=== PATIENT | female | born 1940 | race Caucasian/White ===

== ENCOUNTER 2020-02-22 17:43 | Emergency (ER) | payer MEDICARE, BC, SELFPAY ==
[2020-02-22 17:43] VITALS: BP 193/100; PULSE 92; PULSE 94; RESP 24; TEMP 36.2; O2SAT 97; O2SAT 98; BMI 33.0
[2020-02-22 18:08] VITALS: O2SAT 97
--- NOTE | 2020-02-22 18:08 | ED.DCSUM_ITS ---
History of Present Illness Chief Complaint: Shortness of Breath Detail of Chief Complaint: Daughter concern for COVID infection Informant: Patient Onset: Month(s) - She reports shortness of breath for 6 months. She is had a runny nose for 4 to 6 months. Context: Gradual Onset Timing: Continuous Quality: Shortness of breath Location: Respiratory Current Severity: Mild Maximum Severity: Moderate Worsened by: Strenuous activity Relieved by: Nothing Associated Symptoms: Allergic-like symptoms Narrative: Patient is an elderly woman who presents because daughter is concerned she may have COVID infection. Patient symptoms have been going on for 4 to 6 months. She had extensive work-up at the [facility] including stress test and blood work. There is concerned she may have rheumatoid arthritis. She has not schedule appointment with nutritional services director. She denies fever, chills or night sweats. She denies ocular, visual or auditory symptoms. She denies change in taste or smell. She denies throat pain. She denies cough, pleuritic chest pain or PND. She does have 2 pillow orthopnea. She denies nausea, vomiting or diarrhea. She denies hematemesis, melena hematochezia. Prior similar symptoms: Yes Recent Illness/Hospitalization: Yes - Past Medical History (1) Hypertension Status: Chronic (2) Depression with anxiety Status: Chronic (3) GERD (gastroesophageal reflux disease) Status: Chronic (4) Rhinitis Status: Chronic Past Medical History - Allergies and Home Meds Allergies/Adverse Reactions: Allergies No Known Allergies Allergy (Verified 01/19/14 15:08) Primary Care Physician: aJke Hester DO [Primary Care Provider] - Prior records reviewed: Yes Surgical History: noncontributory Lives: Alone Smoking Status: Never smoker Alcohol: None Drugs: None Review of Systems General: Denies: Chills, Fever, Malaise, Subjective, Weight loss Eyes: Denies: Visual changes - bilaterally, Blurred Vision - bilaterally ENT: Reports: Rhinorrhea. Denies: Bilateral ear pain, Sore throat Cardiovascular: Denies: Chest pain, Palpitations, Heart racing Respiratory: Reports: Dyspnea, Dyspnea on exertion, Orthopnea. Denies: Cough, Sputum, Paroxysmal nocturnal dyspnea Gastrointestinal: Denies: Abdominal pain, Nausea, Vomiting, Diarrhea, Melena, Hematochezia Genitourinary: Denies: Dysuria, Hematuria, Frequency Musculoskeletal: Denies: Myalgias, Arthralgias, Neck pain, Back pain, Swelling, Extremity Pain, -, - Skin: Denies: Rash, Wounds Neurological: Denies: Headache, Weakness, Numbness Psych: Reports: Depression, Anxiety Hematologic: Denies: Easy bruising, Easy bleeding Allergy: Denies: Uticaria, Swelling of the mouth Physical Exam Vital Signs/Narrative: Vital Signs Temp Pulse Resp BP Pulse Ox 02/22/20 17:43 97.1 F L 94 24 H 193/100 H 97 Inital Vital Signs reviewed: Yes General: Well nourished, Well developed, No Acute Distress Head: Normocephalic, Atraumatic Eyes: Perrl, EOMI ENT: Moist mucous membranes, TM's clear, Nasal congestion. Negative for: Dry mucous membranes, Sinus tenderness Neck: Supple, Nontender Cardiovascular: Regular rate, Regular rhythm, No murmurs, Normal S1, Normal S2 Respiratory: No distress, CTA bilaterally, Chest nontender Abdomen: Soft, Nontender, Nondistended, Normal bowel sounds, No masses Back: Nontender, Normal Inspection. Negative for: CVA tenderness Extremities: Nontender, Edema Skin: Normal color, No rash Neurological: Alert, Oriented x3, Cranial nerves II-XII grossly intact, Normal Strength, Normal Sensation Psychological: Normal affect, Normal Mood Diagnostic/Tx/Re-eval Chest X-Ray - ED: 2 View, Normal, Heart, Bony Structures, - - There is to be scarring left lower lobe. There is no obvious effusion. Patient has numerous surgical clips noted right axillary region. 02/22/20 18:17 Chest PA and Lateral [RAD] Stat Impressions Chest X-Ray 02/22/20 18:17 IMPRESSION: Interstitial lung disease probably representing pulmonary fibrosis but comparisons are not available Electronically Signed: Josiah Hernandez MD at 18:49 EDT , Service support , 02/22/20 18:17 Chest PA and Lateral [RAD] Stat Laboratory Results 02/22/20 02/22/20 18:40 18:40 WBC 6.9 RBC 3.60 L Hgb 10.7 L Hct 32.8 L MCV 91.1 MCH 29.7 MCHC 32.6 RDW Std Deviation 49.9 H RDW Coeff of Tiffany 15.2 H Plt Count 191 MPV 9.3 Immature Gran % (Auto) 0.100 Neut % (Auto) 68.0 Lymph % (Auto) 20.5 Hart % (Auto) 6.9 Eos % (Auto) 3.3 Baso % (Auto) 1.2 H Absolute Neuts (auto) 4.7 Absolute Lymphs (auto) 1.42 Nucleated RBC % 0 Sodium 140 Potassium 3.9 Chloride 108 H Carbon Dioxide 25.0 Anion Gap 7 BUN 13 Creatinine 0.95 Estim Creat Clear Calc 42.14 Est GFR (MDRD) Af Amer 73 Est GFR (MDRD) Non-Af 60 BUN/Creatinine Ratio 13.7 Glucose 161 H Calcium 8.3 L - Medical Decision Making Presents with symptoms of been present for 4 to 6 months. This may represent allergies, autoimmune disorder, congestive heart failure chest x-ray and appropriate labs were ordered. Per patient she had a significant work-up in the working gnosis is possible rheumatoid arthritis. Since patient had symptoms for 6 months and there were no acute findings will discharge to home to follow-up with nutritional services director as recommended by clinicians who cared for her at [facility]. ED Disposition - Plan for ED Patient: Disposition: Home or Assisted Living Diagnosis: Dyspnea on exertion, Nasal congestion, History of hypertension Instructions: ED Dyspnea Referrals: Jake Hester DO [Primary Care Provider] - Doctor,Your [STAFF PHYSICIAN] - 1 Week Additional Instructions: Recommend you make appointment to see nutritional services director as suggested by your doctor.
--- NOTE | 2020-02-22 18:17 | RAD_ITS ---
STUDY: X-RAY CHEST REASON FOR EXAM: Female, 79 years old. SOB X 6 [facility] TECHNIQUE: Frontal and lateral views of the chest. COMPARISON: None. FINDINGS: Surgical clips right axilla. Increased interstitial markings. The lungs are clear and expanded. There is no demonstrated pleural abnormality. Normal size heart. Normal mediastinum and chaparro. Normal visualized pulmonary arteries. Normal visualized aortic arch and descending thoracic aorta. Normal visualized thoracic spine. Normal visualized ribs, clavicles, and shoulders. There is no demonstrated abnormality of the visualized soft tissue structures of the upper abdomen. RAD/Chest PA and Lateral IMPRESSION: Interstitial lung disease probably representing pulmonary fibrosis but comparisons are not available Electronically Signed: Josiah Hernandez MD at 18:49 EDT , Service support ,
[2020-02-22 18:44] VITALS: PULSE 72; O2SAT 98
[2020-02-22 18:52] VITALS: BP 193/100; PULSE 72; RESP 20; TEMP 36.2; O2SAT 98
[2020-02-22 18:52] LABS: Absolute Lymphocyte Count 1.42 X10^3/uL (0.83-4.51); Absolute Neutrophil Count 4.7 X10^3/uL (2.0-7.7); Basophil# 0.08 X10^3/uL; Basophil% 1.2 % (0-1); Eosinophil# 0.23 X10^3/uL; Eosinophils% 3.3 % (0-5); Hematocrit 32.8 % (37-47); Hemoglobin 10.7 g/dL (12.0-15.0); Lymphocyte # 1.42 X10^3/ul (4.0); Lymphocyte % 20.5 % (19-41); Mean Corp Hgb Conc 32.6 g/dL (32-36); Mean Corpuscular Hgb 29.7 pg (27.0-32.0); Mean Corpuscular Volume 91.1 fL (81-99); Mean Platelet Vol. 9.3 fl (6.2-12.0); Monocyte# 0.48 X10^3/uL; Monocyte% 6.9 % (0-10); NRBC Flagged by Analyzer 0 % (0-5); Neutrophil # 4.72 X10^3/uL (2.7-7.7); Platelet Count 191 K/mm3 (150-450); RBC Distribution Width CV 15.2 % (11.6-14.6); RBC Distribution Width SD 49.9 fl (35.1-43.9); White Blood Count 6.9 K/mm3 (4.4-11.0)
[2020-02-22 19:00] LABS: Anion Gap 7 (5-15); BUN 13 mg/dL (7-18); BUN/Creat Ratio 13.7 RATIO (10-20); Calcium,Total 8.3 mg/dL (8.5-10.1); Chloride 108 mmol/L (98-107); Creatinine, Serum 0.95 mg/dL (0.55-1.02); EST Glomerular Filtration Rate 60 mL/min (>60); Est Glom Filt Rate - Afr Amer 73 mL/min (>60); Estimated Creatinine Clearance 42.14 ml/min; Glucose 161 mg/dL (74-106); Potassium 3.9 mmol/L (3.5-5.1); Sodium Level 140 mmol/L (136-145)
[2020-02-22 19:09] VITALS: BP 170/77; PULSE 69; RESP 26; TEMP 36.6; O2SAT 100
[2020-02-22 19:25] VITALS: BP 186/87; PULSE 80; RESP 22; O2SAT 99
== END 2020-02-22 19:43 | disposition home or self-care (01) ==
LOC: ED 19:37
PROVIDERS: Emergency Provider Emergency Medicine; PCP Internal Medicine
DX: R06.09 Other forms of dyspnea (principal); R09.81 Nasal congestion; I10 Essential (primary) hypertension; F41.8 Other specified anxiety disorders; K21.9 Gastro-esophageal reflux disease without esophagitis; R06.01 Orthopnea; J31.0 Chronic rhinitis
CPT/HCPCS: 36415; 71046; 80048; 85025; 99282

== ENCOUNTER → 2021-04-11 10:01 | Outpatient (CLI) | payer MEDICARE, BC, SELFPAY ==
[2021-04-11 10:27] LABS: Amylase 46 U/L (25-115); Lipase 109 U/L (73-393)
== END ==
PROVIDERS: PCP Internal Medicine; Visit Provider Nurse Practitioner
DX: R10.13 Epigastric pain (principal); R19.7 Diarrhea, unspecified
CPT/HCPCS: 82150; 83690

== ENCOUNTER 2021-04-14 18:56 | Emergency (ER) | payer MEDICARE, BC, SELFPAY ==
[2021-04-14 18:58] VITALS: BP 144/77; PULSE 111; RESP 18; TEMP 36.1; O2SAT 100; BMI 32.2
--- NOTE | 2021-04-14 21:31 | EDS_ITS ---
HPI History of Present Illness Chief Complaint: Abn Labs Narrative Narrative: Patient presenting for evaluation secondary to abnormal labs. Patient was in a outside facility emergency department on the secondary to abdominal pain. She had a work-up including CT abdomen and lab work. This showed the patient to be hyponatremic, to have a creatinine of 1.8, and to have some gallstones and sludge. They recommended that she stay in the hospital but she declined this. She received IV fluids and was discharged. Patient followed up with primary care today with additional lab work, and was recommended to come back to the emergency department for fluids. Patient states that her abdominal pain is resolved she has been keeping down fluids, has not been having any new signs or symptoms. Review of systems otherwise negative. [facility] Medical History Anxiety Breast cancer metastasized to bone GERD (gastroesophageal reflux disease) Hypertension Hypothyroidism Interstitial lung disease Home Medications Venlafaxine Xr [Effexor Xr] 75 mg PO DAILY 01/19/14 [History Last Taken Unknown] aspirin 325 mg PO DAILY@0800 01/19/14 [History Last Taken Unknown] benazepril-hydrochlorothiazide [Lotensin Hct 20-12.5 Tablet] 1 tab PO DAILY 01/19/14 [History Last Taken Unknown] furosemide 40 mg PO DAILY 01/19/14 [History Last Taken Unknown] omeprazole 20 mg PO DAILY 01/19/14 [History Last Taken Unknown] potassium chloride [K-Dur] 20 meq PO BID 01/19/14 [History Last Taken Unknown] cetirizine 10 mg PO DAILY 04/14/21 [History Last Taken Unknown] ergocalciferol (vitamin D2) 50,000 unit PO QWEEK 04/14/21 [History Last Taken Unknown] gabapentin 100 mg PO TID 04/14/21 [History Last Taken Unknown] levothyroxine 75 mcg PO DAILY 04/14/21 [History Last Taken Unknown] metoprolol succinate 50 mg PO DAILY 04/14/21 [History Last Taken Unknown] prednisone 10 mg PO DAILY 04/14/21 [History Last Taken Unknown] sulfamethoxazole-trimethoprim See Rx Instructions .ROUTE .COMPLEX 04/14/21 [History Last Taken Unknown] Allergy/AdvReac Type Severity Reaction Status Date / Time tramadol Allergy Other Verified 04/14/21 19:01 Surgical History H/O right mastectomy History of appendectomy Social History Smoking Status: Never smoker ROS ROS ED Constitutional Constitutional ED: Denies chills or fever(s) ENT ENT ED: Denies rhinorrhea Cardiovascular Cardiovascular: Denies chest pain Respiratory/Chest Respiratory/Chest: Denies cough or dyspnea Gastrointestinal Gastrointestinal: Denies abdominal pain, diarrhea, nausea or vomiting Genitourinary Genitourinary ED: Denies dysuria or hematuria Musculoskeletal Musculoskeletal: Denies back pain Integumentary Denies rash Neurologic Neurologic: Denies paresthesias or weakness Psychiatric Psychiatric: Denies depression Endocrine Endocrinology: Denies fatigue Allergic/Immunologic Allergic/Immunologic ED: Denies urticaria EXAM Physical Exam Const Vital Signs: 04/14/21 18:58 04/14/21 20:34 Temperature 96.9 F L Temperature Source Temporal Pulse Rate 111 H Respiratory Rate 18 Respiratory Effort Normal Respiratory Pattern Normal Blood Pressure 144/77 H Blood Pressure Mean 99 Pulse Ox 100 Oxygen Delivery Method Room Air Positive well nourished and well developed General Appearance ED: well developed and NAD HEENT Reports moist mucous membranes Negative for trauma or tenderness Eyes EOMs intact bilaterally Neck no lymphadenopathy, supple and no JVD Chest Wall inspection of chest normal Resp normal respiratory effort and clear to auscultation bilaterally Cardio regular rate, regular rhythm, no murmurs and peripheral pulses 2+ throughout Rate: other Other Details: Patient was tachycardic upon arrival, was not tachycardic upon my exam. GI normal to inspection, nondistended, normoactive bowel sounds, non-tender and no masses Palpation: soft Back/Spine normal to inspection Extremity normal to inspection General Extremety ED: Negative for tenderness Neuro oriented x3 and no sensory deficits noted Sensorium / Orientation: alert Motor Exam: strength 5/5 throughout Psych mental status grossly normal Skin no rashes or lesions noted MDM MDM MDM Narrative Medical decision making narrative: Patient presented due to concerns for abnormal labs. I reviewed the patient's lab work, she had a creatinine of 1.8 on the 11th and her lab work from today she has a creatinine of 1.08 with normalizing electrolytes. Her CT did not demonstrate cholecystitis. Her CBC today demonstrated a downward trend of her leukocytosis with a white blood cell count of 12. Patient is abdominal pain-free. At this point I do not feel that further laboratory work-up or imaging are indicated. She was recommended to continue her hydration at home. She was educated on signs and symptoms which to return for biliary colic. Patient was discharged in stable condition. Discharge Plan Triage Chief Complaint: Abn Labs ED Provider: Norm Sebastian Dx/Rx/DC Orders Clinical Impression: Hx of dehydration, Gallstones Instructions: Dehydration, ED Gallstones with Biliary Colic Prescriptions: No Action furosemide 40 MG tablet 40 mg PO DAILY RF: 0 aspirin 325 MG tablet 325 mg PO DAILY@0800 RF: 0 benazepril-hydrochlorothiazide [Lotensin HCT] 1 TAB tablet 1 tab PO DAILY RF: 0 potassium chloride [Klor-Con M20] 20 MEQ tablet 20 meq PO BID RF: 0 omeprazole 20 MG capsule 20 mg PO DAILY RF: 0 Venlafaxine Xr [Effexor Xr] 75 MG capsule 75 mg PO DAILY RF: 0 prednisone 10 mg Tablet 10 mg PO DAILY RF: 0 cetirizine 10 mg Tablet 10 mg PO DAILY RF: 0 metoprolol succinate 50 mg tablet extended release 24 hr 50 mg PO DAILY RF: 0 sulfamethoxazole-trimethoprim 800-160 mg tablet See Rx Instructions .ROUTE .COMPLEX RF: 0 levothyroxine 75 mcg Tablet 75 mcg PO DAILY RF: 0 gabapentin 100 mg capsule 100 mg PO TID RF: 0 ergocalciferol (vitamin D2) 1,250 mcg (50,000 unit) capsule 50,000 unit PO QWEEK RF: 0 Primary Care Provider: Julissa Ariza Referrals: Julissa Ariza MD [Primary Care Provider] - As Needed Disposition Disposition: Home, self care
[2021-04-14 21:46] VITALS: RESP 16
== END 2021-04-14 21:47 | disposition home or self-care (01) ==
PROVIDERS: Emergency Provider Emergency Medicine; PCP Internal Medicine
DX: E86.0 Dehydration (principal); K80.20 Calculus of gallbladder without cholecystitis without obstruction; F41.9 Anxiety disorder, unspecified; I10 Essential (primary) hypertension; K21.9 Gastro-esophageal reflux disease without esophagitis; E03.9 Hypothyroidism, unspecified; Z79.52 Long term (current) use of systemic steroids; Z79.82 Long term (current) use of aspirin; Z79.899 Other long term (current) drug therapy; Z90.11 Acquired absence of right breast and nipple
CPT/HCPCS: 99282

== ENCOUNTER 2022-10-31 21:32 | Emergency (ER) | payer MEDICARE, BC, SELFPAY ==
[2022-10-31 21:33] VITALS: BP 169/90; PULSE 96; RESP 16; TEMP 36.7; O2SAT 98; BMI 31.3
[2022-10-31] MEDS: Morphine 4 MG/ML Syringe IV (21:53)
[2022-10-31] MEDS: Ondansetron 4 MG/2 ML Vial IV (21:53)
--- NOTE | 2022-10-31 22:10 | RAD_ITS ---
INDICATION: injury EXAMINATION/TECHNIQUE: X-RAY - LEFT XR Hip Unilateral with Pelvis when performed; 2-3 Views 3 VIEWS COMPARISON: None. FINDINGS: SOFT TISSUES: Mild increased stool. No soft tissue swelling or gas. BONES/JOINTS: Status post left femoral intramedullary mirian and 2 fixation screws with 16 mm drill fragment within the left femoral intratrochanteric region. Mild osteoarthritic changes in the bilateral hips and moderate osteophytosis and joint space narrowing in the pubic symphysis. Degenerative changes in the visualized spine. Age-indeterminate nondisplaced fracture of the posterior left acetabulum. Normal alignment. Preservation of the joint space.. No sclerotic or destructive changes observed. RAD/HIP, UNI W/ Pelvis 2-3 Views IMPRESSION: Age-indeterminate nondisplaced fracture of the posterior left acetabulum. Electronically Signed: Mike Parson MD at 22:41 EST ,
--- NOTE | 2022-10-31 22:10 | RAD_ITS ---
INDICATION: injury EXAMINATION/TECHNIQUE: X-RAY - LEFT XR Knee 1 or 2 Views 2 VIEWS COMPARISON: None. FINDINGS: SOFT TISSUES: No soft tissue swelling or gas. No radiopaque foreign body. BONES/JOINTS: Femoral intramedullary mirian and distal diaphyseal fixation screw in place with associated callus. No acute fracture or subluxation.. Normal alignment. Mild joint space narrowing and osteophytosis. No sclerotic or destructive changes observed. RAD/Knee 1 or 2 Views IMPRESSION: No acute fracture or dislocation. Mild osteoarthritic changes. Electronically Signed: Mike Parson MD at 22:43 EST ,
--- NOTE | 2022-10-31 22:15 | EDS_ITS ---
HPI History of Present Illness Chief Complaint: Lower Extremity Injury Detail of Chief Complaint: Pain left knee and left femur status post fall Informant: patient Occured/Mechanism Mechanism/Context: Yes injury, Yes blunt trauma and Yes same level fall Comment: Patient states she stubbed her toe. She apparently twisted her leg and developed pain in her knee and femur. She states she has a mirian in her femur. She denies history of hip fracture. She does have a remote history of breast cancer. She states she had metastasis to bone. Daughter states she did not. She does have history of osteoporosis. Onset/Context/Timing Onset: Hours Context: Sudden Onset Timing: Continuous Quality of Pain: Dull and Aching Location: Left lower extremity from the greater trochanteric region to the knee Current Severity: Mild Maximum Severity: Severe Worsened by: Movement of the left Relieved by: None thing Associated Symptoms Associated Symptoms: Positive for Loss of Funtion Narrative Narrative: Patient is an 82-year-old woman with remote history of breast cancer and osteoporosis who had a traumatic fall with a twisting mechanism injury. She complains of knee pain. She was unable to bear weight. She arrived by ambulance in position of comfort. Her hip is flexed to 90 degrees and knee is flexed to 30 degrees. She denies head trauma. She denies neck pain. She denies headache. She denies paresthesia, anesthesia or motor works. She denies cardiac or respiratory sy mptoms. Tetanus Immunization: Unknown Prior similar symptoms: No Recent Illness/Hospitalization: No [facility] Medical History Anxiety Breast cancer metastasized to bone GERD (gastroesophageal reflux disease) Hypertension Hypothyroidism Interstitial lung disease Home Medications Venlafaxine Xr [Effexor Xr] 75 mg PO DAILY 01/19/14 [History Last Taken Unknown] aspirin 325 mg tablet 325 mg PO DAILY@0800 01/19/14 [History Last Taken Unknown] benazepril 20 mg-hydrochlorothiazide 12.5 mg tablet (Lotensin HCT) 1 tab PO DAILY 01/19/14 [History Last Taken Unknown] furosemide 40 mg tablet 40 mg PO DAILY 01/19/14 [History Last Taken Unknown] omeprazole 20 mg capsule,delayed release 20 mg PO DAILY 01/19/14 [History Last Taken Unknown] potassium chloride 20 mEq tablet,extended release(part/cryst) (Klor-Con M) 20 meq PO BID 01/19/14 [History Last Taken Unknown] cetirizine 10 mg tablet 10 mg PO DAILY 04/14/21 [History Last Taken Unknown] ergocalciferol (vitamin D2) 1,250 mcg (50,000 unit) capsule 50,000 unit PO QWEEK 04/14/21 [History Last Taken Unknown] gabapentin 100 mg capsule 100 mg PO TID 04/14/21 [History Last Taken Unknown] levothyroxine 75 mcg tablet 75 mcg PO DAILY 04/14/21 [History Last Taken Unknown] metoprolol succinate 50 mg tablet,extended release 24 hr 50 mg PO DAILY 04/14/21 [History Last Taken Unknown] prednisone 10 mg tablet 10 mg PO DAILY 04/14/21 [History Last Taken Unknown] sulfamethoxazole 800 mg-trimethoprim 160 mg tablet See Rx Instructions .Route .COMPLEX 04/14/21 [History Last Taken Unknown] oxycodone-acetaminophen 5 mg-325 mg tablet 1 tab PO Q6H PRN PRN Pain 3 days #12 TABLETS 11/01/22 [Rx Last Taken Unknown] Allergy/AdvReac Type Severity Reaction Status Date / Time tramadol Allergy Other Verified 04/14/21 19:01 tb shot Allergy Other Uncoded 10/31/22 21:36 Surgical History H/O right mastectomy History of appendectomy Social History (Updated 10/31/22 @ 22:[address] Mookie Tello MD) household members: none Smoking Status: Never smoker substance use type: does not use ROS ROS ED Constitutional Constitutional ED: Denies chills, fever(s), subjective, sweats or weight loss Eyes Eyes: Denies blurry vision, change in vision or diplopia ENT ENT ED: Denies ear pain, rhinorrhea or sore throat Cardiovascular Cardiovascular: Denies chest pain or palpitations Respiratory/Chest Respiratory/Chest: Denies cough, dyspnea or dyspnea on exertion Gastrointestinal Gastrointestinal: Denies abdominal pain, nausea or vomiting Genitourinary Genitourinary ED: Denies dysuria or hematuria Musculoskeletal Musculoskeletal: Reports other Details: Per HPI narrative ; Denies arthralgias, myalgias or neck pain Integumentary Denies Abrasions or rash Neurologic Neurologic: Denies headache(s), paresthesias or weakness Hematologic/Lymphatic Hematologic/Lymphatic: Denies easy bleeding or easy bruising EXAM Physical Exam Const Vital Signs: 10/31/22 21:33 Temperature 98.0 F Temperature Source Temporal Pulse Rate 96 Respiratory Rate 16 Blood Pressure 169/90 H Blood Pressure Mean 116 Pulse Ox 98 Oxygen Delivery Method Room Air Positive well nourished, well developed and obese Constitutional Narrative: Patient appears uncomfortable. General Appearance ED: well developed; Negative for NAD Nutritional Appearance: obese HEENT Reports moist mucous membranes HEENT Narrative: There is no evidence of trauma to the ear. There is no septal deviation hematoma. There is no dental trauma. normocephalic and atraumatic Eyes Eyes Narrative: Pupils equal round reactive. Extract [place]. Sclera is anicteric. Conjunctive is pink. Neck full ROM and supple Neck Narrative: There is no pain ovation cervical spine. C-spine was cleared as criteria. Resp normal respiratory effort, no retractions and clear to auscultation bilaterally Cardio regular rate, regular rhythm, S1 normal heart sound, S2 normal heart sound and no murmurs GI non-tender, non-distended and no masses Palpation: soft Back/Spine no CVA tenderness Extremity Extremity Narrative: The left knee is swollen. There is pain ovation over the patella. There is an effusion. Varus valgus stress testing causes pain with no obvious laxity. Unable to perform modified Lara's or Javy's test because of pain. Patient does have pain in the greater trochanteric region with logrolling. She does not complain of pain in the groin. There is no pain ovation over the pubic symphysis, left ischial tuberosity or left iliac wing. General Extremety ED: Yes weight-bearing difficulty; Negative for cyanosis or edema General Extremity: weight-bearing difficulty; Negative for cyanosis or edema Neuro oriented x3, CN's II-XII intact bilaterally, No moves all extremities and no sensory deficits noted Sensorium / Orientation: alert Motor Exam: strength 5/5 throughout Plantar Reflex: Downgoing: bilateral Psych mental status grossly normal Skin no wounds Lesions: no lesions Rashes: no rashes MDM MDM MDM Narrative Medical decision making narrative: IV was established. Patient was medicated with 4 mg of Zofran and 4 mg of morphine. X-ray of the femur and knee were ordered to evaluate for contusion versus fracture versus meniscus/ACL injury. Imaging of the head and neck was not obtained per the Stephens CT head rule and Nexus criteria. In light of the formal read by radiologist CT of the left hip was obtained to assess if the fracture is acute or not and if there is any displacement prior to speaking with orthopedics regarding treatment and plan. CT reveals no evidence of fracture. Patient was referred to Dr. Vlad Morris. Crutches and weight-bear as tolerated knee immobilizer. Radiography X-Ray: - (2 view x-ray of the knee was obtained and reveals an effusion. There is evidence of prior surgery with intramedullary mirian. There is no fracture, subluxation or dislocation noted. Three-view x-ray of the left hip reveals question of a acetabular fracture seen only on one view. Radiologist read th) Diagnostic Testing: Clinical Impression(s) from Imaging Studies Hip/Pelvis X-Ray 10/31/22 22:10 IMPRESSION: Age-indeterminate nondisplaced fracture of the posterior left acetabulum. Electronically Signed: Mike Parson MD at 22:41 EST Reading Location ID and State: [employer] / [place] [employer] , Service support , Knee X-Ray 10/31/22 22:10 IMPRESSION: No acute fracture or dislocation. Mild osteoarthritic changes. Electronically Signed: Mike Parson MD at 22:43 EST Reading Location ID and State: [facility] / [place] [employer] , Service support , Pelvis CT 10/31/22 22:53 IMPRESSION: 1. No acute fracture or dislocation. 2. Osteoarthritic changes in the hips, pelvis and spine. 3. Left adnexal 2 cm cystic structure, abnormal for this patient''s age group. Can be further characterized with nonemergent pelvic ultrasound. Electronically Signed: Mike Parson MD at 23:37 EST Reading Location ID and State: [email or web address] / [place] [employer] , Service support , Discharge Plan Triage Chief Complaint: Lower Extremity Injury ED Provider: Mookie Tello Dx/Rx/DC Orders Clinical Impression: Traumatic effusion of knee joint, Hypertension, Inability to ambulate due to left knee Instructions: ED Knee Effusion Prescriptions: New oxycodone-acetaminophen [oxycodone-acetaminophen] 5-325 mg tablet 1 tab PO Q6H PRN PRN (Reason: Pain) 3 Days Qty: 12 0RF No Action furosemide 40 MG tablet 40 mg PO DAILY aspirin 325 MG tablet 325 mg PO DAILY@0800 benazepril-hydrochlorothiazide [Lotensin HCT] 1 TAB tablet 1 tab PO DAILY potassium chloride [Klor-Con M20] 20 MEQ tablet 20 meq PO BID omeprazole 20 MG capsule 20 mg PO DAILY Venlafaxine Xr [Effexor Xr] 75 MG capsule 75 mg PO DAILY prednisone 10 mg Tablet 10 mg PO DAILY cetirizine 10 mg Tablet 10 mg PO DAILY metoprolol succinate 50 mg tablet extended release 24 hr 50 mg PO DAILY Label Comments: TAKE 1 TABLET BY MOUTH DAILY sulfamethoxazole-trimethoprim 800-160 mg tablet See Rx Instructions .ROUTE .COMPLEX Label Comments: Take 1 tablet by mouth three times a week. Rx Instructions: 1 TAB orally 3 times a week levothyroxine 75 mcg Tablet 75 mcg PO DAILY gabapentin 100 mg capsule 100 mg PO TID Label Comments: TAKE 2 CAPSULES BY MOUTH THREE TIMES DAILY FOR 2 WEEKS; THEN DECREASE TO 1 CAPSULE THREE TIMES DAILY ergocalciferol (vitamin D2) 1,250 mcg (50,000 unit) capsule 50,000 unit PO QWEEK Label Comments: Take 1 capsule by mouth one time a week. Primary Care Provider: Julissa Ariza Referrals: Julissa Ariza MD [Primary Care Provider] - Disposition Disposition: Home, Self Care
--- NOTE | 2022-10-31 22:53 | CT_ITS ---
EXAM: CT Pelvis W/O Contrast Injection HISTORY: Evaluate possible posterior left acetabular fractu TECHNIQUE: CT Pelvis W/O Contrast Injection A radiation dose optimization technique was used for this scan. COMPARISON: 10/31/2022. LIMITATIONS: None. FINDINGS: BOWEL/MESENTERY: Scattered colonic diverticulosis without discrete evidence of acute diverticulitis.. APPENDIX: Not visualized. PERITONEUM: Moderate atherosclerotic calcifications. REPRODUCTIVE ORGANS: 2 cm cystic structure in the left adnexa. BONES/SOFT TISSUES: Status post left femoral intramedullary mirian and femoral neck fixation screws and drill fragment in the left femoral intratrochanteric region. The prior noted left posterior acetabular fracture not visualized. No acute osseous abnormality. Mild osteoarthritic changes in the bilateral hips. Moderate degenerative changes in the pubic symphysis. Degenerative changes in the visualized spine with severe spinal canal narrowing worst at L4-5 due to disc bulge and facet hypertrophy. OTHER: Small fat-containing umbilical hernia. CT/Pelvis without IV Contrast IMPRESSION: 1. No acute fracture or dislocation. 2. Osteoarthritic changes in the hips, pelvis and spine. 3. Left adnexal 2 cm cystic structure, abnormal for this patient''s age group. Can be further characterized with nonemergent pelvic ultrasound. Electronically Signed: Mike Parson MD at 23:37 EST ,
[2022-11-01] MEDS: Morphine 4 MG/ML Syringe IV (01:57)
[2022-11-01 02:45] VITALS: RESP 18
--- NOTE | 2022-11-01 02:46 | ED.RN ---
PT AND PT FAMILY STATE THEY WOULD LIKE PRESCRIPTION SENT TO [facility] De Correspondent. DR. MENDES NOTIFIED. DR. MENDES STATED HE WILL SEND THE PRESCRIPTION TO [facility].
== END 2022-11-01 02:47 | disposition home or self-care (01) ==
PROVIDERS: Emergency Provider Emergency Medicine; PCP Internal Medicine; Visit Provider Emergency Medicine
DX: M25.462 Effusion, left knee (principal); R26.2 Difficulty in walking, not elsewhere classified; I10 Essential (primary) hypertension; E03.9 Hypothyroidism, unspecified; E66.9 Obesity, unspecified; Z79.899 Other long term (current) drug therapy
CPT/HCPCS: 72192; 73502; 73560; 96374; 96375; 99283; A4216; J2405

== ENCOUNTER 2023-06-06 13:09 | Emergency (ER) | payer MEDICARE, BC, SELFPAY ==
[2023-06-06 13:11] VITALS: BP 160/106; PULSE 87; RESP 16; TEMP 36.4; O2SAT 98; BMI 31.4
--- NOTE | 2023-06-06 13:12 | EKG12_ITS ---
Test Reason : POSS STROKE Blood Pressure : / mmHG Vent. Rate : 086 BPM Atrial Rate : 086 BPM P-R Int : 186 ms QRS Dur : 078 ms QT Int : 400 ms P-R-T Axes : 043 -03 188 degrees QTc Int : 478 ms Sinus rhythm with occasional Premature ventricular complexes T wave abnormality, consider anterolateral ischemia Prolonged QT Abnormal ECG Confirmed by TERESA GALLO, GARETT ([id number]), editorial clerk BILL WEI ([id number]) on 06/07/2023 1:29:22 PM Referred By: Confirmed By:GARETT MOORE MD
--- NOTE | 2023-06-06 13:14 | EX.ED.DYSGE1 ---
HPI <SAVANNAH Roche - Last Filed: 06/06/23 15:11> History of Present Illness Chief Complaint: Neuro S/Sx Narrative Narrative: 83-year-old female with PMH of HTN, hypothyroidism, breast cancer presents with change in speech. Her daughter lives with her and at 11 AM noted she was speaking slowly. Her speech was not slurred or incoherent. Patient states her mouth feels dry. She is also feeling weak with ambulation and has had months of dyspnea on exertion. Daughter is concerned about her heart. She denies chest pain and is not short of breath at rest. She has no headache, nausea or vomiting, or focal motor or sensory changes. PFSH <SAVANNAH Roche - Last Filed: 06/06/23 15:11> [facility]LY [facility] Medical History Anxiety Breast cancer metastasized to bone GERD (gastroesophageal reflux disease) Hypertension Hypothyroidism Interstitial lung disease Home Medications Venlafaxine Xr [Effexor Xr] 75 mg PO DAILY 01/19/14 [History Last Taken Unknown] benazepril 20 mg-hydrochlorothiazide 12.5 mg tablet (Lotensin HCT) 1 tab PO DAILY 01/19/14 [History Last Taken Unknown] furosemide 40 mg tablet 40 mg PO DAILY 01/19/14 [History Last Taken Unknown] omeprazole 20 mg capsule,delayed release 20 mg PO DAILY 01/19/14 [History Last Taken Unknown] potassium chloride 20 mEq tablet,extended release(part/cryst) (Klor-Con M) 20 meq PO BID 01/19/14 [History Last Taken Unknown] cetirizine 10 mg tablet 10 mg PO DAILY 04/14/21 [History Last Taken Unknown] ergocalciferol (vitamin D2) 1,250 mcg (50,000 unit) capsule 50,000 unit PO QWEEK 04/14/21 [History Last Taken Unknown] levothyroxine 75 mcg tablet 75 mcg PO MOTUWETHFR 04/14/21 [History Last Taken Unknown] metoprolol succinate 50 mg tablet,extended release 24 hr 50 mg PO DAILY 04/14/21 [History Last Taken Unknown] prednisone 10 mg tablet 10 mg PO DAILY 04/14/21 [History Last Taken Unknown] sulfamethoxazole 800 mg-trimethoprim 160 mg tablet See Rx Instructions .Route .COMPLEX 04/14/21 [History Last Taken Unknown] levothyroxine 50 mcg tablet 50 mcg PO SUSA 11/01/22 [History Last Taken Unknown] oxycodone-acetaminophen 5 mg-325 mg tablet 1 tab PO Q6H PRN PRN Pain 3 days #12 TABLETS 11/01/22 [Rx Last Taken Unknown] Allergy/AdvReac Type Severity Reaction Status Date / Time tramadol Allergy Other Verified 06/06/23 13:19 tb shot AdvReac Unknown Other Uncoded 06/06/23 13:19 Surgical History H/O right mastectomy History of appendectomy Social History (Updated 10/31/22 @ 22:[address] Mookie Tello MD) household members: none Smoking Status: Never smoker substance use type: does not use ROS <SAVANNAH Roche - Last Filed: 06/06/23 15:11> ROS ED ROS Narrative Constitutional: Negative for fever, chills, malaise. Eyes: Negative for visual change. ENT: Negative for sore throat, ear pain, rhinorrhea. CVS: Negative for palpitations, chest pain, syncope. Respiratory: Positive for shortness of breath. Negative for cough. GI: Negative for abdominal pain, nausea, vomiting, diarrhea. : Negative for dysuria. Neuro: Negative for headache, motor/sensory dysfunction. EXAM <SAVANNAH Roche - Last Filed: 06/06/23 15:11> Physical Exam Narrative Exam Narrative: CONST: Patient sitting in no acute distress. EYES: Normal inspection. PERRLA, EOMI. ENT: Normal inspection, dry mucous membranes. NECK: Normal inspection. RESP: No respiratory distress, CTAB. CVS: Regular rate and rhythm, no murmur, no gallop. ABD: Soft and nontender, no guarding or rebound, nondistended. SKIN: Color normal, no rash, warm, dry, intact. EXTREMITIES: Normal appearance, no pedal edema. NEURO: Oriented x4. Visual dunaway intact, normal upper and lower extremity strength, sensation, no drift, normal [id number] and [id number], normal speech, no extinction. NIH is 0. PSYCH: Normal affect. Const Vital Signs: 06/06/23 13:11 06/06/23 13:28 06/06/23 15:08 Temperature 97.6 F L Temperature Source Oral Pulse Rate 87 86 92 Respiratory Rate 16 18 Blood Pressure 160/106 H 160/106 H Blood Pressure Mean 124 124 Pulse Ox 98 98 97 Oxygen Delivery Method Room Air Room Air <Dr. Jan Mendez MD - Last Filed: 06/06/23 13:52> Physical Exam Const Vital Signs: 06/06/23 13:11 06/06/23 13:28 06/06/23 15:08 Temperature 97.6 F L Temperature Source Oral Pulse Rate 87 86 92 Respiratory Rate 16 18 Blood Pressure 160/106 H 160/106 H Blood Pressure Mean 124 124 Pulse Ox 98 98 97 Oxygen Delivery Method Room Air Room Air MDM <SAVANNAH Roche - Last Filed: 06/06/23 15:11> MDM MDM Narrative Medical decision making narrative: History gathered from: Patient and daughter Daughter thought patient's speech was slow around 11 AM prompting her to come in. Code stroke was called in triage. Patient is awake and alert with GCS 15. During my examination her speech is normal with no aphasia or dysarthria. She is neurologically intact with NIH of 0 so I canceled the code stroke and do not think she needs a CT brain scan. She has dry mucous membranes with an otherwise unremarkable exam. Her dry mouth may have caused her speech difficulty earlier. Patient and daughter also concerned about this ongoing dyspnea on exertion for last couple months so cardiac work-up was ordered. CBC is WNL. BMP shows mild hypokalemia at 3.3 which was replaced p.o., and slight elevation of creatinine to 1.22 with normal electrolytes. Clinically she looks dehydrated so she was given 1 mg of IV fluids. EKG is sinus rhythm with nonspecific T wave inversions and troponin is 29 ruling out ACS. CXR shows no acute process. I suspect her chronic dyspnea on exertion is from the radiation damage causing interstitial lung disease. She states her inspector metal can referred her to cardiology for evaluation which is appropriate. Patient was discharged in stable condition. Differential for chronic dyspnea: Pneumonia, viral URI, CHF, interstitial lung disease among others In I have personally performed a face to face assessment of the patient and have reviewed the HIRAM Note. I performed a substantive portion of the visit including all aspects of the following. My merida findings include: History is 83-year-old female daughter brought her in because she thought that she just has not been herself lately and was concerned she may be having underlying cardiac disease. She has never had an VT or any cardiac surgery. She has had negative stress test in the past and daughter believes. Patient's had breast cancer and is undergoing radiation therapy for it which it caused her wound disease from radiation therapy. She denies any chest pain. No hemoptysis. Exam is [HEENT exam unremarkable. Normal speech. No facial droop. Extra motions are intact. Neck nontender. No JVD. Lungs clear to auscultation bilaterally. Heart regular rhythm no murmur. Chest wall nontender. Abdomen soft nontender. Moving all 4 extremities. Calves are nontender without edema or cords. Equal symmetrical radial pulses. Neurologically she is awake and alert. Answer questions following commands. NIH is 0.] Medical Decision Making [83-year-old brought in for evaluation of possible underlying cardiac disease. She is not having chest pain. She has a benign exam.] Other additions or changes: [None] Lab Data Labs: Laboratory Results - last 24 hr 06/06/23 06/06/23 06/06/23 13:15 13:15 14:25 WBC Cancelled 8.7 Corrected WBC Cancelled RBC Cancelled 4.20 Hgb Cancelled 13.4 Hct Cancelled 40.0 MCV Cancelled 95.2 MCH Cancelled 31.9 MCHC Cancelled 33.5 RDW Std Deviation Cancelled 49.1 H RDW Coeff of Tiffany Cancelled 14.4 Plt Count Cancelled 160 MPV Cancelled 11.2 Immature Gran % (Auto) Cancelled 0.100 Neut % (Auto) Cancelled 72.1 H Lymph % (Auto) Cancelled 16.1 L Duval % (Auto) Cancelled 8.9 Eos % (Auto) Cancelled 1.1 Baso % (Auto) Cancelled 1.7 H Absolute Neuts (auto) Cancelled 6.3 Absolute Lymphs (auto) Cancelled 1.41 Total Counted Cancelled Neutrophils % (Manual) Cancelled Band Neutrophils % Cancelled Lymphocytes % (Manual) Cancelled Monocytes % (Manual) Cancelled Eosinophils % (Manual) Cancelled Basophils % (Manual) Cancelled Metamyelocytes % Cancelled Myelocytes % Cancelled Promyelocytes % Cancelled Blast Cells % Cancelled Plasma Cell % (Manual) Cancelled Other Cells % Cancelled Nucleated RBC % Cancelled 0 Nucleated RBCs/100 WBC Cancelled Differential Comment Cancelled Diff Path Review Cancelled Hypersegmented Neuts Cancelled Atypical Lymphocytes Cancelled Reactive Lymphocytes Cancelled Smudge Cells Cancelled Toxic Granulation Cancelled Toxic Vacuolation Cancelled Dohle Bodies Cancelled Shaheed Rods Cancelled Platelet Estimate Cancelled Plt Morphology Comment Cancelled RBC Morphology Cancelled Cancelled Polychromasia Cancelled Hypochromasia Cancelled Poikilocytosis Cancelled Basophilic Stippling Cancelled Anisocytosis Cancelled Microcytosis Cancelled Macrocytosis Cancelled Spherocytes Cancelled Sickle Cells Cancelled Target Cells Cancelled Tear Drop Cells Cancelled Ovalocytes Cancelled Stomatocytes Cancelled Goff-Bearden Bodies Cancelled [place] Cells Cancelled Bite Cells Cancelled Crenated Cell Cancelled Acanthocytes (Spur) Cancelled Rouleaux Cancelled Schistocytes Cancelled Sodium 141 Potassium 3.3 L Chloride 106 Carbon Dioxide 26.0 Anion Gap 9 BUN 15 Creatinine 1.22 H Estim Creat Clear Calc 29.41 Est GFR (MDRD) Af Amer 54 L Est GFR (MDRD) Non-Af 45 L BUN/Creatinine Ratio 12.3 Glucose 132 H Calcium 9.2 Troponin I High Sens 29 Radiography Diagnostic Testing: Clinical Impression(s) from Imaging Studies Chest X-Ray 06/06/23 13:45 IMPRESSION: Chronic interstitial lung disease. Trace pleural effusions with right basilar atelectasis or inflammation. Electronically Signed: Rupal Rainey MD at 13:56 EDT Reading Location ID and State: [facility] / [place] Tel , Service support , EKG Initial EKG: Attestation: I personally reviewed and interpreted this EKG as follows: Comments: Sinus rhythm with occasional PVCs, 86 bpm, nonspecific inverted T waves, no STEMI criteria Prior EKG tracings: available for review Prior: Changed <Dr. Jan Mendez MD - Last Filed: 06/06/23 13:52> [facility] Narrative Medical decision making narrative: History gathered from: Patient and daughter Daughter thought patient's speech was slow around 11 AM prompting her to come in. Code stroke was called in triage. Patient is awake and alert with GCS 15. During my examination her speech is normal with no aphasia or dysarthria. She is neurologically intact with NIH of 0 so I canceled the code stroke. She does have dry mucous membranes with an otherwise unremarkable exam. Her dry mouth may have caused her speech difficulty earlier. Patient and daughter also concerned about this ongoing dyspnea on exertion for last couple months so cardiac work-up was ordered. In I have personally performed a face to face assessment of the patient and have reviewed the HIRAM Note. I performed a substantive portion of the visit including all aspects of the following. My merida findings include: History is 83-year-old female daughter brought her in because she thought that she just has not been herself lately and was concerned she may be having underlying cardiac disease. She has never had an VT or any cardiac surgery. She has had negative stress test in the past and daughter believes. Patient's had breast cancer and is undergoing radiation therapy for it which it caused her wound disease from radiation therapy. She denies any chest pain. No hemoptysis. Exam is [HEENT exam unremarkable. Normal speech. No facial droop. Extra motions are intact. Neck nontender. No JVD. Lungs clear to auscultation bilaterally. Heart regular rhythm no murmur. Chest wall nontender. Abdomen soft nontender. Moving all 4 extremities. Calves are nontender without edema or cords. Equal symmetrical radial pulses. Neurologically she is awake and alert. Answer questions following commands. NIH is 0.] Medical Decision Making [83-year-old brought in for evaluation of possible underlying cardiac disease. She is not having chest pain. She has a benign exam.] Other additions or changes: [None] History & Record Review Discussion w/independent historian: Patient and Family Lab Data Attestation: I reviewed the patient's lab results. Labs: Laboratory Results - last 24 hr 06/06/23 06/06/23 06/06/23 13:15 13:15 14:25 WBC Cancelled 8.7 Corrected WBC Cancelled RBC Cancelled 4.20 Hgb Cancelled 13.4 Hct Cancelled 40.0 MCV Cancelled 95.2 MCH Cancelled 31.9 MCHC Cancelled 33.5 RDW Std Deviation Cancelled 49.1 H RDW Coeff of Tiffany Cancelled 14.4 Plt Count Cancelled 160 MPV Cancelled 11.2 Immature Gran % (Auto) Cancelled 0.100 Neut % (Auto) Cancelled 72.1 H Lymph % (Auto) Cancelled 16.1 L Duval % (Auto) Cancelled 8.9 Eos % (Auto) Cancelled 1.1 Baso % (Auto) Cancelled 1.7 H Absolute Neuts (auto) Cancelled 6.3 Absolute Lymphs (auto) Cancelled 1.41 Total Counted Cancelled Neutrophils % (Manual) Cancelled Band Neutrophils % Cancelled Lymphocytes % (Manual) Cancelled Monocytes % (Manual) Cancelled Eosinophils % (Manual) Cancelled Basophils % (Manual) Cancelled Metamyelocytes % Cancelled Myelocytes % Cancelled Promyelocytes % Cancelled Blast Cells % Cancelled Plasma Cell % (Manual) Cancelled Other Cells % Cancelled Nucleated RBC % Cancelled 0 Nucleated RBCs/100 WBC Cancelled Differential Comment Cancelled Diff Path Review Cancelled Hypersegmented Neuts Cancelled Atypical Lymphocytes Cancelled Reactive Lymphocytes Cancelled Smudge Cells Cancelled Toxic Granulation Cancelled Toxic Vacuolation Cancelled Dohle Bodies Cancelled Shaheed Rods Cancelled Platelet Estimate Cancelled Plt Morphology Comment Cancelled RBC Morphology Cancelled Cancelled Polychromasia Cancelled Hypochromasia Cancelled Poikilocytosis Cancelled Basophilic Stippling Cancelled Anisocytosis Cancelled Microcytosis Cancelled Macrocytosis Cancelled Spherocytes Cancelled Sickle Cells Cancelled Target Cells Cancelled Tear Drop Cells Cancelled Ovalocytes Cancelled Stomatocytes Cancelled Goff-Bearden Bodies Cancelled [place] Cells Cancelled Bite Cells Cancelled Crenated Cell Cancelled Acanthocytes (Spur) Cancelled Rouleaux Cancelled Schistocytes Cancelled Sodium 141 Potassium 3.3 L Chloride 106 Carbon Dioxide 26.0 Anion Gap 9 BUN 15 Creatinine 1.22 H Estim Creat Clear Calc 29.41 Est GFR (MDRD) Af Amer 54 L Est GFR (MDRD) Non-Af 45 L BUN/Creatinine Ratio 12.3 Glucose 132 H Calcium 9.2 Troponin I High Sens 29 Radiography Chest X-Ray - ED: 2 View, Read by ED Physician, Normal, Heart, Lungs, Mediastinum, Bony Structures, No Acute Disease and Chronic Changes Diagnostic Testing: Clinical Impression(s) from Imaging Studies Chest X-Ray 06/06/23 13:45 IMPRESSION: Chronic interstitial lung disease. Trace pleural effusions with right basilar atelectasis or inflammation. Electronically Signed: Rupal Rainey MD at 13:56 EDT , X-ray, 2 views, AP and lateral shows no acute abnormality. Normal cardiac silhouette. Normal mediastinum. Discharge Plan Triage Chief Complaint: Neuro S/Sx ED Midlevel Provider: Valery Pisano ED Provider: Jan Mendez Dx/Rx/DC Orders Clinical Impression: History of interstitial lung disease, Mild dehydration, Acute hypokalemia Instructions: Dehydration Prescriptions: No Action furosemide 40 MG tablet 40 mg PO DAILY benazepril-hydrochlorothiazide [Lotensin HCT] 1 TAB tablet 1 tab PO DAILY potassium chloride [Klor-Con M20] 20 MEQ tablet 20 meq PO BID omeprazole 20 MG capsule 20 mg PO DAILY Venlafaxine Xr [Effexor Xr] 75 MG capsule 75 mg PO DAILY prednisone 10 mg Tablet 10 mg PO DAILY cetirizine 10 mg Tablet 10 mg PO DAILY metoprolol succinate 50 mg tablet extended release 24 hr 50 mg PO DAILY Patient Comments: TAKE 1 TABLET BY MOUTH DAILY sulfamethoxazole-trimethoprim 800-160 mg tablet See Rx Instructions .ROUTE .COMPLEX Patient Comments: Take 1 tablet by mouth three times a week. Rx Instructions: 1 TAB orally 3 times a week levothyroxine 75 mcg Tablet 75 mcg PO MOTUWETHFR ergocalciferol (vitamin D2) 1,250 mcg (50,000 unit) capsule 50,000 unit PO QWEEK Patient Comments: Take 1 capsule by mouth one time a week. levothyroxine 50 mcg tablet 50 mcg PO SUSA Patient Comments: TAKE 75 MCGS WEDNESDAY TO WEDNESDAY ON AN EMPTY STOMACH AND 50 MCGS WEDNESDAY TO WEDNESDAY FOR FOR THYROID oxycodone-acetaminophen [oxycodone-acetaminophen] 1 TABLET tablet 1 tab PO Q6H PRN PRN (Reason: Pain) 3 Days Qty: 12 0RF Primary Care Provider: Julissa Ariza Referrals: Julissa Ariza MD [Primary Care Provider] - Activity Restrictions/Additional Instructions: Please increase fluids at home and follow-up with your primary care doctor. Disposition Disposition: Home, Self Care
[2023-06-06 13:28] VITALS: BP 160/106; PULSE 86; RESP 18; O2SAT 98
[2023-06-06 13:33] VITALS: BMI 32.3
--- NOTE | 2023-06-06 13:45 | RAD_ITS ---
HISTORY: dyspnea. TECHNIQUE: XR Chest 2 Views. COMPARISON: 02/22/2020. FINDINGS: CARDIOMEDIASTINAL BORDERS: Cardiac silhouette and mediastinal contour unchanged with mild cardiomegaly and calcification of the aorta. LUNGS: Chronic peripheral interstitial opacities. Mild linear right basilar opacity PLEURA: Trace pleural effusions. OSSEOUS STRUCTURES: Degenerative change. Old right lateral rib fractures. High riding humeral heads with chronic rotator cuff disease. Right axillary surgical clips. RAD/Chest PA and Lateral IMPRESSION: Chronic interstitial lung disease. Trace pleural effusions with right basilar atelectasis or inflammation. Electronically Signed: Rupal Rainey MD at 13:56 EDT ,
[2023-06-06 13:50] LABS: Anion Gap 9 (5-15); BUN 15 mg/dL (7-18); BUN/Creat Ratio 12.3 RATIO (10-20); Calcium,Total 9.2 mg/dL (8.5-10.1); Chloride 106 mmol/L (98-107); Creatinine, Serum 1.22 mg/dL (0.55-1.02); EST Glomerular Filtration Rate 45 mL/min (>60); Est Glom Filt Rate - Afr Amer 54 mL/min (>60); Estimated Creatinine Clearance 29.41 ml/min; Glucose 132 mg/dL (74-106); Potassium 3.3 mmol/L (3.5-5.1); Sodium Level 141 mmol/L (136-145); Troponin-I HS 29 pg/mL (3.0-54.0)
[2023-06-06] MEDS: 0.9% Normal Saline 1,000 ML 999 ML IV (14:28)
[2023-06-06 14:46] LABS: Absolute Lymphocyte Count 1.41 X10^3/uL (0.83-4.51); Absolute Neutrophil Count 6.3 X10^3/uL (2.0-7.7); Basophil# 0.15 X10^3/uL; Basophil% 1.7 % (0-1); Eosinophils% 1.1 % (0-5); Hemoglobin 13.4 g/dL (12.0-15.0); Lymphocyte # 1.41 X10^3/ul (0.83-4.51); Lymphocyte % 16.1 % (19-41); Mean Corp Hgb Conc 33.5 g/dL (32-36); Mean Corpuscular Hgb 31.9 pg (27.0-32.0); Mean Corpuscular Volume 95.2 fL (81-99); Mean Platelet Vol. 11.2 fl (6.2-12.0); Monocyte# 0.78 X10^3/uL; Monocyte% 8.9 % (0-10); NRBC Flagged by Analyzer 0 % (0-5); Neutrophil # 6.29 X10^3/uL (2.7-7.7); Neutrophil % 72.1 % (47-70); Platelet Count 160 K/mm3 (150-450); RBC Distribution Width CV 14.4 % (11.6-14.6); RBC Distribution Width SD 49.1 fl (35.1-43.9); White Blood Count 8.7 K/mm3 (4.4-11.0)
[2023-06-06] MEDS: Potassium Chloride Oral Tablet 20 MEQ PO (15:03)
[2023-06-06 15:08] VITALS: PULSE 92; O2SAT 97
[2023-06-06 15:39] VITALS: BP 163/108; PULSE 92; RESP 18; O2SAT 99
[2023-06-09 13:06] LABS: Bedside Glucose 130 mg/dL (74-106)
== END 2023-06-06 15:52 | disposition home or self-care (01) ==
PROVIDERS: Physician Assistant; Emergency Provider Emergency Medicine; PCP Internal Medicine; Visit Provider Emergency Medicine
DX: E86.0 Dehydration (principal); J84.9 Interstitial pulmonary disease, unspecified; C50.919 Malignant neoplasm of unspecified site of unspecified female breast; E87.6 Hypokalemia; E03.9 Hypothyroidism, unspecified; Z85.3 Personal history of malignant neoplasm of breast
CPT/HCPCS: 71046; 80048; 82962; 84484; 85025; 93005; 96360; 99282; J7030; A4216

== ENCOUNTER 2025-04-01 12:14 | Inpatient (IN) | payer MEDICARE, BC, MEDICAID, SELFPAY ==
[2025-04-01] VITALS (20 sets, daily range): BP systolic 73–122; BP diastolic 49–79; PULSE 92–118; RESP 23–30; TEMP 36.8–37.7; O2SAT 93–99; BMI 32.5; BMI 32.8
--- NOTE | 2025-04-01 12:28 | CT_ITS ---
EXAM: BRAIN/HEAD WITHOUT CONTRAST CLINICAL HISTORY: 84 y/o F with ALOC. COMPARISON: None. TECHNIQUE: Routine CT imaging of the head without IV contrast. Additional multiplanar reformats were obtained. Dose reduction techniques were used including intermediate exposure control (AEC),iterative reconstruction technique, and/or mA and/or KV dose adjustments based on patient's size. FINDINGS: Moderate generalized cerebral volume loss with concordant prominence of the ventricles and subarachnoid spaces. Moderate patchy supratentorial white matter hypodensities. The fernandez-white matter interfaces are otherwise maintained. No large intracranial hemorrhage or herniation. Prior ocular lens replacements. The visualized paranasal sinuses and mastoids are unremarkable. No acute calvarial fracture or scalp hematoma. CT/Brain/Head without Contrast IMPRESSION: No acute intracranial finding. Reading Location: [id number]
--- NOTE | 2025-04-01 12:29 | EKG12_ITS ---
Test Reason : ALT LOC Blood Pressure : */* mmHG Vent. Rate : 112 BPM Atrial Rate : 112 BPM P-R Int : 158 ms QRS Dur : 70 ms QT Int : 330 ms P-R-T Axes : 41 -29 36 degrees QTcB Int : 450 ms Sinus tachycardia Cannot rule out Anteroseptal infarct , age undetermined Abnormal ECG Confirmed by Norm King ([id number]), editor house organ BILL WEI ([id number]) on 04/02/2025 11:01:13 AM Referred By: Sonido Bardales Confirmed By: Norm King
--- NOTE | 2025-04-01 12:30 | EDS_ITS ---
HPI History of Present Illness Chief Complaint: Unresponsive Informant: patient and EMS Onset/Context/Timing Onset: Today Context: - (Unknown) Timing: Continuous Current Severity: Moderate Maximum Severity: Moderate Narrative Narrative: 84-year-old female from home with reportedly a history of hypertension, underlying lung disease and breast cancer with metastases. Found unresponsive brought in by squad. Initially hypotensive treated with fluid bolus and pressure improved. Patient is a very limited informant at this time. She will open her eyes. She is really not answering questions. Currently there is no family or friends present. Prior similar symptoms: No (Unknown) Recent Illness/Hospitalization: No (unknown) [facility] Medical History Anxiety Hypothyroidism GERD (gastroesophageal reflux disease) Interstitial lung disease Hypertension Breast cancer metastasized to bone Home Medications ?Medication ?Instructions ?Recorded ?Last Taken ?Type Venlafaxine Xr [Effexor Xr] 75 mg PO DAILY 01/19/14 Un known History benazepril 20 1 tab PO DAILY 01/19/14 Unkn own History mg-hydrochlorothiazide 12.5 mg tablet (Lotensin HCT) furosemide 40 mg tablet 40 mg PO DAILY 01/19/14 Unkn own History omeprazole 20 mg capsule,delayed 20 mg PO DAILY Unknown History release potassium chloride 20 mEq 20 meq PO BID 01/19/14 Unkno wn History tablet,extended release(part/cryst) (Klor-Con M) cetirizine 10 mg tablet 10 mg PO DAILY 04/14/21 Unkn own History ergocalciferol (vitamin D2) 1,250 50,000 unit PO QWEEK 04/14/21 Unknown History mcg (50,000 unit) capsule levothyroxine 75 mcg tablet 75 mcg PO MOTUWETHFR 04/14 Unknown History metoprolol succinate 50 mg 50 mg PO DAILY 04/14/21 Unk nown History tablet,extended release 24 hr prednisone 10 mg tablet 10 mg PO DAILY 04/14/21 Unkn own History sulfamethoxazole 800 See Rx Instructions .Route . COMPLEX 04/14/21 Unknown History mg-trimethoprim 160 mg tablet levothyroxine 50 mcg tablet 50 mcg PO SUSA 11/01/22 Un known History oxycodone-acetaminophen 5 mg-325 1 tab PO Q6H PRN PRN Pain 3 days 11/01/22 Unknown Rx mg tablet #12 TABLETS Allergy/AdvReac Type Severity Reaction Status Date / Time tramadol Allergy Other Verified 06/06/23 13:19 tuberculin, purified protein AdvReac Severe Other Verified 06/15/23 13:19 deriva Surgical History History of appendectomy H/O right mastectomy Social History household members: none Smoking Status: Never smoker substance use type: does not use ROS ROS ED ROS Narrative Unable to obtain at this time due to the patient's confusion. Review of Systems ROS Unobtainable: due to mental status EXAM Physical Exam Narrative Exam Narrative: 84-year-old female sitting upright in bed. Vital signs currently are stable and afebrile. She is tachycardic at 114. Low blood pressure 101/63. On 4 L of oxy gen she is 95%. She is not hypoxic on oxygen. H EENT exam she will open her eyes. Pupils round reactive light. Mildly dry mucous membranes. There is no signs of trauma to her face or scalp. Nontender no hematoma. Neck nontender no lymphadenopathy. No meningismus. Lungs clear to auscultation bilaterally. Heart tachycardic no murmur rate about 115. Chest wall and ribs are nontender. Abdomen soft nontender. Nondistended. Moving all 4 extremities. Nontender no deformity. Neurologically she will open her eyes. She answers very limited questions. She seems confused. Follow only limited commands. Const Vital Signs: 04/01/25 12:16 04/01/25 12:24 04/01/25 12:28 Temperature 98.3 F 98.3 F Temperature Source Oral Oral Pulse Rate 114 H 114 H Respiratory Rate 25 H 25 H Respiratory Effort Normal Non-Labored Respiratory Pattern Tachypnea Blood Pressure 101/63 101/63 Blood Pressure Mean 75 75 Pulse Ox 95 95 Oxygen Delivery Method Nasal Cannula Nasal Cannula Oxygen Flow Rate (L/min) 4 04/01/25 12:29 04/01/25 13:15 04/01/25 13:19 Temperature 98.3 F 98.3 F Temperature Source Oral Oral Pulse Rate 114 H 106 H Respiratory Rate 25 H 30 H Respiratory Effort Respiratory Pattern Blood Pressure 101/63 84/55 L Blood Pressure Mean 75 64 Pulse Ox 95 93 Oxygen Delivery Method Room Air Room Air Oxygen Flow Rate (L/min) 04/01/25 14:00 Temperature Temperature Source Pulse Rate 114 H Respiratory Rate Respiratory Effort Respiratory Pattern Blood Pressure 73/59 L Blood Pressure Mean 63 Pulse Ox 94 Oxygen Delivery Method Room Air Oxygen Flow Rate (L/min) Positive well nourished and well developed; Negative for cachectic, contractures or unkempt General Appearance ED: well developed; Negative for unkempt, cachectic, cont ractures, cyanotic, diaphoretic, NAD or pallor Nutritional Appearance: Negative for cachectic HEENT Reports dry mucous membranes Mouth ED: Yes dry mucous membranes Mouth: dry mucous membranes Eyes PERRL and EOMs intact bilaterally Neck no lymphadenopathy, supple and no JVD General: Negative for tenderness Chest Wall inspection of chest normal and palpation of chest normal Resp normal respiratory effort and clear to auscultation bilaterally Cardio regular rhythm, S1 normal heart sound, S2 normal heart sound and no murmurs; Negative for regular rate Rate: tachycardic GI normal to inspection, nondistended, normoactive bowel sounds, non-tender, non- distended and no masses Auscultation: normoactive bowel sounds Palpation: soft; Negative for tender, guarding or rebound tenderness present Back/Spine no CVA tenderness General Back: Negative for CVA tenderness Cervical Spine: Negative for cervical spine tenderness Thoracic Spine / Upper Back: Negative for thoracic spinal tenderness or paraspinal muscle tenderness Lumbar Spine / Lower Back: Negative for lumbar spinal tenderness Extremity normal to inspection General Extremety ED: Negative for edema or tenderness General Extremity: Negative for edema Neuro No oriented x3 Neuro Narrative: Confused. Will open her eyes. Follows limited commands. Answers very limited questions. Sensorium / Orientation: orientation impaired and lethargic Motor Exam: general weakness; Negative for strength 5/5 throughout Psych mental status grossly normal Appearance: Negative for unkempt Mood & Affect: Negative for depressed, anxious or tearful Skin no rashes or lesions noted and no wounds General Skin Exam: Negative for jaundice or pallor Lesions: No lesion noted Rashes: No rashes noted Trauma: Negative for abrasion Wounds: Negative for wounds noted MDM MDM MDM Narrative Medical decision making narrative: 84-year-old female decreased mental status, confusion, limited informant appears dehydrated. IV fluids screening labs. Differential would include she has a history of metastatic cancer brain mets. Cerebral edema. Dehydration. Infection versus other etiologies. Repeat exam with daughters present I spoke with her. Patient I suspect that is UTI/urosepsis. She be started on IV Rocephin. Blood and urine cultures to be obtained. She will be written for 2 L of normal saline. She is actively receiving the first. Make sure she has 2 good periphe ral IVs. History & Record Review Discussion w/independent historian: Patient Additional record(s) reviewed:: Prior inpatient record, Prior outpatient record, Prior ED visit and Prior labs Lab Data Attestation: I reviewed the patient's lab results. Lab results narrative: CBC shows a white count 17.2. H&H 13.9 and 41. Platelets 160. UA shows yellow turbid urine. 250 occult blood. Negative nitrites. No red cells. Greater than 100 white cells. No bacteria. Will be treated as a UTI. Culture sent. Chemistry shows sodium 139. Gap 17. BUN and creatinine of 22 and 1.36. Glucose 116. Liver enzymes are normal. Lactic acid elevated 4.4. Blood and urine cultures have been obtained. Labs: Laboratory Results - last 24 hr 04/01/25 04/01/25 04/01/25 12:01 12:55 13:10 WBC 17.2 H RBC 4.49 Hgb 13.9 Hct 41.2 MCV 91.8 MCH 31.0 MCHC 33.7 RDW Std Deviation 44.3 H RDW Coeff of Tiffany 13.2 Plt Count 160 MPV 12.2 H Immature Gran % (Auto) 0.500 Neut % (Auto) 90.0 H Lymph % (Auto) 8.4 L [place] % (Auto) 0.5 Eos % (Auto) 0.1 Baso % (Auto) 0.5 Absolute Neuts (auto) 15.5 H Absolute Lymphs (auto) 1.44 Nucleated RBC % 0 Sodium 139 Potassium 4.1 Chloride 105 Carbon Dioxide 18.1 L Anion Gap 17 H BUN 22 H Creatinine 1.36 H Estim Creat Clear Calc 32.02 L Est GFR (MDRD) Non-Af 39 L BUN/Creatinine Ratio 15.8 Glucose 116 H Lactic Acid 4.4 H* Calcium 9.0 Total Bilirubin 1.02 AST 40 H ALT 18 Alkaline Phosphatase 66 Total Protein 6.7 Albumin 3.5 Globulin 3.2 Albumin/Globulin Ratio 1.1 Urine Color Yellow Urine Clarity Turbid Urine pH 7.0 Ur Specific [place] 1.010 Urine Protein TNP Urine Glucose (UA) Normal Urine Ketones Negative Urine Occult Blood 250 H Urine Nitrite Negative Urine Bilirubin Negative Urine Urobilinogen Normal Ur Leukocyte Esterase 500 H Urine RBC 0 SEEN Urine WBC >100 SEEN Ur Squamous Epith Cells 0 SEEN Urine Bacteria 0 SEEN Urine Mucus 0 SEEN POC Glucose 113 H Radiography Chest X-Ray - ED: 1 View, Read by ED Physician, Heart, Lungs, Mediastinum, Bony Structures, No Acute Disease and Chronic Changes Diagnostic Testing: Clinical Impression(s) from Imaging Studies Brain CT 04/01/25 12:28 IMPRESSION: No acute intracranial finding. Reading Location: [facility] Chest X-Ray 04/01/25 13:25 IMPRESSION: 1. Slight increased interstitial opacities, which may represent acute pneumonitis/pneumonia on chronic interstitial lung disease. 2. Probable trace pleural effusions. Reading Location: [facility] Chest x-ray, portable, single view, interpreted by myself shows chronic interstitial lung findings. No acute pneumonia. Suspect left pleural effusion. Similar to her prior chest x-ray from 2022. Rhythm Strip Rhythm Strip: Sinus Tach Rate: 112 Ectopy: None EKG Initial EKG: Attestation: I personally reviewed and interpreted this EKG as follows: Interpretation: No Acute Injury Pattern and Sinus Tachycardia Comments: Sinus tachycardia rate of 112 no acute signs of [place] or ischemia. Critical Care Time Critical Care Time: Yes Critical care time (excluding procedures): 30-74 minutes, Including time spent:, Discussing w/Patient &/or Family/Blind Teacher, Discussing w/Consultants, Arranging Admission or Transfer, Performing Direct Patient Care at Bedside and - (36 minutes.) Discharge Plan Dx/Rx/DC Orders Clinical Impression: Unresponsive, Acute UTI, Sepsis, Acute hypotension, History of breast cancer, Leukocytosis Disposition Disposition: [facility] Care [facility]
[2025-04-01 13:14] LABS: Bedside Glucose 113 mg/dL (74-106)
[2025-04-01] MEDS: 0.9% Normal Saline (1000mL) 1,000 ML 1000 ML IV (13:18)
[2025-04-01 13:19] LABS: Bacteria 0 SEEN /hpf (None Seen); Mucous, Urine 0 SEEN /hpf (<or=2+); Red Blood Cells-Urine 0 SEEN /hpf (0-5); Squamous Epithelial Cells - UA 0 SEEN /hpf (5-10)
[2025-04-01 13:21] LABS: Color, Urine Yellow (Yellow); Glucose, Dipstick Normal (Normal); Ketone-Dipstick Negative (Negative); Leukocyte Esterase-Dipstick 500 /ul (Negative); Nitrite-Dipstick Negative (Negative); Occult Blood-Urine 250 /ul (Negative); Urine Bilirubin Dipstick Negative (Negative); Urine Clarity Turbid (Clear); Urine Urobilinogen Normal (Normal)
[2025-04-01 13:22] LABS: Absolute Lymphocyte Count 1.44 X10^3/uL (0.83-4.51); Absolute Neutrophil Count 15.5 X10^3/uL (2.0-7.7); Basophil# 0.09 X10^3/uL; Basophil% 0.5 % (0-1); Eosinophil# 0.01 X10^3/uL; Eosinophils% 0.1 % (0-5); Hematocrit 41.2 % (37-47); Hemoglobin 13.9 g/dL (12.0-15.0); Lymphocyte # 1.44 X10^3/ul (0.83-4.51); Lymphocyte % 8.4 % (19-41); Mean Corp Hgb Conc 33.7 g/dL (32-36); Mean Corpuscular Volume 91.8 fL (81-99); Mean Platelet Vol. 12.2 fl (6.2-12.0); Monocyte# 0.08 X10^3/uL; Monocyte% 0.5 % (0-10); NRBC Flagged by Analyzer 0 % (0-5); Neutrophil # 15.51 X10^3/uL (2.7-7.7); Platelet Count 160 K/mm3 (150-450); RBC Distribution Width CV 13.2 % (11.6-14.6); RBC Distribution Width SD 44.3 fl (35.1-43.9); Red Blood Count 4.49 M/mm3 (4.2-5.4); White Blood Count 17.2 K/mm3 (4.4-11.0)
--- NOTE | 2025-04-01 13:25 | RAD_ITS ---
PROCEDURE: CHEST 1 VIEW (PORTABLE) 04/01/2025 REASON FOR EXAM: ALOC TECHNIQUE: Frontal view of the chest. COMPARISON: Chest radiograph 06/06/2023 FINDINGS: Hardware: Unchanged Surgical clips within the right axilla. Heart: Cardiac and mediastinal contours are stable, with mild cardiomegaly. Lungs: Slight increased interstitial opacities. Trace pleural effusions. No pneumothorax. Bones: Degenerative changes are identified within the thoracic spine. Arthrosis of the bilateral glenohumeral joints. Stable right lateral rib fractures. RAD/Chest 1 View (Portable) IMPRESSION: 1. Slight increased interstitial opacities, which may represent acute pneumonit is/pneumonia on chronic interstitial lung disease. 2. Probable trace pleural effusions. Reading Location: [id number]
[2025-04-01 13:28] LABS: White Blood Cells >100 SEEN /hpf (0-5)
[2025-04-01 13:52] LABS: ALB/GLOB Ratio 1.1 RATIO (0.9-2.4); AST(SGOT) 40 U/L (<=31); Alanine Aminotransfer ALT/SGPT 18 U/L (<=34); Albumin, Serum 3.5 g/dL (3.4-4.8); Alkaline Phosphatase 66 U/L (35-104); Anion Gap 17 (5-15); BUN 22 mg/dL (4-19); BUN/Creat Ratio 15.8 RATIO (10-20); Carbon Dioxide 18.1 mmol/L (21.0-32.0); Chloride 105 mmol/L (98-108); Creatinine, Serum 1.36 mg/dL (0.70-1.20); EST Glomerular Filtration Rate 39 (>60); Estimated Creatinine Clearance 32.02 ml/min (50-250); Globulin 3.2 g/dL (2.2-4.2); Glucose 116 mg/dL (70-99); Potassium 4.1 mmol/L (3.3-5.1); Protein, Total 6.7 g/dL (5.9-8.4); Sodium Level 139 mmol/L (133-145); Total Bilirubin 1.02 mg/dL (0.00-1.30)
[2025-04-01 13:53] LABS: Lactic Acid 4.4 mmol/L (0.0-2.0)
[2025-04-01 14:16] LABS: Protein, Urine (Random) 73.6 mg/dL (0.0-12.0)
--- NOTE | 2025-04-01 14:18 | HP.PCM.HOS_ITS ---
HPI - General General Date of Admission: 04/01/25 Date of Service: 04/01/25 Chief Complaint: Was found unresponsive in the morning by the daughter. HPI Narrative MYCHAL DODD, is a 84 F with multiple comorbidities was brought by EMS when daughter found her unresponsive. As per EMS, she only opened her eyes but could not speak and gradually started becoming more responsive. She was also having headache as per the EMS and daughter which has resolved now. EMS vitals temperature 99.2 ?F. BP was low 77/46, RR 14, heart rate 122 Currently she denies chest pain pressure tightness, shortness of breath, nausea or vomiting. As per daughter, she complained of left upper quadrant and left upper back pain/renal angle pain yesterday. Usually she is on 100 mg gabapentin once daily but she gave 1 more as she was instructed by the physician. Currently she denies abdominal pain, acute urine tract symptoms including burning micturition. As per daughter she had UTI in the past without any complaint. In ED, she was hypotensive, tachycardic, BP 84/55, heart rate 114/min but gradually it is getting better. Culture sent IV fluid as per sepsis protocol and patient being admitted in ICU. [facility] Medical History Anxiety Hypothyroidism GERD (gastroesophageal reflux disease) Interstitial lung disease Hypertension Breast cancer metastasized to bone Home Medications ?Medication ?Instructions ?Recorded ?Last Taken ?Type omeprazole 20 mg capsule,delayed 20 mg PO DAILY HEARTB URN 01/19/14 Unknown History release cetirizine 10 mg tablet 10 mg PO DAILY ALLERGIES Unknown History ergocalciferol (vitamin D2) 1,250 50,000 unit PO VILLARREAL VILLARREAL PPLEMENT 04/14/21 03/25/25 History mcg (50,000 unit) capsule levothyroxine 75 mcg tablet 75 mcg PO MOTUWETH THYROID 04/14/21 Unknown History metoprolol succinate 50 mg 50 mg PO DAILY BLOOD PRESSU RE 04/14/21 Unknown History tablet,extended release 24 hr levothyroxine 50 mcg tablet 50 mcg PO SUFRSA THYROID 0 11/01/22 Unknown History acetaminophen 500 mg tablet 1,000 mg PO Q6H PRN pain 0 04/01/25 Unknown History albuterol sulfate 90 mcg/actuation 2 inh inhalation Q6 H PRN shortness 04/01/25 Unknown History aerosol inhaler (Ventolin HFA) of breath or wheezing exemestane 25 mg tablet 25 mg PO DAILY HORMONE 04/01 Unknown History gabapentin 100 mg capsule 100 mg PO DAILY NERVE PAIN 0 04/01/25 Unknown History ondansetron 4 mg disintegrating 4 mg PO Q6H PRN nausea and vomiting 04/01/25 Unknown History tablet potassium chloride 10 mEq 10 meq PO DAILY SUPPLEMENT 0 04/01/25 Unknown History tablet,extended release sacubitril 49 mg-valsartan 51 mg 1 tab PO BID BLOOD CA ESSURE 04/01/25 Unknown History tablet (Entresto) torsemide 20 mg tablet 10 mg PO DAILY WATER PILL Unknown History Allergy/AdvReac Type Severity Reaction Status Date / Time tramadol Allergy Other Verified 06/06/23 13:19 tuberculin, purified protein AdvReac Severe Other Verified 06/15/23 13:19 deriva Surgical History History of appendectomy H/O right mastectomy Social History household members: none Smoking Status: Never smoker substance use type: does not use ROS ROS Narrative Patient is still drowsy and lethargy and could not give full HPI and review of system. Therefore complete 14 ROS unobtainable. As per daughter, she has 50% of her heart pump function. Review of Systems ROS Unobtainable: due to encephalopathy Vital Signs Vital Signs Vital Signs: 04/01/25 12:16 04/01/25 12:24 04/01/25 12:28 Temperature 98.3 F 98.3 F Temperature Source Oral Oral Pulse Rate 114 H 114 H Respiratory Rate 25 H 25 H Respiratory Effort Normal Non-Labored Respiratory Pattern Tachypnea Blood Pressure 101/63 101/63 Blood Pressure Mean 75 75 Pulse Ox 95 95 Oxygen Delivery Method Nasal Cannula Nasal Cannula Oxygen Flow Rate (L/min) 4 04/01/25 12:29 04/01/25 13:15 04/01/25 13:19 Temperature 98.3 F 98.3 F Temperature Source Oral Oral Pulse Rate 114 H 106 H Respiratory Rate 25 H 30 H Respiratory Effort Respiratory Pattern Blood Pressure 101/63 84/55 L Blood Pressure Mean 75 64 Pulse Ox 95 93 Oxygen Delivery Method Room Air Room Air Oxygen Flow Rate (L/min) 04/01/25 14:00 Temperature Temperature Source Pulse Rate 114 H Respiratory Rate Respiratory Effort Respiratory Pattern Blood Pressure 73/59 L Blood Pressure Mean 63 Pulse Ox 94 Oxygen Delivery Method Room Air Oxygen Flow Rate (L/min) Weight Weight: 183 lb 6.793 oz Body Mass Index (BMI) 32.5 Physical Exam Narrative General: Drowsy, lethargy opening up eyes. HEENT: Atraumatic, PERRLA, EOMI, Normocephalic. Oral: Oral mucosa dry no Gingival or Mucosal Lesions/ Ulcerations Neck: Supple, No JVD, Negative Carotid Bruits Chest wall/Lungs: Air entry diminished in bilateral lung bases. No crepitation/rhonchi Cardiovascular: Sinus tachycardia, Normal S1,S2, No M/G/R Abdomen: Bowel Sounds Present, Soft, no tenderness on anterior abdomen. Nondistended : No dysuria. Mild tenderness bilateral renal angle left worse than right. No renal angle tenderness. No suprapubic tenderness. Extremities: No edema, Capillary Refill Less than 3 Seconds Skin: No rashes, No breakdown Musculoskeletal: No Tenderness to Palpation of Joints or Extremities Neurological: Lethargic. Low pitch speech. Psych/Mental Status: flat affect Results Lab / Micro Data 04/01/25 12:01 04/01/25 12:01 Labs: Laboratory Results - last 24 hr 04/01/25 12:01: WBC 17.2 H, RBC 4.49, Hgb 13.9, Hct 41.2, MCV 91.8, MCH 31.0, MCHC 33.7, RDW Std Deviation 44.3 H, RDW Coeff of Tiffany 13.2, Plt Count 160, MPV 12.2 H, Immature Gran % (Auto) 0.500, Neut % (Auto) 90.0 H, Lymph % (Auto) 8.4 L , [place] % (Auto) 0.5, Eos % (Auto) 0.1, Baso % (Auto) 0.5, Absolute Neuts (auto) 15.5 H, Absolute Lymphs (auto) 1.44, Nucleated RBC % 0, Sodium 139, Potassium 4.1, Chloride 105, Carbon Dioxide 18.1 L, Anion Gap 17 H, BUN 22 H, Creatinine 1.36 H, Estim Creat Clear Calc 32.02 L, Est GFR (MDRD) Non-Af 39 L, BUN/Creatinine Ratio 15.8, Glucose 116 H, Calcium 9.0, Total Bilirubin 1.02, AST 40 H, ALT 18, Alkaline Phosphatase 66, Total Protein 6.7, Albumin 3.5, Globulin 3.2, Albumin/Globulin Ratio 1.1 04/01/25 12:55: POC Glucose 113 H 04/01/25 13:10: Lactic Acid 4.4 H*, Urine Color Yellow, Urine Clarity Turbid, Urine pH 7.0, Ur Specific [place] 1.010, Urine Protein TNP, Urine Glucose (UA) Normal, Urine Ketones Negative, Urine Occult Blood 250 H, Urine Nitrite Negative, Urine Bilirubin Negative, Urine Urobilinogen Normal, Ur Leukocyte Esterase 500 H, Urine RBC 0 SEEN, Urine WBC >100 SEEN, Ur Squamous Epith Cells 0 SEEN, Urine Bacteria 0 SEEN, Urine Mucus 0 SEEN, U Random Total Protein 73.6 H Micro: Microbiology 04/01/25 13:10 Mucosa - Nose SARS-CoV-2, Influenza & RSV (PCR) - Final Rhythm Strip Rhythm Strip: Sinus Tach Rate: 112 Ectopy: None Imaging Radiology Impression Brain CT 04/01/25 12:28 IMPRESSION: No acute intracranial finding. Reading Location: [facility] Chest X-Ray 04/01/25 13:25 IMPRESSION: 1. Slight increased interstitial opacities, which may represent acute pneumonitis/pneumonia on chronic interstitial lung disease. 2. Probable trace pleural effusions. Reading Location: [facility] Assessment & Plan Assessment/Plan (1) Unresponsive: (2) Sepsis: (3) Acute hypotension: PLAN: Plan This 84-year-old female admitted for unresponsiveness with anterior and posterior abdominal pain and concern for sepsis/UTI 1. Possible sepsis due to UTI/pyelonephritis: Patient is being admitted in the ICU. Concern of sepsis with clinical indicators of tachycardia, hypotension, tachypnea due to possible UTI/pyelonephritis/pneumonia with acute sepsis-related organ dysfunction as evidenced by hypotension, lactic acidosis and change in mental status/encephalopathy. UA positive of LE, WBC more than 100 cells, nitrite negative. CT abdomen/pelvis without contrast is ordered to rule out pyelonephritis/UTI. IV contrast avoided as estimated creatinine clearance 32 mL/min to prevent DONTA. Chest x-ray individually reviewed and shows increased interstitial opacity more on the left lung base with possibility for acute pneumonitis/pneumonia on chronic interstitial lung disease. Triple PCR for SARS-CoV-2, flu and RSV are negative. Respiratory panel, blood culture urine culture and panculture. Started on broad-spectrum antibiotic IV vancomycin and Zosyn. 2. Acute encephalopathy/unresponsiveness probably due to sepsis/medication: Treat underlying disorder. CT brain does not show acute intracranial abnormality. Hold gabapentin, venlafaxine and Percoc 3. Chronic heart failure, exact type, classification and etiology unclear: As per daughter, she has 50% of her heart pump function. Twelve-lead EKG shows sinus tachycardia 112 bpm, QTc 450 ms. Previous EKG in June 2023 sinus rhythm with occasional PVC, prolonged QT, QTc 478. Patient on metoprolol succinate, furosemide, benazepril, HCTZ. Hold for now. Patient denies any acute symptoms of ACS. High sensitive troponins ordered. 2D echo tomorrow a.m. 4. Hypothyroidism: TSH and free T4 ordered. Currently patient n.p.o. but when more awake, oral can be allowed with resumption of oral thyroid medications 5. Interstitial lung disease: No hypoxia as per recent vitals 5. Severe breast with metastasis to bone, right mastectomy: No acute issues. Continue outpatient follow-up 6. Hypertension: Currently patient blood pressure is low therefore hold antihypertensive medications for 7. GERD, anxiety: PPI changed to IV pantoprazole. DVT prophylaxis: High risk: Lovenox 40 mg subcu daily Living will/advanced directive/end of life care: Patient does have living will or advanced directive. Her daughter present in ED is power of insulation board back tender for health. After discussion of benefits/risks procedures involved with full code, DNR CC arrest and DNR CC, the patient opted for DNR CC arrest with no intubation but she is okay with vasopressors through the peripheral IV line Patient doesn't want artificial life support including intubation, tube feed, ventilator and/chest compression, central venous catheter, and DC shock if needed but okay with vasopressors through peripheral IV line if needed. Total time spent in [id number] encounter in discussion of advanced directive 17 minutes. Microbiology Past 72 Hours 04/01/25 13:10 Mucosa - Nose SARS-CoV-2, Influenza & RSV (PCR) - Final Laboratory Results 04/01/25 12:01: WBC 17.2 H, RBC 4.49, Hgb 13.9, Hct 41.2, MCV 91.8, MCH 31.0, MCHC 33.7, RDW Std Deviation 44.3 H, RDW Coeff of Tiffany 13.2, Plt Count 160, MPV 12.2 H, Immature Gran % (Auto) 0.500, Neut % (Auto) 90.0 H, Lymph % (Auto) 8.4 L , [place] % (Auto) 0.5, Eos % (Auto) 0.1, Baso % (Auto) 0.5, Absolute Neuts (auto) 15.5 H, Absolute Lymphs (auto) 1.44, Nucleated RBC % 0, Sodium 139, Potassium 4.1, Chloride 105, Carbon Dioxide 18.1 L, Anion Gap 17 H, BUN 22 H, Creatinine 1.36 H, Estim Creat Clear Calc 32.02 L, Est GFR (MDRD) Non- Af 39 L, BUN/Creatinine Ratio 15.8, Glucose 116 H, Calcium 9.0, Total Bilirubin 1.02, AST 40 H, ALT 18, Alkaline Phosphatase 66, Total Protein 6.7, Albumin 3.5, Globulin 3.2, Albumin/Globulin Ratio 1.1 04/01/25 12:55: POC Glucose 113 H 04/01/25 13:10: Lactic Acid 4.4 H*, Urine Color Yellow, Urine Clarity Turbid, Urine pH 7.0, Ur Specific [place] 1.010, Urine Protein TNP, Urine Glucose (UA) Normal, Urine Ketones Negative, Urine Occult Blood 250 H, Urine Nitrite Negative, Urine Bilirubin Negative, Urine Urobilinogen Normal, Ur Leukocyte Esterase 500 H, Urine RBC 0 SEEN, Urine WBC >100 SEEN, Ur Squamous Epith Cells 0 SEEN, Urine Bacteria 0 SEEN, Urine Mucus 0 SEEN, U Random Total Protein 73.6 H Clinical Impression(s) from Imaging Studies Brain CT 04/01/25 12:28 IMPRESSION: No acute intracranial finding. Reading Location: [id number] Chest X-Ray 04/01/25 13:25 IMPRESSION: 1. Slight increased interstitial opacities, which may represent acute pneumonitis/pneumonia on chronic interstitial lung disease. 2. Probable trace pleural effusions. Reading Location: [id number] Charges/Coding Visit Charges Inpatient E&M: 28829 Init Hosp L3 Procedures Hospitalists Procedures: 37198 Advncd Care Plan 30 Min
[2025-04-01] MEDS: Ceftriaxone 1 GM/50 ML BAG IV (14:22)
[2025-04-01] MEDS: 0.9% Normal Saline (1000mL) 1,000 ML 999 ML IV ×3 (14:22→18:10)
--- NOTE | 2025-04-01 14:48 | CT_ITS ---
PROCEDURE: ABDOMEN/PELVIS WITHOUT CONT 04/01/2025 REASON FOR EXAM: HYPOTENSION, SEPSIS TECHNIQUE: Abdomen and pelvis CT without intravenous contrast. Noncontrast technique limits evaluation of the abdominal and pelvic viscera. Coronal and Sagittal reconstruction series were provided. One or more dose reduction techniques were used (e.g., Automated exposure control, adjustment of the mA and/or kV according to patient size, use of iterative reconstruction technique). PATIENT PREPARATION: Per protocol COMPARISON: CT pelvis 10/31/2022 FINDINGS: Lung bases: Bibasilar reticulations. Cardiomegaly with coronary artery calcifications. Small hiatal hernia. Liver: Normal size. No obvious mass. Gallbladder: Hydropic, without radiodense stones. No wall thickening or pericholecystic fluid. Spleen: Normal size. Pancreas: Normal size. No surrounding inflammation. Adrenals: There is suggestion of a left adrenal nodule measuring 1.7 cm and 10 Hounsfield units (series 2, image 54). Kidneys: Bilateral perinephric stranding, dwkx-ocihbss-evgp-right. There is a stone in the left distal ureter measuring 4 mm and resulting in hjqi-no-jcxhyclu upstream hydroureteronephrosis. No right-sided hydronephrosis or stone. Simple cyst in the right kidney. Bladder: Urinary catheter balloon inflated within the lumen. Punctate focus of intraluminal air, likely related to instrumentation. Reproductive Organs: Unremarkable. Bowel: No obstruction or inflammation. Colonic diverticulosis. Radiodensities in the cecum are likely ingested contents (pills). Appendix is not well visualized and may be surgically absent. Lymph nodes: No significant lymphadenopathy. Vasculature: Moderate diffuse atherosclerotic calcifications are noted. Bones: Degenerative changes of the spine. Grade 1 anterolisthesis of L4 on L5. Postoperative changes of the left proximal femur are partially imaged. Soft tissues: Surgical clips in the right chest wall. Fat containing umbilical hernia. CT/Abdomen/Pelvis without Cont IMPRESSION: 1. Stone in the left distal ureter measuring 4 mm resulting in pxqn-rh-vodrlte e upstream left-sided hydroureteronephrosis. 2. Left adrenal nodule measuring 1.7 cm, likely a benign adenoma. 3. Colonic diverticulosis without evidence of acute diverticulitis. 4. Hydropic gallbladder without radiodense stones or additional findings of ac maya cholecystitis. 5. Bibasilar reticulations in the lungs. 6. Cardiomegaly. Reading Location: [id number]
[2025-04-01] MEDS: Vancomycin HCl 2,000 MG in 0.9% Normal Saline (500mL Bag) 500 ML 250 MG IV (15:02)
[2025-04-01] MEDS: Piperacil/Tazobactam 3.375 GM in 0.9% Normal Saline (50mL MB+) 50 ML IV ×2 (15:02→21:45)
[2025-04-01 15:03] LABS: International Normalized Ratio 1.4; Prothrombin Time (Protime)PT. 17.2 SECONDS (11.7-14.9)
[2025-04-01 15:04] LABS: Partial Thromboplast Time 29.7 Seconds (24.1-36.2)
--- NOTE | 2025-04-01 15:15 | PCM.RX.CS ---
Consult Antibiotic Management Pharmacy has been consulted to manage selected antibiotic: Vancomycin Type of Intervention Type of Consult: New start Suspected Infection Suspected Infection: Sepsis Prior Doses of Antibiotics Prior Doses of Antibiotics Received/Current Regimen: Vancomycin 2000 mg IV x 1 given 04/01/25 @ 1502 Labs Labs: Sodium 139 mmol/L (133-145) 04/01/25 12:01 Potassium 4.1 mmol/L (3.3-5.1) 04/01/25 12:01 Chloride 105 mmol/L (98-108) 04/01/25 12:01 Carbon Dioxide 18.1 mmol/L (21.0-32.0) L 04/01/25 12:01 Anion Gap 17 (5-15) H 04/01/25 12:01 BUN 22 mg/dL (4-19) H 04/01/25 12:01 Creatinine 1.36 mg/dL (0.70-1.20) H 04/01/25 12:01 Est GFR (MDRD) Non-Af 39 (>60) L 04/01/25 12:01 BUN/Creatinine Ratio 15.8 RATIO (10-20) 04/01/25 12:01 Glucose 116 mg/dL (70-99) H 04/01/25 12:01 Microbiology Microbiology: Microbiology 04/01/25 13:10 Mucosa - Nose SARS-CoV-2, Influenza & RSV (PCR) - Final Dosing Weight Weight used for dosin lb 15.739 oz Estimated Creatinine Clearance Estimated Creatinine Clearance: ~ 32 Goal Trough Goal Trough: 15-20 mcg/mL Pharmacy Plan for Drug Dosing Pharmacy Plan for Drug Dosing: Vancomycin 2000 mg IV x 1 followed by 1250 mg Q24H Pharmacy Service will continue to monitor and adjust dosing as required. Follow-Up Labs Follow-Up Labs: Trough: Vancomycin Date/Time Labs Ordered Labs to be done on [date and time ordered]: 04/03/25 @ 1431
--- NOTE | 2025-04-01 15:20 | SEPSISATNOTE ---
Sepsis Attestation Sepsis Alert: Yes Sepsis Attestation: Agree w/Sepsis Date exam was performed: 04/01/25 Time exam was performed: 15:21 Possible Source of Sepsis: Pulmonary and Genitourinary Sepsis Organ Dysfunction Criteria Present: SBP < 90 mmHg or MAP < 65 mmHg, Lactic Acid > 2 mmol/L and New/Unexplained change in mental status Fluid Resuscitation Fluid resuscitation indicated?: Yes Fluid Resuscitation ordered: 30 ml/kg fluid bolus ordered Amount of fluid ordered: 2,500 Sepsis Note Date exam was performed: 04/01/25 Time exam was performed: 17:15 Sepsis Attestation: Sepsis re-evaluation was performed Response to fluids: Fluid responsive hypotension
[2025-04-01 15:21] LABS: CPK Total, Creatine Kinase 460 U/L (24-195)
--- NOTE | 2025-04-01 16:35 | CASEMGMT ---
Social Work Date of referral: 04/01/2025 Referred by: Stroke Alert roundhouse worker responded to stroke alert. Patient had already been removed from the room for testing; no family or friends were present and social worker health services left after a while. roundhouse worker will try and return at a later time if possible, as social worker health services was called back to the ED. Sofy Heller, FLUTE GR[employer]ER, [employer]OD ASSEMBLER
--- NOTE | 2025-04-01 16:38 | CON.PCM.CC_ITS ---
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 Per daughter at bedside pt was in usual state of health yesterday except for some mild increase in her chronic pain, and she gave her an extra dose of gabapentin as recommended by her physician. Then this AM daughter found her to be minimally responsive and having severe GUZMAN and so called EMS. On arrival here she was noted to have low grade fever, hypotension, and UA concerning for recurrent UTI. She was started on IVF and empiric abx and became slightly more responsive. However she was then also noted to have some mild L sided weakness and dysarthria prompting code stroke to be called, per neuro eval no TNK given d/t last well known too long ago. CT head without acute pathology. Her BP is improved now though still marginal, not requiring any pressors. Per daughter she has developed AMS in past with UTIs as well though not this severe. Prior to today she was not having any fevers/chills, chest pain, dyspnea, abd pain vomiting, diarrhea, dysuria, or any other obvious new sx. Of note she was also hospitalized at OSH abt 1 month ago for PNA. She takes hormone therapy for her breast Ca currently but no other recent therapies. ROS: As per HPI, unable to obtain otherwise d/t pt [facility] Medical History Anxiety Hypothyroidism GERD (gastroesophageal reflux disease) Interstitial lung disease Hypertension Breast cancer metastasized to bone Home Medications ?Medication ?Instructions ?Recorded ?Last Taken ?Type omeprazole 20 mg capsule,delayed 20 mg PO DAILY HEARTB URN 01/19/14 Unknown History release cetirizine 10 mg tablet 10 mg PO DAILY ALLERGIES Unknown History ergocalciferol (vitamin D2) 1,250 50,000 unit PO VILLARREAL VILLARREAL PPLEMENT 04/14/21 03/25/25 History mcg (50,000 unit) capsule levothyroxine 75 mcg tablet 75 mcg PO MOTUWETH THYROID 04/14/21 Unknown History metoprolol succinate 50 mg 50 mg PO DAILY BLOOD PRESSU RE 04/14/21 Unknown History tablet,extended release 24 hr levothyroxine 50 mcg tablet 50 mcg PO SUFRSA THYROID 0 11/01/22 Unknown History acetaminophen 500 mg tablet 1,000 mg PO Q6H PRN pain 0 04/01/25 Unknown History albuterol sulfate 90 mcg/actuation 2 inh inhalation Q6 H PRN shortness 04/01/25 Unknown History aerosol inhaler (Ventolin HFA) of breath or wheezing exemestane 25 mg tablet 25 mg PO DAILY HORMONE 04/01 Unknown History gabapentin 100 mg capsule 100 mg PO DAILY NERVE PAIN 0 04/01/25 Unknown History ondansetron 4 mg disintegrating 4 mg PO Q6H PRN nausea and vomiting 04/01/25 Unknown History tablet potassium chloride 10 mEq 10 meq PO DAILY SUPPLEMENT 0 04/01/25 Unknown History tablet,extended release sacubitril 49 mg-valsartan 51 mg 1 tab PO BID BLOOD IN ESSURE 04/01/25 Unknown History tablet (Entresto) torsemide 20 mg tablet 10 mg PO DAILY WATER PILL Unknown History Allergy/AdvReac Type Severity Reaction Status Date / Time tramadol Allergy Other Verified 06/06/23 13:19 tuberculin, purified protein AdvReac Severe Other Verified 06/15/23 13:19 deriva Surgical History History of appendectomy H/O right mastectomy Social History household members: none Smoking Status: Never smoker substance use type: does not use Objective Data Objective Data Vital Signs: Vital Signs Last response 3 Temperature 37.1 C 04/01/25 14:33 Temperature Source Oral 04/01/25 13:19 Pulse Rate 94 04/01/25 15:00 Respiratory Rate 26 H 04/01/25 15:00 Respiratory Effort Normal, Non-Labored 04/01/25 12:28 Respiratory Pattern Tachypnea 04/01/25 12:28 Blood Pressure 105/60 04/01/25 15:00 Blood Pressure Mean 75 04/01/25 15:00 Pulse Ox 95 04/01/25 15:00 Oxygen Delivery Method Room Air 04/01/25 15:00 Oxygen Flow Rate (L/min) 4 04/01/25 12:16 Current Meds Ordered / Administered: Current meds ordered / Administered 3 Generic Name Dose Route Start Last Admin Trade Name Freq PRN Reason Stop Dose Admin Enoxaparin Sodium 40 mg 04/01/25 15:20 Enoxaparin 40 Mg/0.4 Ml Syringe SC Q24 SHANDA Piperacillin Sod/Tazobactam 50 mls @ 12.5 mls/hr 04/01/25 22:00 Sod 3.375 gm/ Sodium Chloride IV Q8 SHANDA Vancomycin IV-PHARMACY TO DOSE 500 mls @ 250 mls/hr 04/01/25 14:25 1 each/ Sodium Chloride IV PRN PRN RX TO DOSE Protocol Vancomycin HCl 2,000 mg/ 540 mls @ 250 mls/hr 04/01/25 15:00 04/01/25 15:02 Sodium Chloride IV 04/01/25 17:09 250 mls/hr X1 ONE Administration Piperacillin Sod/Tazobactam 50 mls @ 12.5 mls/hr 04/01/25 14:45 04/01/25 15:02 Sod 3.375 gm/ Sodium Chloride IV 04/01/25 18:44 12.5 mls/hr X1 ONE Administration Vancomycin HCl 1,250 mg/ 275 mls @ 167 mls/hr 04/02/25 15:00 Sodium Chloride IV Q24H [facility] Prochlorperazine Edisylate 5 mg 04/01/25 16:35 Prochlorperazine 10 Mg/2 Ml Vial IV Q4H PRN PRN Breakthrough Nausea/Vomiting Senna/Docusate Sodium 2 tablet 04/01/25 16:35 Senna/Docusate Sodium 1 Tablet PO BID PRN PRN Constipation Vancomycin Protocol 1 lab 04/03/25 13:30 Vancomycin Trough/Random Due MC 04/03/25 15:30 DAILY [facility] Lab / Micro Data 04/01/25 12:01 04/01/25 12:01 Labs: Laboratory Results - last 24 hr 04/01/25 12:01: WBC 17.2 H, RBC 4.49, Hgb 13.9, Hct 41.2, MCV 91.8, MCH 31.0, MCHC 33.7, RDW Std Deviation 44.3 H, RDW Coeff of Tiffany 13.2, Plt Count 160, MPV 12.2 H, Immature Gran % (Auto) 0.500, Neut % (Auto) 90.0 H, Lymph % (Auto) 8.4 L , [place] % (Auto) 0.5, Eos % (Auto) 0.1, Baso % (Auto) 0.5, Absolute Neuts (auto) 15.5 H, Absolute Lymphs (auto) 1.44, Nucleated RBC % 0, Sodium 139, Potassium 4.1, Chloride 105, Carbon Dioxide 18.1 L, Anion Gap 17 H, BUN 22 H, Creatinine 1.36 H, Estim Creat Clear Calc 32.02 L, Est GFR (MDRD) Non-Af 39 L, BUN/Creatinine Ratio 15.8, Glucose 116 H, Calcium 9.0, Total Bilirubin 1.02, AST 40 H, ALT 18, Alkaline Phosphatase 66, Total Creatine Kinase 460 H, Total Protein 6.7, Albumin 3.5, Globulin 3.2, Albumin/Globulin Ratio 1.1 04/01/25 12:55: POC Glucose 113 H 04/01/25 13:10: Lactic Acid 4.4 H*, Urine Color Yellow, Urine Clarity Turbid, Urine pH 7.0, Ur Specific Scott 1.010, Urine Protein TNP, Urine Glucose (UA) Normal, Urine Ketones Negative, Urine Occult Blood 250 H, Urine Nitrite Negative, Urine Bilirubin Negative, Urine Urobilinogen Normal, Ur Leukocyte Esterase 500 H, Urine RBC 0 SEEN, Urine WBC >100 SEEN, Ur Squamous Epith Cells 0 SEEN, Urine Bacteria 0 SEEN, Urine Mucus 0 SEEN, U Random Total Protein 73.6 H 04/01/25 14:40: PT 17.2 H, INR 1.4, APTT 29.7 Micro: Microbiology 04/01/25 13:10 Urine Catheter - Catheter Legionella Antigen - Final 04/01/25 13:10 Urine Catheter - Catheter Streptococcus pneumoniae Antigen (M - Final 04/01/25 13:10 Mucosa - Nose SARS-CoV-2, Influenza & RSV (PCR) - Final Rhythm Strip Rhythm Strip: Sinus Tach Rate: 112 Ectopy: None Imaging Radiology Impression Brain CT 04/01/25 12:28 IMPRESSION: No acute intracranial finding. Reading Location: [id number] Chest X-Ray 04/01/25 13:25 IMPRESSION: 1. Slight increased interstitial opacities, which may represent acute pneumonitis/pneumonia on chronic interstitial lung disease. 2. Probable trace pleural effusions. Reading Location: [id number] Assessment and Plan . Assessment and plan: Physical Exam: Gen - NAD, elderly, ill-appearing HEENT - MM dry. Sclera anicteric Resp - +crackles. Breathing nonlabored CV - RRR. No m/g/r Abd - Soft, NT, ND Ext - No c/c/e. Skin - No rashes? Neuro - Lethargic, will open eyes to stimulation and attempt to speak but very confused. Mild L sided weakness, dysarthria I have reviewed the pertinent vital sign, laboratory, and imaging data. ASSESSMENT: # Acute encephalopathy # Sepsis # UTI - h/o UTI in past as well # Possible PNA - recent hospitalization at OSH ~1 month ago for PNA per daughter # LESTER vs CKD - unclear recent baseline # AGMA # Lactic acidosis # CHF ? 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 On RA currently, protecting airway -Cont IVF. Marginal BP, monitor for need for pressors. s/p sepsis bolus -Empiric vanc/zosyn. f/u Cx. COVID/flu/RSV neg -Neuro checks. f/u CTA head/neck and MR brain. Per tele neuro consult no TNK was given since last well known time was last night before admit -Monitor lactate, Cr, UOP -Hold all pain medications until more awake FEN/GI: NPO Proph DVT/GI: Lovenox (switch to SQ heparin if worsening renal failure) Code status: DNR/DNI Updated daughter at bedside Critical Care Time: 60 mins The entirety of this encounter was done via telemedicine using both audio and video. Consent was unable to be obtained for the telemedicine encounter due to the patient's mental status.
--- NOTE | 2025-04-01 16:39 | CT_ITS ---
PROCEDURE: STROKE BRAIN/HEAD WITHOUT CONT 04/01/2025 REASON FOR EXAM: STROKE TECHNIQUE: Head CT without intravenous contrast. Coronal and Sagittal reconstruction series were provided. One or more dose reduction techniques were used (e.g., Automated exposure control, adjustment of the mA and/or kV according to patient size, use of iterative reconstruction technique. RADIATION DOSE SUMMARY: DLP: 561 mGycm COMPARISON: 04/01/2025 FINDINGS: There is no acute infarct, intracranial hemorrhage, or mass effect. There is no hydrocephalus or significant midline shift. Again seen is coarse calcification within the left cerebellar hemisphere. There is aayd-xv-nhyqxdgd chronic microvascular ischemic changes and lpgm-ir-jotskdss parenchymal volume loss. No acute, depressed calvarial fractures. No large scalp hematomas. Bilateral lens surgery. CT/STROKE Brain/Head without Cont IMPRESSION: No acute, large territorial infarction. Reading Location: [id number]
--- NOTE | 2025-04-01 16:39 | CT_ITS ---
PROCEDURE: STROKE CTA HEAD AND NECK W/CON 04/01/2025 REASON FOR EXAM: STROKE PROT TECHNIQUE: CTA imaging of the head and neck from the aortic arch to the skull vertex with intravenous contrast. Multiplanar and multisequence images were obtained. 3D post processing was performed One or more dose reduction techniques were used (e.g., Automated exposure control, adjustment of the mA and/or kV according to patient size, use of iterative reconstruction technique). RADIATION DOSE SUMMARY: CTDlvol: 45.0 mGy DLP: 1376 mGycm COMPARISON: Same-day CT head without contrast FINDINGS: Aortic Arch: Normal size and branching pattern. Mild atherosclerotic plaque. Brachiocephalic and Subclavians: Mild atherosclerotic plaque without significant stenosis. RIGHT Carotid: Right CCA: Mild calcified and soft plaque. Tortuous course. Right ICA: Mild calcified and soft plaque. Maximum stenosis (NASCET): <50% Right ECA: Unremarkable. LEFT Carotid: Left CCA: Mild calcified and soft plaque. Left ICA: Mild calcified and soft plaque. Maximum stenosis (NASCET): <50% Left ECA: Unremarkable. Vertebrals: Right dominant. Arise from the subclavians. Both vertebrals form the basilar. RIGHT Vertebral: Unremarkable. LEFT Vertebral: Absent opacification of the left vertebral artery at the V1 and V2 segments, with reconstitution at the V3 segment. There is focal narrowing near the junction of the V3/V4 segments (series 5, image 270). No dissection flap is visualized. Anatomy: The A1 segment of the right CHELI is hypoplastic. Aneurysm or AVM: None identified. Anterior cerebral arteries: Anatomy as above, otherwise unremarkable Middle cerebral arteries: Unremarkable. Basilar artery: Unremarkable. Posterior cerebral arteries: Unremarkable. Other major branches of the posterior circulation: Unremarkable. Major venous structures: Unremarkable. Other findings: Neck: No lymphadenopathy. Lungs: Peripheral reticulation of the lung apices. Mediastinum: Enlarged main pulmonary artery. There are few prominent subcentimeter nodes which may be reactive. Bones: Degenerative changes of the spine. CT/STROKE CTA Head AND Neck W/Con IMPRESSION: 1. Occlusion of the V1 and V2 segments of the left vertebral artery, with natali nstitution at the V3 segment. Additionally, there is focal narrowing near the junction of the left V3/V4 segments. Of note, there is right dominant vertebral artery anatomy. Correlate with findings on upcoming MRI. 2. No hemodynamically significant narrowing or occlusion involving the carotid arteries. Of note, there is a tortuous course of the right common carotid artery. 3. Enlarged main pulmonary artery, suggestive of pulmonary hypertension. 4. Peripheral reticulation at the lung apices, partially imaged. Reading Location: [id number]
[2025-04-01 16:57] LABS: Magnesium 1.9 mg/dL (1.5-2.2)
[2025-04-01 17:15] LABS: Reflex Lactate? Y
--- NOTE | 2025-04-01 17:21 | PCM.HOSP.N ---
Hospitalist Note Stroke alert was called. I went in to see the patient and was taken to the CT head to radiologist read. Earlier patient was admitted with unresponsiveness, altered mental status and was drowsy and lethargic in the ED. NIHSS stroke calcualted and it was 10 at 4:30 PM and 12 at 4:45 PM. Minor facial droop, decreased level of consciousness last 2,LOC question 1, LOC, on 1 LOC question 1, LOC, and 1, partial gaze 1, both legs drifting, last 2, 1+ mild to moderate aphasia and mild inattention 1 Discussed with the teleneurologist on robot video. Patient not candidate for tenecteplase because time of last known, unclear probably last night before she went to sleep. NIH stroke scale order set ordered. Patient is in the ICU. [facility] radiologist called that patient CT was negative for acute stroke/hemorrhage. PT, OT, speech therapy/swallow evaluation and management, nursing NIH stroke scale, BP and glucose monitoring and control as per stroke protocol. A1c fasting lipid profile tomorrow AM. MRI brain and 2D echo with bubble contrast study ordered. TSH normal. Follow stroke guidelines for BP and glucose monitoring.
[2025-04-01] MEDS: Enoxaparin 40 MG/0.4 ML Syringe SC (18:08)
[2025-04-01] MEDS: Pantoprazole Sodium 40 MG in 0.9% Normal Saline (100mL MB+) 100 ML 330 MG IV (18:26)
[2025-04-01 19:21] LABS: Bedside Glucose 85 mg/dL (74-106)
[2025-04-01 19:25] LABS: Lactic Acid 4.8 mmol/L (0.0-2.0)
[2025-04-01 19:26] LABS: Troponin T High Sensitivity 324 ng/L (<=14)
[2025-04-01 20:38] LABS: Troponin T High Sens 2 HR 312 ng/L (<=14)
[2025-04-01] MEDS: 0.9% Normal Saline (1000mL) 1,000 ML 100 ML IV (21:44)
[2025-04-01] MEDS: Aspirin 300 MG Suppository RC (21:45)
[2025-04-02] VITALS (48 sets, daily range): BP systolic 66–133; BP diastolic 47–98; PULSE 74–110; RESP 16–31; TEMP 36.6–38; O2SAT 91–100; BMI 32.8; BMI 32.1
[2025-04-02 00:36] LABS: Bedside Glucose 115 mg/dL (74-106)
[2025-04-02] MEDS: Norepinephrine 8 MG in 0.9% Normal Saline (250mL Bag) 242 ML 9.4 MG CONT INF (01:15)
--- NOTE | 2025-04-02 03:33 | PCM.PN.BLA ---
Progress Note Admitted for UTI and then had a stroke alert called. She had been hypotensive and received several liters of fluid without any recovery so she was started on Levophed. Blood cultures are positive and she is on broad-spectrum antibiotics.
[2025-04-02 04:28] LABS: Absolute Lymphocyte Count 2.77 X10^3/uL (0.83-4.51); Absolute Neutrophil Count 26.1 X10^3/uL (2.0-7.7); Basophil# 0.19 X10^3/uL; Basophil% 0.6 % (0-1); Eosinophil# 0.01 X10^3/uL; Hematocrit 36.6 % (37-47); Hemoglobin 11.9 g/dL (12.0-15.0); Lymphocyte # 2.77 X10^3/ul (0.83-4.51); Lymphocyte % 9.1 % (19-41); Mean Corp Hgb Conc 32.5 g/dL (32-36); Mean Corpuscular Hgb 30.8 pg (27.0-32.0); Mean Corpuscular Volume 94.8 fL (81-99); Mean Platelet Vol. 9.8 fl (6.2-12.0); Monocyte# 1.22 X10^3/uL; NRBC Flagged by Analyzer 0 % (0-5); Neutrophil # 26.14 X10^3/uL (2.7-7.7); Neutrophil % 85.6 % (47-70); POSITIVE COUNT YES; POSITIVE DIFFERENTIAL YES; Platelet Count 208 K/mm3 (150-450); RBC Distribution Width CV 13.9 % (11.6-14.6); RBC Distribution Width SD 47.9 fl (35.1-43.9); Red Blood Count 3.86 M/mm3 (4.2-5.4)
[2025-04-02 04:40] LABS: Differential Indicated SCAN CRITERIA MET; White Blood Count 30.6 K/mm3 (4.4-11.0)
[2025-04-02 04:52] LABS: Anion Gap 12 (5-15); BUN 25 mg/dL (4-19); BUN/Creat Ratio 18.9 RATIO (10-20); Calcium,Total 7.8 mg/dL (7.6-11.0); Carbon Dioxide 19.3 mmol/L (21.0-32.0); Chloride 110 mmol/L (98-108); Cholesterol 120 mg/dL (<=200); Creatinine, Serum 1.31 mg/dL (0.70-1.20); EST Glomerular Filtration Rate 40 (>60); Estimated Creatinine Clearance 33.43 ml/min (50-250); Glucose 125 mg/dL (70-99); High Density Lipoprotein 25 mg/dL; Low Density Lipoprotein Calc. 64 mg/dL; Potassium 4.1 mmol/L (3.3-5.1); Sodium Level 141 mmol/L (133-145); Triglycerides 154 mg/dL; Very Low Density Lipoprotein 31 mg/dL (5-40); cholesterol:hdl ratio screen 4.84
[2025-04-02 05:22] LABS: Hemoglobin A1c 5.8 % (<=5.6)
--- NOTE | 2025-04-02 05:55 | ECHOD_ITS ---
Reason For Study Reason For Study: TIA/CVA Procedure This was a 2D Doppler, Color Flow transthoracic echocardiogram. Exam performed portable in ICU/CCU. Left Ventricle Normal size and thickness. Mild generalized LV hypokinesis. Estimated LVEF 45%. Stage II diastolic dysfunction. Right Ventricle Normal right ventricle. Atria There is mild biatrial dilatation. Mitral Valve Mild focal chordal calcification. Mild mitral valve regurgitation. Tricuspid Valve Severe (4+) tricuspid valve insufficiency. Right ventricular systolic pressure estimated to be 56 mmHg. Aortic Valve Mild (1+) aortic valve insufficiency. Pulmonic Valve The pulmonic valve is not well visualized. Great Vessels Mildly dilated aortic root. Pericardium/Pleural No pericardial effusion. MMode/2D Measurements & Calculations LVIDd: 4.9 cm IVSd: 0.96 cm Ao root diam: 3.9 cm LVIDs: 3.8 cm LVPWd: 0.83 cm FS: 22.9 % LAV(MOD-bp): 68.0 ml LVAd ap4: 23.5 cm2 SV(MOD-sp4): 29.7 ml LAV(MOD-bp) Indexed: 36.7 ml/m2 LVLd ap4: 6.5 cm SI(MOD-sp4): 16.0 ml/m2 LAV(MOD-sp2): 59.5 ml EDV(MOD-sp4): 68.7 ml LAV(MOD-sp4): 63.3 ml EDV(sp4-el): 72.4 ml LVAs ap4: 17.3 cm2 LVLs ap4: 6.4 cm ESV(MOD-sp4): 39.0 ml ESV(sp4-el): 40.0 ml EF(MOD-sp4): 43.2 % EF(sp4-el): 44.7 % SV(sp4-el): 32.4 ml LA A4 area: 21.3 cm2 LA dimension(2D): 4.4 cm RA A4 area: 16.9 cm2 TAPSE: 2.2 cm Time Measurements MV dec time: 0.17 sec Doppler Measurements & Calculations MV E max ti: 61.6 cm/sec Lat Peak E' Ti: 7.2 cm/sec Med Peak E' Ti: 6.0 cm/sec MV A max ti: 127.5 cm/sec E/E' lat: 8.5 E/E' med: 10.2 MV E/A: 0.48 MV V2 max: 152.4 cm/sec MV P1/2t max ti: 70.5 cm/sec Ao V2 max: 143.9 cm/sec MV max P.3 mmHg MV P1/2t: 66.0 msec Ao max P.3 mmHg MV V2 mean: 79.4 cm/sec Ao V2 mean: 97.6 cm/sec MV mean P.2 mmHg MV dec slope: 313.2 cm/sec2 Ao mean P.3 mmHg MV V2 VTI: 26.0 cm MVA(P1/2t): 3.3 cm2 Ao V2 VTI: 24.0 cm AV (velocity ratio): 0.76 AI max ti: 394.7 cm/sec LV V1 max: 109.3 cm/sec MR max ti: 452.3 cm/sec AI max P.4 mmHg LV V1 max P.8 mmHg MR max P.8 mmHg LV V1 mean P.6 mmHg AI dec slope: 381.3 cm/sec2 LV V1 mean: 73.9 cm/sec AI P1/2t: 303.2 msec LV V1 VTI: 18.3 cm PA V2 max: 87.2 cm/sec TR max ti: 320.5 cm/sec TR max P.1 mmHg ECHO/Echo Complete Interpretation Summary Mild generalized LV hypokinesis. Estimated LVEF 45%. Stage II diastolic dysfunc tion. There is mild biatrial dilatation. Mild focal chordal calcification. Mild mitral valve regurgitation. Severe (4+) tricuspid valve insufficiency. Right ventricular systolic pressure estimated to be 56 mmHg. Mild (1+) aortic valve insufficiency. Mildly dilated aortic root. Ordering Physician: Sonido Bardales Referring Physician: Sonido Bardales Performed By: Jacob Jc RCS
[2025-04-02] MEDS: Piperacil/Tazobactam 3.375 GM in 0.9% Normal Saline (50mL MB+) 50 ML IV ×3 (06:02→21:40)
[2025-04-02 06:09] LABS: Bedside Glucose 92 mg/dL (74-106)
[2025-04-02 06:25] LABS: Platelet Estimate ADEQUATE (ADEQ); Platelet Morphology LARGE; Red Cell Morphology NORM C+C NORMAL (NORM C&C); Vacuolated Cells 1+
--- NOTE | 2025-04-02 07:26 | PCM.PN.INT ---
Assessment & Plan Assessment/Plan (1) Septic shock: PLAN: Plan RECOMMENDATIONS: 1. Continue to wean Levophed to maintain a mean arterial pressure at or above 65 mmHg. 2. Continue broad-spectrum antimicrobials, pending culture workup. 3. Encourage incentive spirometer use and mobilize patient as tolerated. 4. Awaiting final read on MRI brain. IMPRESSIONS: 1. Septic shock The patient has evidence of Gram variable bacteremia with concern for possible UTI versus pneumonia. The patient has been volume resuscitated and is currently being weaned from vasopressor support. Levophed will be continued to maintain a mean arterial pressure at or above 65 mmHg. The patient will be continued on empiric broad-spectrum antimicrobials, pending culture results. 2. Toxic/metabolic encephalopathy Likely related to presenting septic shock. However, given presenting discerns for CVA, CT head along with CTA head and neck was performed. MRI brain is currently pending. 3. History of CHF/metastatic breast cancer to bone/brain/history of ILD/anxiety/hypothyroidism Complicates care, management, recovery and prognosis. Continue supportive measures as noted above. TIME: 34 minutes of critical care time, independent of procedures, was spent addressing the patient's septic shock, acute encephalopathy, review of all data and collaboration with the care team. Subjective Subjective The patient was seen and examined at the bedside this morning. Events from the last 24 hours have been reviewed. The patient is currently afebrile on low-dose Levophed at 2 mcg/min. The patient has no specific complaints this morning. She is documented to be overall net +4.7 L for the hospitalization. White blood cell count is elevated at 31,000. Creatinine is stable at 1.3. The patient fam on empiric broad-spectrum antimicrobials. Objective Data Objective Data The patient's most recent lab work, culture data and imaging studies have all been personally reviewed. Preliminary blood cultures dated April 01 were positive for gram variable rods. Strep and urine Legionella antigens were negative. Respiratory viral panel was negative. Urine culture is pending. Vital Signs: Vital Signs Temp Pulse Resp BP Pulse Ox O2 Del Method O2 Flow Rate 97.9 F 95 25 H 122/70 H 91 Room Air 4 04/02/25 05:00 04/02/25 07:00 04/02/25 07:00 04/02/25 07:00 04/02/25 07:00 04/02/25 07:00 04/01/25 12:16 Oxygen Flow Rate (L/min) 4 Oxygen Delivery Method Room Air Weight: 181 lb 10.574 oz Body Mass Index (BMI) 32.1 Intake & Output: Intake and Output for Last 24 Hours 03/31/25 04/01/25 04/02/25 23:59 23:59 23:59 Intake Total 4740 / 4740 942.14 / 942.14 Output Total 600 / 600 300 / 300 Balance 4140 / 4140 642.14 / 642.14 Lab / Micro Data Attestation: I reviewed the patient's lab results. 04/02/25 04:18 04/02/25 04:18 Labs: Laboratory Results - last 24 hr 04/01/25 12:01: WBC 17.2 H, RBC 4.49, Hgb 13.9, Hct 41.2, MCV 91.8, MCH 31.0, MCHC 33.7, RDW Std Deviation 44.3 H, RDW Coeff of Tiffany 13.2, Plt Count 160, MPV 12.2 H, Immature Gran % (Auto) 0.500, Neut % (Auto) 90.0 H, Lymph % (Auto) 8.4 L, [place] % (Auto) 0.5, Eos % (Auto) 0.1, Baso % (Auto) 0.5, Absolute Neuts (auto) 15.5 H, Absolute Lymphs (auto) 1.44, Nucleated RBC % 0, Sodium 139, Potassium 4.1, Chloride 105, Carbon Dioxide 18.1 L, Anion Gap 17 H, BUN 22 H, Creatinine 1.36 H, Estim Creat Clear Calc 32.02 L, Est GFR (MDRD) Non-Af 39 L, BUN/Creatinine Ratio 15.8, Glucose 116 H, Calcium 9.0, Magnesium 1.9, Total Bilirubin 1.02, AST 40 H, ALT 18, Alkaline Phosphatase 66, Total Creatine Kinase 460 H, Total Protein 6.7, Albumin 3.5, Globulin 3.2, Albumin/Globulin Ratio 1.1, TSH 1.300 04/01/25 12:55: POC Glucose 113 H 04/01/25 13:10: Lactic Acid 4.4 H*, Urine Color Yellow, Urine Clarity Turbid, Urine pH 7.0, Ur Specific [place] 1.010, Urine Protein TNP, Urine Glucose (UA) Normal, Urine Ketones Negative, Urine Occult Blood 250 H, Urine Nitrite Negative, Urine Bilirubin Negative, Urine Urobilinogen Normal, Ur Leukocyte Esterase 500 H, Urine RBC 0 SEEN, Urine WBC >100 SEEN, Ur Squamous Epith Cells 0 SEEN, Urine Bacteria 0 SEEN, Urine Mucus 0 SEEN, U Random Total Protein 73.6 H 04/01/25 14:40: PT 17.2 H, INR 1.4, APTT 29.7 04/01/25 18:21: Lactic Acid 4.8 H*, Troponin T High Sens 324 H* 04/01/25 18:51: POC Glucose 85 04/01/25 20:07: Troponin T Hi Sens 2 Hr 312 H* 04/02/25 00:11: POC Glucose 115 H 04/02/25 04:18: WBC 30.6 H*, RBC 3.86 L, Hgb 11.9 L, Hct 36.6 L, MCV 94.8, MCH 30.8, MCHC 32.5, RDW Std Deviation 47.9 H, RDW Coeff of Tiffany 13.9, Plt Count 208, MPV 9.8, Immature Gran % (Auto) 0.700, Neut % (Auto) 85.6 H, Lymph % (Auto) 9.1 L, [place] % (Auto) 4.0, Eos % (Auto) 0.0, Baso % (Auto) 0.6, Absolute Neuts (auto) 26.1 H, Absolute Lymphs (auto) 2.77, Nucleated RBC % 0, Diff Path Review May foll, Toxic Vacuolation 1+, Platelet Estimate ADEQUATE, Plt Morphology Comment LARGE, RBC Morphology NORM C+C, Sodium 141, Potassium 4.1, Chloride 110 H, Carbon Dioxide 19.3 L, Anion Gap 12, BUN 25 H, Creatinine 1.31 H, Estim Creat Clear Calc 33.43 L, Est GFR (MDRD) Non-Af 40 L, BUN/Creatinine Ratio 18.9, Glucose 125 H, Hemoglobin A1c 5.8 H, Calcium 7.8, Triglycerides 154, Cholesterol 120, LDL Cholesterol, Calc 64, VLDL Cholesterol 31, HDL Cholesterol 25 L, Cholesterol/HDL Ratio 4.84, Free T4 1.30 04/02/25 05:52: POC Glucose 92 Micro: Microbiology 04/01/25 13:45 Blood Culture (Wb) - Anticubital Right Blood Culture - Preliminary 04/01/25 13:59 Blood Culture (Wb) - Anticubital Right Blood Culture - Preliminary 04/01/25 19:07 Nasal Secretion MRSA (PCR) - Final 04/01/25 17:15 Mucosa - Nasopharyngeal Respiratory Panel (PCR) - Final 04/01/25 13:10 Urine Catheter - Catheter Legionella Antigen - Final 04/01/25 13:10 Urine Catheter - Catheter Streptococcus pneumoniae Antigen (M - Final 04/01/25 13:10 Mucosa - Nose SARS-CoV-2, Influenza & RSV (PCR) - Final Radiography Diagnostic Testing: Radiology Impression Brain CT 04/01/25 12:28 IMPRESSION: No acute intracranial finding. Reading Location: [facility] Chest X-Ray 04/01/25 13:25 IMPRESSION: 1. Slight increased interstitial opacities, which may represent acute pneumonitis/pneumonia on chronic interstitial lung disease. 2. Probable trace pleural effusions. Reading Location: [facility] Abdomen/Pelvis CT 04/01/25 14:48 IMPRESSION: 1. Stone in the left distal ureter measuring 4 mm resulting in [id number] upstream left-sided hydroureteronephrosis. 2. Left adrenal nodule measuring 1.7 cm, likely a benign adenoma. 3. Colonic diverticulosis without evidence of acute diverticulitis. 4. Hydropic gallbladder without radiodense stones or additional findings of acute cholecystitis. 5. Bibasilar reticulations in the lungs. 6. Cardiomegaly. Reading Location: [id number] Brain CT 04/01/25 16:39 IMPRESSION: No acute, large territorial infarction. Reading Location: [id number] Head/Neck CTA 04/01/25 16:39 IMPRESSION: 1. 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 Additionally, there is focal narrowing near the junction of the left V3/V4 segments. Of note, there is right dominant vertebral artery anatomy. Correlate with findings on upcoming MRI. 2. No hemodynamically significant narrowing or occlusion involving the carotid arteries. Of note, there is a tortuous course of the right common carotid artery. 3. Enlarged main pulmonary artery, suggestive of pulmonary hypertension. 4. Peripheral reticulation at the lung apices, partially imaged. Reading Location: [facility] Rhythm Strip Rhythm Strip: Sinus Tach Rate: 112 Ectopy: None Physical Exam Const alert, oriented x3 and no apparent distress General Appearance: cooperative and ill appearing HEENT normocephalic and head/scalp atraumatic Eyes PERRL, EOMs intact bilaterally and conjunctivae normal Neck supple General: trachea midline Chest inspection of chest normal Resp normal respiratory effort Auscultation: rales and diminished lung sounds Cardio regular rate and regular rhythm GI normal to inspection, nondistended, normoactive bowel sounds Extremity no clubbing, cyanosis or edema Skin no rashes or lesions noted Neuro CN's II-XII intact bilaterally and no focal motor deficits Psych cooperative and affect normal Charges/Coding Procedures Hospitalists Procedures: 23523 Critical Care 1st Hr
--- NOTE | 2025-04-02 08:22 | CASEMGMT ---
Social Work PHQ-9 not completed at this time due to pt having confusion. KRYSTIN Lemos
--- NOTE | 2025-04-02 09:00 | MRI_ITS ---
PROCEDURE: BRAIN WITHOUT CONTRAST 04/02/2025 REASON FOR EXAM: AMS, SUSPECTED STROKE Cats. Tense TECHNIQUE: Noncontrast brain MRI. Multiplanar and multisequence images were obtained. COMPARISON: CT brain without contrast, CTA head and neck, 04/01/2025. FINDINGS: There is mild cerebral atrophy with concomitant ventriculomegaly. There is no evidence of acute intracranial hemorrhage or infarction. There is patchy low-density of the periventricular and subcortical white matter in both cerebral hemispheres consistent with chronic ischemic white matter disease. There is focal signal abnormality in the left cerebellar hemisphere corresponding to the coarse calcification seen on the noncontrast CT examination of the previous day. There is a normal sulcal pattern and gyral configuration. The fernandez-white differentiation is well preserved. There is no evidence of restricted diffusion. The basilar cisterns are normal. There is abnormal signal within the left vertebral artery corresponding to the area of apparent obstruction seen on the CTA of the previous day. There are otherwise normal flow voids demonstrated in the recognized intracranial vessels. The cerebellum and brainstem are unremarkable. The cerebellar pontine angles are normal. The craniovertebral junction is normal. The sella and suprasellar regions are normal. There are bilateral intraorbital lens prostheses. The orbits and retro-orbital regions are otherwise unremarkable. There is nasal septal deviation to the left. There is mucoperiosteal thickening of multiple ethmoidal air cells. The paranasal sinuses are otherwise clear. The mastoid air cells are clear. There is normal bone marrow signal in the skull base and calvarium. MRI/Brain without Contrast IMPRESSION: One. No evidence of acute intracranial infarction. Two. Absent flow void in the left vertebral artery consistent with obstruction . Three. Cerebral atrophy. Four. Other findings as noted. Reading Location: [id number]
--- NOTE | 2025-04-02 09:57 | NURSING ---
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
--- NOTE | 2025-04-02 10:39 | PN_ITS ---
Subjective Subjective Patient seen and examined. She had no active complaints today. She denied any vomiting or any other symptoms. Review of systems otherwise negative. She is going for MRI of the brain today to rule out a stroke. Objective Data Objective Data Vital Signs: Vital Signs Temp Pulse Resp BP Pulse Ox O2 Del Method O2 Flow Rate 98.4 F 88 16 109/64 97 Room Air 4 04/02/25 09:00 04/02/25 10:30 04/02/25 10:30 04/02/25 10:30 04/02/25 10:30 04/02/25 10:30 04/01/25 12:16 Oxygen Flow Rate (L/min) 4 Oxygen Delivery Method Room Air Weight: 181 lb 10.574 oz Body Mass Index (BMI) 32.1 Intake & Output: Intake and Output for Last 24 Hours 03/31/25 04/01/25 04/02/25 23:59 23:59 23:59 Intake Total 4740 / 4740 996.99 / 996.99 Output Total 600 / 600 300 / 300 Balance 4140 / 4140 696.99 / 696.99 Lab / Micro Data 04/02/25 04:18 04/02/25 04:18 Labs: Laboratory Results - last 24 hr 04/01/25 12:01: WBC 17.2 H, RBC 4.49, Hgb 13.9, Hct 41.2, MCV 91.8, MCH 31.0, MCHC 33.7, RDW Std Deviation 44.3 H, RDW Coeff of Tiffany 13.2, Plt Count 160, MPV 12.2 H, Immature Gran % (Auto) 0.500, Neut % (Auto) 90.0 H, Lymph % (Auto) 8.4 L , [place] % (Auto) 0.5, Eos % (Auto) 0.1, Baso % (Auto) 0.5, Absolute Neuts (auto) 15.5 H, Absolute Lymphs (auto) 1.44, Nucleated RBC % 0, Sodium 139, Potassium 4.1, Chloride 105, Carbon Dioxide 18.1 L, Anion Gap 17 H, BUN 22 H, Creatinine 1.36 H, Estim Creat Clear Calc 32.02 L, Est GFR (MDRD) Non-Af 39 L, BUN/Creatinine Ratio 15.8, Glucose 116 H, Calcium 9.0, Magnesium 1.9, Total Bilirubin 1.02, AST 40 H, ALT 18, Alkaline Phosphatase 66, Total Creatine Kinase 460 H, Total Protein 6.7, Albumin 3.5, Globulin 3.2, Albumin/Globulin Ratio 1.1, TSH 1.300 04/01/25 12:55: POC Glucose 113 H 04/01/25 13:10: Lactic Acid 4.4 H*, Urine Color Yellow, Urine Clarity Turbid, Urine pH 7.0, Ur Specific [place] 1.010, Urine Protein TNP, Urine Glucose (UA) Normal, Urine Ketones Negative, Urine Occult Blood 250 H, Urine Nitrite Negative, Urine Bilirubin Negative, Urine Urobilinogen Normal, Ur Leukocyte Esterase 500 H, Urine RBC 0 SEEN, Urine WBC >100 SEEN, Ur Squamous Epith Cells 0 SEEN, Urine Bacteria 0 SEEN, Urine Mucus 0 SEEN, U Random Total Protein 73.6 H 04/01/25 14:40: PT 17.2 H, INR 1.4, APTT 29.7 04/01/25 18:21: Lactic Acid 4.8 H*, Troponin T High Sens 324 H* 04/01/25 18:51: POC Glucose 85 04/01/25 20:07: Troponin T Hi Sens 2 Hr 312 H* 04/02/25 00:11: POC Glucose 115 H 04/02/25 04:18: WBC 30.6 H*, RBC 3.86 L, Hgb 11.9 L, Hct 36.6 L, MCV 94.8, MCH 30.8, MCHC 32.5, RDW Std Deviation 47.9 H, RDW Coeff of [place]iffany 13.9, Plt Count 208, MPV 9.8, Immature Gran % (Auto) 0.700, Neut % (Auto) 85.6 H, Lymph % (Auto) 9.1 L, [place] % (Auto) 4.0, Eos % (Auto) 0.0, Baso % (Auto) 0.6, Absolute Neuts (auto) 26.1 H, Absolute Lymphs (auto) 2.77, Nucleated RBC % 0, Diff Path Review May foll, Toxic Vacuolation 1+, Platelet Estimate ADEQUATE, Plt Morphology Comment LARGE, RBC Morphology NORM C+C, Sodium 141, Potassium 4.1, Chloride 110 H, C arbon Dioxide 19.3 L, Anion Gap 12, BUN 25 H, Creatinine 1.31 H, Estim Creat Clear Calc 33.43 L, Est GFR (MDRD) Non-Af 40 L, BUN/Creatinine Ratio 18.9, G lucose 125 H, Hemoglobin A1c 5.8 H, Calcium 7.8, Triglycerides 154, Cholesterol 120, LDL Cholesterol, Calc 64, VLDL Cholesterol 31, HDL Cholesterol 25 L, Cholesterol/HDL Ratio 4.84, Free T4 1.30 04/02/25 05:52: POC Glucose 92 Micro: Microbiology 04/01/25 13:59 Blood Culture (Wb) - Anticubital Right Blood Culture - Preliminary 04/01/25 13:45 Blood Culture (Wb) - Anticubital Right Blood Culture - Preliminary 04/01/25 19:07 Nasal Secretion MRSA (PCR) - Final 04/01/25 17:15 Mucosa - Nasopharyngeal Respiratory Panel (PCR) - Final 04/01/25 13:10 Urine Catheter - Catheter Legionella Antigen - Final 04/01/25 13:10 Urine Catheter - Catheter Streptococcus pneumoniae Antigen (M - Final 04/01/25 13:10 Mucosa - Nose SARS-CoV-2, Influenza & RSV (PCR) - Final Radiography Diagnostic Testing: Radiology Impression Brain CT 04/01/25 12:28 IMPRESSION: No acute intracranial finding. Reading Location: [facility] Chest X-Ray 04/01/25 13:25 IMPRESSION: 1. Slight increased interstitial opacities, which may represent acute pneumonitis/pneumonia on chronic interstitial lung disease. 2. Probable trace pleural effusions. Reading Location: [facility] Abdomen/Pelvis CT 04/01/25 14:48 IMPRESSION: 1. Stone in the left distal ureter measuring 4 mm resulting in [id number] upstream left-sided hydroureteronephrosis. 2. Left adrenal nodule measuring 1.7 cm, likely a benign adenoma. 3. Colonic diverticulosis without evidence of acute diverticulitis. 4. Hydropic gallbladder without radiodense stones or additional findings of acute cholecystitis. 5. Bibasilar reticulations in the lungs. 6. Cardiomegaly. Reading Location: [id number] Brain CT 04/01/25 16:39 IMPRESSION: No acute, large territorial infarction. Reading Location: [id number] Head/Neck CTA 04/01/25 16:39 IMPRESSION: 1. 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 Additionally, there is focal narrowing near the junction of the left V3/V4 segments. Of note, there is right dominant vertebral artery anatomy. Correlate with findings on upcoming MRI. 2. No hemodynamically significant narrowing or occlusion involving the carotid arteries. Of note, there is a tortuous course of the right common carotid artery. 3. Enlarged main pulmonary artery, suggestive of pulmonary hypertension. 4. Peripheral reticulation at the lung apices, partially imaged. Reading Location: [id number] Rhythm Strip Rhythm Strip: Sinus Tach Rate: 112 Ectopy: None Physical Exam Const alert, oriented x3 and no apparent distress Constitutional Narrative: frail General Appearance: cooperative HEENT normocephalic, head/scalp atraumatic, moist oral mucous membranes and oropharynx normal Eyes PERRL and EOMs intact bilaterally Neck no lymphadenopathy and supple Lymph Lymphatic: no lymphadenopathy noted and no lymphedema noted Resp Resp Narrative: diminished breath sounds bibasally, no wheezes or crackle. On room air. Cardio regular rate, regular rhythm, S1 normal heart sound, S2 normal heart sound and no murmurs GI normal to inspection, nondistended, normoactive bowel sounds, soft to palpation and non-tender Extremity normal capillary refill, no clubbing, cyanosis or edema and no calf tenderness General Extremity: no tenderness to palpation of joints or extremities Neuro CN's II-XII intact bilaterally, no focal motor deficits and no sensory deficits noted Motor Exam: general weakness Psych thought process normal, cooperative and affect normal Appearance: appropriate Assessment & Plan Assessment/Plan (1) Acute lactic acidosis: (2) Septic shock: (3) Leukocytosis: PLAN: Plan #Septic shock due to UTI * She was tachycardic and tachypneic on admission with concern for UTI and pneumonia. Urinalysis did show evidence of UTI and CT of the abdomen and pelvis did not show any evidence of pyelonephritis * Respiratory panel for COVID, influenza and flu were negative. Chest x-ray showed increased interstitial opacity more in the left lung base with concern for pneumonia. * On broad-spectrum antibiotics with IV vancomycin and Zosyn. Blood and urine cultures pending. * she was hydrated with IVF but required vasopressors. She was quickly weaned off of this though. * blood cultures positive for gram negative rods. ID consulted. * wbc is up to 30.6 today, from 17.2 yesterday. #Acute encephalopathy * Largely resolved. Stroke alert was called yesterday. CT of the brain did not show any acute intracranial pathology. CTA of the head and neck showed no hemodynamically significant stenosis. * for MRI of the brain today. #Chronic heart failure * 2D echo ordered. * not on IV lasix due to BP running low * Initial troponin was 3.12 but this was not cycled. 2D echo pending. * Meds being diuresed currently on account of septic shock. #Hypothyroidism: on synthroid #Interstitial lung disease: stable. Not requiring oxygen #History of breast cancer with mets to bone: s/p right mastectomy. Stable. Follow up with oncology on outpatient basis. #Hypertension: BP meds held. IV hydralazine prn. #GERD and anxiety: on PPI DVT prophylaxis: lovenox Charges/Coding Visit Charges Inpatient E&M: 52195 [facility] L[facility]
[2025-04-02] MEDS: Aspirin 81 MG TAB.CHEW PO (11:20)
[2025-04-02] MEDS: Enoxaparin 40 MG/0.4 ML Syringe SC (11:20)
[2025-04-02] MEDS: Pantoprazole Sodium 40 MG in 0.9% Normal Saline (100mL MB+) 100 ML 330 MG IV (11:21)
--- NOTE | 2025-04-02 13:09 | CON.PCM.NE_ITS ---
Assessment and Plan: Neuro Assessment/Plan MYCHAL DODD is a 84 F with a past medical history of HTN, CHF, neuropathy, being evaluated by Teleneurology for AMS. On exam in improved but continues to have some delirium, difficulty with concentration. On imaging there is an incidental R cerebellar stroke, very small and likely not causing symptoms. She likely had some component of AMS from the septic shock. Stroke etiology likely from septic shock as well. Plan: - ASA 81mg - TTE - LDL 63, no need to start statin - keep SBP 100-140, MAP > 70 - DVT prophylaxis with SCDs and heparin SQ - delirium precautions per primary team No further recs from neurology, will sign off. I personally attended this patient and spent a total time of 45minutes evaluating this patient including clinical assessment, review of chart, medical history imaging, and determining appropriate treatment and workup. HPI Consult Data Date of Consult: 04/02/25 HPI Narrative HPI Narrative: MYCHAL DODD, is a 84 F with multiple comorbidities was brought by EMS when daughter found her unresponsive. As per EMS, she only opened her eyes but could not speak and gradually started becoming more responsive. She was also having headache as per the EMS and daughter which has resolved now. EMS vitals temperature 99.2 ?F. BP was low 77/46, RR 14, heart rate 122 Currently she denies chest pain pressure tightness, shortness of breath, nausea or vomiting. As per daughter, she complained of left upper quadrant and left upper back pain/renal angle pain yesterday. Usually she is on 100 mg gabapentin once daily but she gave 1 more as she was instructed by the physician. Currently she denies abdominal pain, acute urine tract symptoms including burning micturition. As per daughter she had UTI in the past without any complaint. In ED, she was hypotensive, tachycardic, BP 84/55, heart rate 114/min but gradually it is getting better. Culture sent IV fluid as per sepsis protocol and patient being admitted in ICU. Earlier patient was admitted with unresponsiveness, altered mental status and was drowsy and lethargic in the ED. NIHSS stroke calcualted and it was 10 at 4:30 PM and 12 at 4:45 PM. Minor facial droop, decreased level of consciousness last 2,LOC question 1, LOC, on 1 LOC question 1, LOC, and 1, partial gaze 1, both legs drifting, last 2, 1+ mild to moderate aphasia and mild inattention 1 Discussed with the teleneurologist on robot video. Patient not candidate for tenecteplase because time of last known, unclear probably last night before she went to sleep. NIH stroke scale order set ordered. Patient is in the ICU. [facility] called that patient CT was negative for acute stroke/hemorrhage. PT, OT, speech therapy/swallow evaluation and management, nursing NIH stroke scale, BP and glucose monitoring and control as per stroke protocol. A1c fasting lipid profile tomorrow AM. MRI brain and 2D echo with bubble contrast study ordered. TSH normal. Follow stroke guidelines for BP and glucose monitoring. Neurologic History Pt states she is feeling good today. She thinks she may have a stroke when she was very young. She has no deficits from that and unclear why it happened. Pt does not take any blood thinners at home. Denies diplopia, numbness, endorses speech back to baseline. Pt still a little confused [facility] Medical History Anxiety Hypothyroidism GERD (gastroesophageal reflux disease) Interstitial lung disease Hypertension Breast cancer metastasized to bone Home Medications ?Medication ?Instructions ?Recorded ?Last Taken ?Type omeprazole 20 mg capsule,delayed 20 mg PO DAILY HEARTB URN 01/19/14 Unknown History release cetirizine 10 mg tablet 10 mg PO DAILY ALLERGIES Unknown History ergocalciferol (vitamin D2) 1,250 50,000 unit PO VILLARREAL VILLARREAL PPLEMENT 04/14/21 03/25/25 History mcg (50,000 unit) capsule levothyroxine 75 mcg tablet 75 mcg PO MOTUWETH THYROID 04/14/21 Unknown History metoprolol succinate 50 mg 50 mg PO DAILY BLOOD PRESSU RE 04/14/21 Unknown History tablet,extended release 24 hr levothyroxine 50 mcg tablet 50 mcg PO SUFRSA THYROID 0 11/01/22 Unknown History acetaminophen 500 mg tablet 1,000 mg PO Q6H PRN pain 0 04/01/25 Unknown History albuterol sulfate 90 mcg/actuation 2 inh inhalation Q6 H PRN shortness 04/01/25 Unknown History aerosol inhaler (Ventolin HFA) of breath or wheezing exemestane 25 mg tablet 25 mg PO DAILY HORMONE 04/01 Unknown History gabapentin 100 mg capsule 100 mg PO DAILY NERVE PAIN 0 04/01/25 Unknown History ondansetron 4 mg disintegrating 4 mg PO Q6H PRN nausea and vomiting 04/01/25 Unknown History tablet potassium chloride 10 mEq 10 meq PO DAILY SUPPLEMENT 0 04/01/25 Unknown History tablet,extended release sacubitril 49 mg-valsartan 51 mg 1 tab PO BID BLOOD KS ESSURE 04/01/25 Unknown History tablet (Entresto) torsemide 20 mg tablet 10 mg PO DAILY WATER PILL Unknown History Allergy/AdvReac Type Severity Reaction Status Date / Time tramadol Allergy Other Verified 06/06/23 13:19 tuberculin, purified protein AdvReac Severe Other Verified 06/15/23 13:19 deriva Surgical History History of appendectomy H/O right mastectomy Social History household members: none Smoking Status: Never smoker substance use type: does not use Vital Signs Vital Signs Vital Signs: 04/01/25 13:15 04/01/25 13:19 04/01/25 14:00 Temperature 98.3 F 98.3 F Temperature Source Oral Oral Pulse Rate 114 H 106 H 114 H Respiratory Rate 25 H 30 H Respiratory Effort Respiratory Depth Respiratory Pattern Blood Pressure 101/63 84/55 L 73/59 L Blood Pressure Mean 75 64 63 Blood Pressure Source Blood Pressure Position Blood Pressure Location Pulse Ox 95 93 94 Oxygen Delivery Method Room Air Room Air 04/01/25 14:33 04/01/25 15:00 04/01/25 16:22 Temperature 98.8 F Temperature Source Pulse Rate 110 H 94 115 H Respiratory Rate 24 H 26 H 23 H Respiratory Effort Respiratory Depth Respiratory Pattern Blood Pressure 99/68 105/60 113/67 Blood Pressure Mean 78 75 82 Blood Pressure Source Monitor Blood Pressure Position Semi-Fowlers Blood Pressure Location Left Arm Pulse Ox 94 95 98 Oxygen Delivery Method Room Air Room Air 04/01/25 16:30 04/01/25 16:35 04/01/25 16:45 Temperature 99.8 F H 99.3 F H Temperature Source Temporal Temporal Pulse Rate 118 H 118 H 115 H Respiratory Rate 28 H 28 H 30 H Respiratory Effort Respiratory Depth Respiratory Pattern Blood Pressure 98/52 L 98/52 L 122/65 H Blood Pressure Mean 67 67 84 Blood Pressure Source Monitor Monitor Blood Pressure Position Semi-Fowlers Semi-Fowlers Blood Pressure Location Left Arm Left Arm Pulse Ox 97 97 97 Oxygen Delivery Method Room Air Room Air Room Air 04/01/25 17:00 04/01/25 17:30 04/01/25 18:00 Temperature Temperature Source Pulse Rate 114 H 107 H 111 H Respiratory Rate 26 H 27 H 27 H Respiratory Effort Respiratory Depth Respiratory Pattern Blood Pressure 102/69 114/79 87/59 L Blood Pressure Mean 80 90 68 Blood Pressure Source Monitor Monitor Monitor Blood Pressure Position Semi-Fowlers Semi-Fowlers Semi-Fowlers Blood Pressure Location Left Arm Left Arm Left Arm Pulse Ox 95 96 96 Oxygen Delivery Method Room Air Room Air Room Air 04/01/25 18:30 04/01/25 19:00 04/01/25 19:00 Temperature Temperature Source Pulse Rate 107 H 107 H 102 H Respiratory Rate 28 H 25 H Respiratory Effort Respiratory Depth Respiratory Pattern Blood Pressure 92/60 83/53 L Blood Pressure Mean 70 63 Blood Pressure Source Monitor Monitor Blood Pressure Position Semi-Fowlers Semi-Fowlers Blood Pressure Location Left Arm Left Arm Pulse Ox 99 97 Oxygen Delivery Method Room Air Room Air 04/01/25 20:00 04/01/25 21:00 04/01/25 21:00 Temperature Temperature Source Pulse Rate 99 96 Respiratory Rate 28 H 25 H Respiratory Effort Normal Non-Labored Respiratory Depth Normal Respiratory Pattern Normal Blood Pressure 86/55 L 75/49 L Blood Pressure Mean 65 57 Blood Pressure Source Monitor Monitor Blood Pressure Position Semi-Fowlers Semi-Fowlers Blood Pressure Location Left Arm Left Arm Pulse Ox 96 95 Oxygen Delivery Method Room Air Room Air Room Air 04/01/25 22:00 04/01/25 22:00 04/01/25 23:00 Temperature 98.5 F Temperature Source Oral Pulse Rate 103 H 95 Respiratory Rate 24 H Respiratory Effort Normal Non-Labored Respiratory Depth Normal Respiratory Pattern Normal Blood Pressure 76/57 L Blood Pressure Mean 63 Blood Pressure Source Monitor Blood Pressure Position Semi-Fowlers Blood Pressure Location Left Arm Pulse Ox 95 Oxygen Delivery Method Room Air Room Air 04/01/25 23:00 04/02/25 00:00 04/02/25 01:00 Temperature Temperature Source Oral Pulse Rate 92 88 84 Respiratory Rate 23 H 22 H 20 H Respiratory Effort Respiratory Depth Respiratory Pattern Blood Pressure 84/55 L 77/52 L 66/53 L Blood Pressure Mean 64 60 57 Blood Pressure Source Monitor Monitor Monitor Blood Pressure Position Semi-Fowlers Semi-Fowlers Semi-Fowlers Blood Pressure Location Left Arm Left Arm Left Arm Pulse Ox 95 96 96 Oxygen Delivery Method Room Air Room Air Room Air 04/02/25 01:15 04/02/25 01:30 04/02/25 01:45 Temperature Temperature Source Pulse Rate 89 Respiratory Rate 21 H Respiratory Effort Respiratory Depth Respiratory Pattern Blood Pressure 87/47 L 96/54 L 84/56 L Blood Pressure Mean 60 68 65 Blood Pressure Source Blood Pressure Position Blood Pressure Location Pulse Ox 97 Oxygen Delivery Method Room Air 04/02/25 02:00 04/02/25 02:00 04/02/25 02:15 Temperature Temperature Source Pulse Rate 89 Respiratory Rate 19 H Respiratory Effort Normal Non-Labored Respiratory Depth Normal Respiratory Pattern Normal Blood Pressure 83/57 L 87/62 L Blood Pressure Mean 65 70 Blood Pressure Source Blood Pressure Position Blood Pressure Location Pulse Ox 97 Oxygen Delivery Method Room Air Room Air 04/02/25 02:30 04/02/25 02:45 04/02/25 03:00 Temperature Temperature Source Pulse Rate 81 Respiratory Rate 20 H Respiratory Effort Respiratory Depth Respiratory Pattern Blood Pressure 92/57 L 86/58 L 103/58 L Blood Pressure Mean 68 67 73 Blood Pressure Source Blood Pressure Position Blood Pressure Location Pulse Ox 97 Oxygen Delivery Method Room Air 04/02/25 03:15 04/02/25 03:30 04/02/25 03:45 Temperature Temperature Source Pulse Rate Respiratory Rate Respiratory Effort Respiratory Depth Respiratory Pattern Blood Pressure 105/67 96/57 L 97/58 L Blood Pressure Mean 79 70 71 Blood Pressure Source Blood Pressure Position Semi-Fowlers Semi-Fowlers Semi-Fowlers Blood Pressure Location Left Arm Left Arm Left Arm Pulse Ox Oxygen Delivery Method 04/02/25 04:00 04/02/25 05:00 04/02/25 06:00 Temperature 97.9 F Temperature Source Oral Pulse Rate 79 90 Respiratory Rate 20 H 20 H Respiratory Effort Normal Non-Labored Respiratory Depth Normal Respiratory Pattern Normal Blood Pressure 90/56 L 123/65 H Blood Pressure Mean 67 84 Blood Pressure Source Monitor Blood Pressure Position Semi-Fowlers Semi-Fowlers Blood Pressure Location Left Arm Left Arm Pulse Ox 96 100 Oxygen Delivery Method Room Air Room Air Room Air 04/02/25 06:00 04/02/25 06:15 04/02/25 06:30 Temperature Temperature Source Pulse Rate 98 Respiratory Rate 18 Respiratory Effort Respiratory Depth Respiratory Pattern Blood Pressure 122/79 H 106/67 133/78 H Blood Pressure Mean 93 80 96 Blood Pressure Source Monitor Monitor Monitor Blood Pressure Position Semi-Fowlers Semi-Fowlers Semi-Fowlers Blood Pressure Location Left Arm Left Arm Left Arm Pulse Ox 99 Oxygen Delivery Method Room Air 04/02/25 06:45 04/02/25 07:00 04/02/25 08:00 Temperature Temperature Source Pulse Rate 95 99 Respiratory Rate 25 H 27 H Respiratory Effort Respiratory Depth Respiratory Pattern Blood Pressure 128/72 H 122/70 H 123/64 H Blood Pressure Mean 90 87 83 Blood Pressure Source Monitor Monitor Monitor Blood Pressure Position Semi-Fowlers Semi-Fowlers Semi-Fowlers Blood Pressure Location Left Arm Left Arm Left Arm Pulse Ox 91 96 Oxygen Delivery Method Room Air Room Air 04/02/25 08:03 04/02/25 08:15 04/02/25 08:30 Temperature Temperature Source Pulse Rate Respiratory Rate Respiratory Effort Respiratory Depth Respiratory Pattern Blood Pressure 123/64 H 110/57 L 118/73 Blood Pressure Mean 83 74 88 Blood Pressure Source Blood Pressure Position Blood Pressure Location Pulse Ox Oxygen Delivery Method 04/02/25 08:45 04/02/25 09:00 04/02/25 09:30 Temperature 98.4 F Temperature Source Oral Pulse Rate 110 H Respiratory Rate 31 H Respiratory Effort Respiratory Depth Respiratory Pattern Blood Pressure 109/54 L 113/98 H 105/61 Blood Pressure Mean 72 103 75 Blood Pressure Source Blood Pressure Position Blood Pressure Location Pulse Ox 97 Oxygen Delivery Method Room Air 04/02/25 10:20 04/02/25 10:30 Temperature Temperature Source Pulse Rate 87 88 Respiratory Rate 16 16 Respiratory Effort Respiratory Depth Respiratory Pattern Blood Pressure 120/70 109/64 Blood Pressure Mean 86 79 Blood Pressure Source Monitor Monitor Blood Pressure Position Supine Supine Blood Pressure Location Left Arm Left Arm Pulse Ox 96 97 Oxygen Delivery Method Room Air Room Air Weight Weight: 82.4 kg Body Mass Index (BMI) 32.1 EEG Results Procedure Details EEG Procedure Details: MYCHAL DODD is a 84 year old F with a past medical history of , who presents for evaluation of Electroencephalogram on DATE at TIME Physical Exam Narrative -? General: Laying comfortably in bed; in no acute distress. -? HENT: Normal oropharynx and mucosa. Normal external appearance of ears and nose. Exophthalmos. -? Neck: Supple, no pain or tenderness -? CV:? No peripheral edema. -? Pulmonary:? Normal respiratory effort. -? Ext: No cyanosis, edema, or deformity -? Skin: No rash. Normal palpation of skin.? -? Musculoskeletal: full range of motion; no joint tenderness. Normal digits and nails by inspection. No clubbing. -? NEURO: -? Mental Status: The patient was alert and oriented to time, place, and person. Poor concentration. -? Language: speech is mildly dysarthric.? Naming, repetition, fluency, and comprehension intact. -? Cranial Nerves: EOMI, visual dunaway full, no facial asymmetry, facial sensation intact, hearing intact, tongue midline, no evidence of atrophy or fibrillations. -? Motor: normal bulk, tone, and strength throughout. No pronator drift or satelliting. Upper and lower extremities equal bilaterally. -? Tone: is normal and bulk is normal -? Sensation- Intact to light touch bilaterally -? Coordination: No dysmetria on [id number], finger follow finger or [id number]. -? Gait- Gait initiation was normal. Narrow base with good heel strike and stride length was observed during ambulation. Turns were in stride. Patient was able to walk normally in tandem. Romberg was normal. Lab / Micro Data 04/02/25 04:18 04/02/25 04:18 Labs: Laboratory Results - last 24 hr 04/01/25 12:01: WBC 17.2 H, RBC 4.49, Hgb 13.9, Hct 41.2, MCV 91.8, MCH 31.0, MCHC 33.7, RDW Std Deviation 44.3 H, RDW Coeff of Tiffany 13.2, Plt Count 160, MPV 12.2 H, Immature Gran % (Auto) 0.500, Neut % (Auto) 90.0 H, Lymph % (Auto) 8.4 L , [place] % (Auto) 0.5, Eos % (Auto) 0.1, Baso % (Auto) 0.5, Absolute Neuts (auto) 15.5 H, Absolute Lymphs (auto) 1.44, Nucleated RBC % 0, Sodium 139, Potassium 4.1, Chloride 105, Carbon Dioxide 18.1 L, Anion Gap 17 H, BUN 22 H, Creatinine 1.36 H, Estim Creat Clear Calc 32.02 L, Est GFR (MDRD) Non-Af 39 L, BUN/Creatinine Ratio 15.8, Glucose 116 H, Calcium 9.0, Magnesium 1.9, Total Bilirubin 1.02, AST 40 H, ALT 18, Alkaline Phosphatase 66, Total Creatine Kinase 460 H, Total Protein 6.7, Albumin 3.5, Globulin 3.2, Albumin/Globulin Ratio 1.1, TSH 1.300 04/01/25 12:55: POC Glucose 113 H 04/01/25 13:10: Lactic Acid 4.4 H*, Urine Color Yellow, Urine Clarity Turbid, Urine pH 7.0, Ur Specific Tolley 1.010, Urine Protein TNP, Urine Glucose (UA) Normal, Urine Ketones Negative, Urine Occult Blood 250 H, Urine Nitrite Negative, Urine Bilirubin Negative, Urine Urobilinogen Normal, Ur Leukocyte Esterase 500 H, Urine RBC 0 SEEN, Urine WBC >100 SEEN, Ur Squamous Epith Cells 0 SEEN, Urine Bacteria 0 SEEN, Urine Mucus 0 SEEN, U Random Total Protein 73.6 H 04/01/25 14:40: PT 17.2 H, INR 1.4, APTT 29.7 04/01/25 18:21: Lactic Acid 4.8 H*, Troponin T High Sens 324 H* 04/01/25 18:51: POC Glucose 85 04/01/25 20:07: Troponin T Hi Sens 2 Hr 312 H* 04/02/25 00:11: POC Glucose 115 H 04/02/25 04:18: WBC 30.6 H*, RBC 3.86 L, Hgb 11.9 L, Hct 36.6 L, MCV 94.8, MCH 30.8, MCHC 32.5, RDW Std Deviation 47.9 H, RDW Coeff of Tiffany 13.9, Plt Count 208, MPV 9.8, Immature Gran % (Auto) 0.700, Neut % (Auto) 85.6 H, Lymph % (Auto) 9.1 L, [place] % (Auto) 4.0, Eos % (Auto) 0.0, Baso % (Auto) 0.6, Absolute Neuts (auto) 26.1 H, Absolute Lymphs (auto) 2.77, Nucleated RBC % 0, Diff Path Review May foll, Toxic Vacuolation 1+, Platelet Estimate ADEQUATE, Plt Morphology Comment LARGE, RBC Morphology NORM C+C, Sodium 141, Potassium 4.1, Chloride 110 H, C arbon Dioxide 19.3 L, Anion Gap 12, BUN 25 H, Creatinine 1.31 H, Estim Creat Clear Calc 33.43 L, Est GFR (MDRD) Non-Af 40 L, BUN/Creatinine Ratio 18.9, G lucose 125 H, Hemoglobin A1c 5.8 H, Calcium 7.8, Triglycerides 154, Cholesterol 120, LDL Cholesterol, Calc 64, VLDL Cholesterol 31, HDL Cholesterol 25 L, Cholesterol/HDL Ratio 4.84, Free T4 1.30 04/02/25 05:52: POC Glucose 92 Micro: Microbiology 04/01/25 13:10 Urine Catheter - Mcbride Urine Culture - Preliminary GNR lactose price checker 04/01/25 13:59 Blood Culture (Wb) - Anticubital Right Blood Culture - Preliminary 04/01/25 13:45 Blood Culture (Wb) - Anticubital Right Blood Culture - Preliminary 04/01/25 19:07 Nasal Secretion MRSA (PCR) - Final 04/01/25 17:15 Mucosa - Nasopharyngeal Respiratory Panel (PCR) - Final 04/01/25 13:10 Urine Catheter - Catheter Legionella Antigen - Final 04/01/25 13:10 Urine Catheter - Catheter Streptococcus pneumoniae Antigen (M - Final 04/01/25 13:10 Mucosa - Nose SARS-CoV-2, Influenza & RSV (PCR) - Final Rhythm Strip Rhythm Strip: Sinus Tach Rate: 112 Ectopy: None Imaging Radiology Impression Brain CT 04/01/25 12:28 IMPRESSION: No acute intracranial finding. Reading Location: [facility] Chest X-Ray 04/01/25 13:25 IMPRESSION: 1. Slight increased interstitial opacities, which may represent acute pneumonitis/pneumonia on chronic interstitial lung disease. 2. Probable trace pleural effusions. Reading Location: [facility] Abdomen/Pelvis CT 04/01/25 14:48 IMPRESSION: 1. Stone in the left distal ureter measuring 4 mm resulting in [id number] upstream left-sided hydroureteronephrosis. 2. Left adrenal nodule measuring 1.7 cm, likely a benign adenoma. 3. Colonic diverticulosis without evidence of acute diverticulitis. 4. Hydropic gallbladder without radiodense stones or additional findings of acute cholecystitis. 5. Bibasilar reticulations in the lungs. 6. Cardiomegaly. Reading Location: [id number] Brain CT 04/01/25 16:39 IMPRESSION: No acute, large territorial infarction. Reading Location: [id number] Head/Neck CTA 04/01/25 16:39 IMPRESSION: 1. 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 Additionally, there is focal narrowing near the junction of the left V3/V4 segments. Of note, there is right dominant vertebral artery anatomy. Correlate with findings on upcoming MRI. 2. No hemodynamically significant narrowing or occlusion involving the carotid arteries. Of note, there is a tortuous course of the right common carotid artery. 3. Enlarged main pulmonary artery, suggestive of pulmonary hypertension. 4. Peripheral reticulation at the lung apices, partially imaged. Reading Location: [id number] Echocardiogram 04/02/25 05:55 Interpretation Summary Mild generalized LV hypokinesis. Estimated LVEF 45%. Stage II diastolic dysfunction. There is mild biatrial dilatation. Mild focal chordal calcification. Mild mitral valve regurgitation. Severe (4+) tricuspid valve insufficiency. Right ventricular systolic pressure estimated to be 56 mmHg. Mild (1+) aortic valve insufficiency. Mildly dilated aortic root. Ordering Physician: Sonido Bardales Referring Physician: Sonido Bardales Performed By: Jacob Jc RCS Brain MRI 04/02/25 09:00 IMPRESSION: One. No evidence of acute intracranial infarction. Two. Absent flow void in the left vertebral artery consistent with obstruction. Three. Cerebral atrophy. Four. Other findings as noted. Reading Location: [id number] Active Medications Active Medications Active Medications: Current Medications Generic Name Dose Route Start Last Admin Trade Name Freq PRN Reason Stop Dose Admin Acetaminophen 650 mg 04/01/25 17:12 Acetaminophen 325 Mg Tablet PO Q4H PRN PRN Pain 1-10 Or Fever>99.6 Aspirin 81 mg 04/03/25 08:00 04/02/25 11:20 Aspirin 81 Mg Tab.Chew PO 81 mg BREAKFAST SHANDA Administration Atorvastatin Calcium 80 mg 04/01/25 22:00 04/01/25 21:28 Atorvastatin Calcium 80 Mg Tablet PO Not Given QHS SHANDA Enoxaparin Sodium 40 mg 04/01/25 15:20 04/02/25 11:20 Enoxaparin 40 Mg/0.4 Ml Syringe SC 40 mg Q24 SHANDA Administration Glucagon 1 mg 04/01/25 17:20 Glucagon 1 Mg/Ml Syringe IM X1 PRN Hypoglycemia Protocol Hydralazine HCl 5 mg 04/01/25 17:12 Hydralazine 20 Mg/Ml Vial IV 04/02/25 17:12 Q30M PRN maintain BP parameters with HR <60 Piperacillin Sod/Tazobactam 50 mls @ 12.5 mls/hr 04/01/25 22:00 04/02/25 10:24 Sod 3.375 gm/ Sodium Chloride IV Infused Q8 SHANDA Infusion Vancomycin IV-PHARMACY TO DOSE 500 mls @ 250 mls/hr 04/01/25 14:25 1 each/ Sodium Chloride IV PRN PRN RX TO DOSE Protocol Vancomycin HCl 1,250 mg/ 275 mls @ 167 mls/hr 04/02/25 15:00 Sodium Chloride IV Q24H SHANDA Pantoprazole Sodium 40 mg/ 100 mls @ 330 mls/hr 04/01/25 17:20 04/02/25 12:14 Sodium Chloride IV Infused Q24 SHANDA Infusion Dextrose 250 mls @ 0 mls/hr 04/01/25 17:20 Dextrose 10%-Water IV .Q0M PRN HYPOGLYCEMIA Protocol As Directed Sodium Chloride 250 mls @ 15 mls/hr 04/01/25 17:51 IV .[id number] PRN Saline Flush Sodium Chloride 250 mls @ 15 mls/hr 04/01/25 17:51 IV .[id number] PRN Additional IVPB Infusion Norepinephrine Bitartrate 8 mg 250 mls @ 9.375 mls/hr 04/02/25 00:10 04/02/25 09:30 / Sodium Chloride CONT INF 0 mcg/min .[id number] SHANDA 0 mls/hr Titration Protocol 5 MCG/MIN Labetalol HCl 10 - 20 mg 04/01/25 17:12 Labetalol 20 Mg/4 Ml Vial IV 04/02/25 17:12 Q10M PRN PRN maintain BP parameters with HR >/=60 Levothyroxine Sodium 75 mcg 04/02/25 06:00 04/02/25 05:03 Levothyroxine 75 Mcg Tablet PO Not Given [id number] SHANDA Levothyroxine Sodium 50 mcg 04/06/25 06:00 Levothyroxine 50 Mcg Tablet PO [id number]@0600 SHANDA Prochlorperazine Edisylate 5 mg 04/01/25 16:35 Prochlorperazine 10 Mg/2 Ml Vial IV Q4H PRN PRN Breakthrough Nausea/Vomiting Senna/Docusate Sodium 2 tablet 04/01/25 16:35 Senna/Docusate Sodium 1 Tablet PO BID PRN PRN Constipation Sodium Chloride 10 - 40 ml 04/01/25 17:51 0.9% Saline Lock 10 Ml Syringe IV UD PRN SALINE FLUSH Vancomycin Protocol 1 lab 04/03/25 13:30 Vancomycin Trough/Random Due 04/03/25 15:30 DAILY SHANDA NIHSS NIHSS Nursing Documentation NIHSS Nursing Documentation: NIHSS: Ischemic Stroke/TIA Start: 04/01/25 17:12 Text: For PCU Patients: NIH and Neuro Check every 4 Status: Active hours, PRN and with change in RN caregiver. Freq: [id number] Protocol: Activity Type Activity Date Activity User E-sign Co-sign Detail Recorded Client Recorded Date Recorded By Document 04/01/25 18:00 ARB [id number] 04/01/25 18:48 ARB 04/01/25 18:00 NIH Stroke Scale [NIHSS] A score of 0 is normal or asymptomatic . Total possible score is 42. Inpatient: RN or Physician to activate a stroke alert for onset of new stroke symptoms or with NIHSS increase >/= 3 points. Following change in neurological status, NIHSS will be performed per physician order or more frequently PRN. -1a. Level of Consciousness 0 - Alert; keenly responsive -1b. LOC Questions 1 - Answers ONE question correctly -1c. LOC Commands 0 - Performs BOTH tasks correctly -2. Best Gaze 2 - Forced deviation, -3. Visual 1 - Partial hemianopia -4. Facial Palsy 1 - Minor paralysis ( flattened nasolabial fold , asymmetry on smiling) -5a. Left Arm 1 - Drift; arm drifts downward but doesn?t hit the bed -5b. Right Arm 0 - No drift; arm holds 90 ( or 45) degrees for full 10 seconds -6a. Left Leg 0 - No drift; leg holds 30- degree position for full 5 seconds -6b. Right Leg 0 - No drift; leg holds 30- degree position for full 5 seconds -7. Limb Ataxia 1 - Present in 1 limb -8. Sensory 0 - Normal; no sensory loss -9. Best Language 2 - Severe aphasia; -10. Dysarthria 0 - Normal -11. Extinction and Inattention 1 - Visual, tactile, auditory, spatial, or personal inattention; -Total 10 Query Text:A score of 0 is normal or asymptomatic. Total possible score is 42 . ED: Notify Physician for NIHSS increase by > / = 3 points. Inpatient: RN or Physician to activate a stroke alert for NIHSS increase of > / = 3 points. NIHSS: Ischemic Stroke/TIA Start: 04/01/25 17:12 Text: For ICU Patients: NIH sroke scale at Status: Active presentation and every 2 hours or with change in RN caregiver Freq: [id number] Protocol: Activity Type Activity Date Activity User E-sign Co-sign Detail Recorded Client Recorded Date Recorded By Document 04/02/25 07:28 [facility] [id number] 04/02/25 07:29 [facility] 04/02/25 07:28 -1a. Level of Consciousness 0 - Alert; keenly responsive -1b. LOC Questions 1 - Answers ONE question correctly -1c. LOC Commands 0 - Performs BOTH tasks correctly -2. Best Gaze 0 - Normal -3. Visual 0 - No visual loss -4. Facial Palsy 0 - Normal symmetrical movements -5a. Left Arm 0 - No drift; arm holds 90 ( or 45) degrees for full 10 seconds -5b. Right Arm 0 - No drift; arm holds 90 ( or 45) degrees for full 10 seconds -6a. Left Leg 0 - No drift; leg holds 30- degree position for full 5 seconds -6b. Right Leg 0 - No drift; leg holds 30- degree position for full 5 seconds -7. Limb Ataxia 0 - Absent -8. Sensory 1 - Mild-to- moderate sensory loss; -9. Best Language 1 - Mild-to- moderate aphasia; -10. Dysarthria 1 = Mild-to- moderate dysarthria; -11. Extinction and Inattention 0 - No abnormality -Total 4 Query Text:A score of 0 is normal or asymptomatic. Total possible score is 42 . ED: Notify Physician for NIHSS increase by > / = 3 points. Inpatient: RN or Physician to activate a stroke alert for NIHSS increase of > / = 3 points.
--- NOTE | 2025-04-02 13:50 | SP.MBSS_ITS ---
Modified Barium Swallow Patient Information Study Date: 04/02/25 Study Time: 13:15 Direct Billable Minutes: 81 Total Minutes procedure & reportin Diagnosis: GERD K21.9 Referring Physician: Tanvi Johnson Reason for Referral: Assess swallow function, assess risk for aspiration, and determine recommendations for least restrictive diet textures and compensatory strategies to improve safety of swallow. Medical History: PMH: Anxiety, Hypothyroidism, GERD, Interstitial lung disease, HTN, Breast cancer metastasized to bone - See EMR for full PMH. The patient presented to [facility] ED 04/01/2025 found unresponsive in the morning by her daughter. EMS was called. Per EMS, initially she was unable to speak but she became more responsive. Pt was reporting headache, hypotensive, tachycardic. UA concerning for recurrent UTI. She was started on IVF and empiric abx and became slightly more responsive. However, she was then also noted to have some mild L sided weakness and dysarthria prompting code stroke to be called. ST consulted as part of CVA work up. At time of ST evaluation, pt was NIH of 4 and NPO, awaiting ST to evaluate swallowing prior to diet advancement. The patient has persisting stroke symptoms of aphasia and dysarthria, as well. BSE completed 04/02/25 and revealed mild oropharyngeal dysphagia and recommended Easy to Chew textures / Thin liquids w/ plan for this MBSS to rule out concern for silent aspiration given fluctuating RR during BSE and nose running. 04/01/2025 Head/Neck CTA: ?Impression: 1. 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 Additionally, there is focal narrowing near the junction of the left V3/V4 segments. Of note, there is right dominant vertebral artery anatomy. Correlate with findings on upcoming MRI. 2. No hemodynamically significant narrowing or occlusion involving the carotid arteries. Of note, there is a tortuous course of the right common carotid artery. 3. Enlarged main pulmonary artery, suggestive of pulmonary hypertension. 4. Peripheral reticulation at the lung apices, partially imaged.? 04/02/2025 Brain MRI: ?One. No evidence of acute intracranial infarction. Two. Absent flow void in the left vertebral artery consistent with obstruction. Three. Cerebral atrophy. Four. Other findings as noted.? Of note, she was also hospitalized at OSH abt 1 month ago for PNA. She takes hormone therapy for her breast cancer currently but no other recent therapies. Current Diet Ordered: Easy to Chew textures / Thin liquids Dentition: Natural Teeth and Missing Teeth Mental Status: Impaired (Confusion and aphasia) Respiratory Status: Oxygenating on Room Air Penetration-Aspiration Scale Penetration-Aspiration Scale: OBJECTIVE ASSESSMENT OF SWALLOW FUNCTION (QUANTITATIVE ? PER TRIAL): PENETRATION / ASPIRATION SCALE (TELLEZ): 1 = does not enter airway 2 = enters airway/above vocal folds/ejected 3 = enters airway/above vocal folds/not ejected 4 = enters airway/contacts vocal folds/ejected 5 = enters airway/contacts vocal folds/not ejected 6 = enters airway/below vocal folds/ejected 7 = enters airway/below vocal folds/not ejected despite effort 8 = enters airway/below vocal folds/no effort VIDEOFLOROSCOPIC SCALE SCORE (TELLEZ): Grade I = aspiration of material that has penetrated into the laryngeal vestibule, intact cough reflex Grade II = aspiration < 10 % of the bolus, intact cough reflex Grade III = aspiration of < 10 % of the bolus, reduced cough reflex or aspiration of > 10 % of the bolus, intact cough reflex Grade IV = aspiration of > 10 % of the bolus, reduced cough reflex Penetration-Aspiration Scale Score Thin Liquid via teaspoon: Result: 1= does not enter airway Thin Liquid via teaspoon Trial 2: Result: 2= enter airway/above vocal folds/ejected Thin Liquid via sequential sips: cup: Result: 1= does not enter airway [place] Thick Liquid via small single sip: cup: Result: 1= does not enter airway Pudding via teaspoon: Result: 1= does not enter airway 1/2 Cookie: Result: 1= does not enter airway Comment: Esophageal screen - Mild retention of barium coated cookie in the lower esophagus. Thin Liquid via single sip: straw: Result: 1= does not enter airway Comment: Esophageal screen - Mild retention of barium in the middle esophagus. Oral Phase Labial Seal: No Labial Escape Tongue Control During Bolus Hold: Posterior escape of greater than half of bolus Bolus Preparation/Mastication: Disorganized chewing/mashing with solid pieces of bolus unchewed (small pieces of cookie un-chewed) Bolus Transport/Lingual Motion: Slowed tongue motion Oral Residue: Trace residue lining oral structures Pharyngeal Phase Initiation of Pharyngeal Swallow: Bolus head in pyriforms Soft Palate Elevation: Trace column of contrast/air between soft palate and pharyngeal wall Laryngeal Elevation: Comp. Superior move thyroid cart w/comp. apprx arytenoid cart-epig pet Anterior Hyoid Excursion: Partial anterior movement Epiglottic Movement: Complete inversion Laryngeal Vestibule Closure at Height of Swallow: Incomplete; narrow column of air/contrast in laryngeal vestibule Pharyngeal Stripping Wave: Present - diminished Pharyngoesophageal Segment Opening: Complete distension and complete duration; no obstruction of flow Tongue Base Retraction: Narrow column of contrast between tongue base & post. pharyngeal wall Pharyngeal Residue: Collection of residue within or on pharyngeal structures Esophageal Phase Esophageal Clearance: Esophageal retention Diagnosis/Impression Diagnosis: Mild oropharyngeal dysphagia R13.12 Impression: The oral phase is primarily marked by... -Posterior loss of >1/2 of liquids to the pharynx prior to swallow onset. Thin liquid by tsp Trial 2 spilled to the laryngeal vestibule prior to swallow onset. -Slow tongue motion for A-P transport. -Decreased and very prolonged mastication. Small pieces of cookie appeared un- chewed. The pharyngeal phase is primarily marked by... -Delayed swallow onset. -Mildly decreased pharyngeal motility due to decreased TB retraction and pharyngeal stripping wave. -No aspiration observed. Laryngeal penetration of thin by tsp w/ full ejection. The esophageal phase is primarily marked by... -Mild retention of pudding and liquids in the esophagus. No retrograde flow. Recommendations Diet: Easy to Chew Textures and Thin Liquids Comment: Meds whole in applesauce Compensatory Strategies: Small Bites, Small Sips, Slow Rate, Sitting upright and Remain sitting upright for 30 minutes after PO intake Supervision: Distant Supervision Recommend Repeat Modified Barium Swallow: No Need for Skilled Speech Therapy Services: Yes Comment: -Aphasia and speech production assessments to set additional goals to POC as needed. -Train the patient in use of strategies to decrease risk for aspiration. -Ongoing assessment of diet tolerance of recommended textures. -Train the patient in oropharyngeal exercise program to improve bolus control, swallow onset, and pharyngeal motility (lingual resistance, Matthew, effortful swallow). Education Completed: 1. Described result of evaluation. Comment: No immediate GI consult recommended; however, if increased concern for worsening s/s of reflux, would consider GI consult. Status Active ST Patient: Active Contact Information [facility] Speech Therapy:: Loni Monreal M.A. CCC-FISH PITCHER? Speech-Language Pathologist?? [facility] [address] [place] [address]? [email or web address]?? [phone]
--- NOTE | 2025-04-02 14:08 | CASEMGMT ---
Social Work SW created in [facility], for pt if needed, a list of jail facilities and a list of hospital based rehabs of facilities in network w/pt's insurance, in pt's preferred geographic area and complete w/quality and resource use data. AMANDA LemosS
--- NOTE | 2025-04-02 14:57 | CHAPLAIN ---
Type of Pastoral Visit ___ Initial Visit ___ Follow-up Visit ___ On-call Visit ___ General Patient Visit ___ Spiritual Assessment ___ Family Conference ___ Bereavement ___ Rapid Response ___ Code Blue ___ Other (describe below) Pastoral Care Referral From ___ Patient ___ Family ___ Nurse ___ Physician ___ Sock Ironer ___ Eeler ___ Other (describe below) Sacrament/Intervention ___ Active listening ___ Anointing ___ Pentecostalism ___ Bereavement ___ Communion ___ Ijeoma exploration ___ ___ Life review ___ Prayer ___ Reconciliation ___ Sacrament of Sick ___ Supportive presence ___ Wedding ___ Other (describe below) Pastoral Comments patient was being taken from the room as this pull worker approached; pt is to undergo procedure
[2025-04-02] MEDS: Vancomycin HCl 1,250 MG in 0.9% Normal Saline (250mL Bag) 250 ML 167 MG IV (15:30)
--- NOTE | 2025-04-02 15:48 | CASEMGMT ---
YONY STROUD Assessment Face to Face with patient for initial transition planning/care coordination assessment. YONY STROUD introduced self and role at [facility]. Pt is A&Ox1 to self only. Pt's daughter (Kasia) at bedside and willing to help answer questions for initial assessment. Kasia states that she is the pt's HCPOA. Care providers, pharmacy, and demographics verified. Admitting dx: Sepsis/ Unresponsiveness. Stroke Alert. LACE Strata: 2 PCP: Julissa Ariza Specialists: Neurology, Cardiology, and Pulmonology through [facility]. Cannot recall names. Preferred Pharmacy: [facility] Insurance: [employer] A/B, [employer] Prescription Benefit: Yes LNOK: Kasia Lowe (Daughter), Albania Lowe (GD) Living Arrangements: Pt lives with her daughter (Kasia) in a trailer with a ramp to enter ADLs/IADLs: Kasia states that she helps the pt as well as the charge aide the pt is active with (MWF x 3 hours/day). Transportation: [facility] DME: Medical Alert system. FWW. Extended tub bench. W/C. HHC/SNF: Reports HHC through [facility] x 2 years ago. Denies SNF history Pt?s goal: TBD Plan: TBD. Anticipate SNF vs skilled HHC. PT/OT and ST are following. CM to follow pt's progression in the hospital to help decipher safe DC planning as the pt's daughter states that it is too early to tell what the pt will need at the time of DC. Kasia states that she does not feel safe bringing the pt back home in her current condition. CM to follow. Pt's daughter denies further questions or concerns at this time. Rahul Bower RN, CM
[2025-04-02] MEDS: Acetaminophen 325 MG Tablet 650 MG PO (19:51)
[2025-04-02] MEDS: Atorvastatin Calcium 80 MG Tablet PO (19:52)
[2025-04-02] MEDS: Norepinephrine 8 MG in 0.9% Normal Saline (250mL Bag) 242 ML 1.9 MG CONT INF (22:07)
[2025-04-03] VITALS (42 sets, daily range): BP systolic 86–125; BP diastolic 48–89; PULSE 66–101; RESP 17–30; TEMP 36.6–36.9; O2SAT 92–100; BMI 32.1
[2025-04-03 00:33] LABS: Bedside Glucose 79 mg/dL (74-106)
[2025-04-03 03:25] LABS: Absolute Lymphocyte Count 2.81 X10^3/uL (0.83-4.51); Absolute Neutrophil Count 12.6 X10^3/uL (2.0-7.7); Basophil# 0.13 X10^3/uL; Basophil% 0.8 % (0-1); Eosinophil# 0.42 X10^3/uL; Eosinophils% 2.5 % (0-5); Hematocrit 35.5 % (37-47); Hemoglobin 11.3 g/dL (12.0-15.0); Lymphocyte # 2.81 X10^3/ul (0.83-4.51); Lymphocyte % 16.6 % (19-41); Mean Corp Hgb Conc 31.8 g/dL (32-36); Mean Corpuscular Hgb 30.4 pg (27.0-32.0); Mean Corpuscular Volume 95.4 fL (81-99); Mean Platelet Vol. 10.3 fl (6.2-12.0); Monocyte# 0.94 X10^3/uL; Monocyte% 5.5 % (0-10); NRBC Flagged by Analyzer 0 % (0-5); Neutrophil # 12.56 X10^3/uL (2.7-7.7); Neutrophil % 74.1 % (47-70); Platelet Count 158 K/mm3 (150-450); RBC Distribution Width CV 13.9 % (11.6-14.6); RBC Distribution Width SD 48.4 fl (35.1-43.9); Red Blood Count 3.72 M/mm3 (4.2-5.4); White Blood Count 16.9 K/mm3 (4.4-11.0)
[2025-04-03 04:17] LABS: Vancomycin, Trough Level 21.2 ug/mL (5.0-15.0)
[2025-04-03 04:18] LABS: Anion Gap 10 (5-15); BUN 22 mg/dL (4-19); BUN/Creat Ratio 18.6 RATIO (10-20); Carbon Dioxide 21.1 mmol/L (21.0-32.0); Chloride 110 mmol/L (98-108); Creatinine, Serum 1.19 mg/dL (0.70-1.20); EST Glomerular Filtration Rate 45 (>60); Estimated Creatinine Clearance 36.42 ml/min (50-250); Glucose 112 mg/dL (70-99); Potassium 3.5 mmol/L (3.3-5.1); Sodium Level 142 mmol/L (133-145)
[2025-04-03] MEDS: Piperacil/Tazobactam 3.375 GM in 0.9% Normal Saline (50mL MB+) 50 ML IV ×3 (05:04→21:39)
[2025-04-03 05:24] LABS: Bedside Glucose 84 mg/dL (74-106)
[2025-04-03] MEDS: Levothyroxine 75 MCG Tablet PO (06:58)
[2025-04-03] MEDS: Aspirin 81 MG TAB.CHEW PO (08:59)
[2025-04-03] MEDS: Enoxaparin 40 MG/0.4 ML Syringe SC (08:59)
[2025-04-03] MEDS: Midodrine HCl 5 MG Tablet 10 MG PO ×3 (08:59→17:03)
--- NOTE | 2025-04-03 09:13 | PN.CC_ITS ---
Assessment & Plan Assessment/Plan (1) Septic shock: PLAN: Plan RECOMMENDATIONS: 1. Continue to wean Levophed to maintain a mean arterial pressure at or above 65 mmHg. 2. Start scheduled midodrine as ordered. 3. Continue antimicrobials. 4. Encourage incentive spirometer use and mobilize patient as tolerated. 5. Dietary advancement per speech therapy. 6. Encourage incentive spirometer use and mobilize patient as tolerated. IMPRESSIONS: 1. Gram-negative septic shock The patient presented to the hospital with gram-negative bacteremia in the setting of Klebsiella urinary tract source of infection. The patient has been adequately volume resuscitated and is currently being weaned from vasopressor support. Will plan to initiate scheduled midodrine today to help facilitate weaning from Levophed. In the interim, continue antimicrobial therapy. 2. Toxic/metabolic encephalopathy Likely related to presenting septic shock. However, given presenting discerns for CVA, CT head along with CTA head and neck was performed. MRI brain showed no evidence of acute infarction. 3. History of CHF/metastatic breast cancer to bone/brain/history of ILD/anxiety/hypothyroidism Complicates care, management, recovery and prognosis. Continue supportive measures as noted above. TIME: 31 minutes of critical care time, independent of procedures, was spent addressing the patient's septic shock, acute encephalopathy, review of all data and collaboration with the care team. Subjective Subjective The patient was seen and examined at the bedside this morning. Events from the last 24 hours have been reviewed. Although the patient was initially weaned off of Levophed yesterday, she had to be restarted on low-dose vasopressor support overnight. Levophed requirement this morning is 4 mcg/min. She is documented to be overall net +4.4 L for the hospitalization. White blood cell count is significantly improved. Creatinine is stable at 1.19. Objective Data Objective Data The patient's most recent lab work, culture data and imaging studies have all been personally reviewed. Strep and urine Legionella antigens were negative. Respiratory viral panel was negative. Preliminary blood cultures are positive for gram-negative rods, lactose area forester. Urine culture was positive for Klebsiella aerogenes. Vital Signs: Vital Signs Temp Pulse Resp BP Pulse Ox O2 Del Method O2 Flow Rate 98 F 88 21 H 114/84 H 100 Nasal Cannula 2 04/03/25 05:12 04/03/25 07:00 04/03/25 05:12 04/03/25 07:00 04/03/25 07:48 04/03/25 07:48 04/03/25 07:48 FiO2 100 04/03/25 02:00 Oxygen Flow Rate (L/min) 2 Oxygen Delivery Method Nasal Cannula Weight: 181 lb 3.52 oz Body Mass Index (BMI) 32.1 Intake & Output: Intake and Output for Last 24 Hours 04/01/25 04/02/25 04/03/25 23:59 23:59 23:59 Intake Total 4740 / 4740 1427.00 / 1428.40 100.12 / 100.12 Output Total 600 / 600 600 / 600 650 / 650 Balance 4140 / 4140 827.00 / 828.40 -549.88 / -549.88 Lab / Micro Data Attestation: I reviewed the patient's lab results. 04/03/25 03:15 04/03/25 03:15 Labs: Laboratory Results - last 24 hr 04/03/25 00:14: POC Glucose 79 04/03/25 03:15: WBC 16.9 H, RBC 3.72 L, Hgb 11.3 L, Hct 35.5 L, MCV 95.4, MCH 30.4, MCHC 31.8 L, RDW Std Deviation 48.4 H, RDW Coeff of Tiffany 13.9, Plt Count 158, MPV 10.3, Immature Gran % (Auto) 0.500, Neut % (Auto) 74.1 H, Lymph % (Auto) 16.6 L, Nobles % (Auto) 5.5, Eos % (Auto) 2.5, Baso % (Auto) 0.8, Absolute Neuts (auto) 12.6 H, Absolute Lymphs (auto) 2.81, Nucleated RBC % 0, Sodium 142, Potassium 3.5, Chloride 110 H, Carbon Dioxide 21.1, Anion Gap 10, BUN 22 H, Creatinine 1.19, Estim Creat Clear Calc 36.42 L, Est GFR (MDRD) Non-Af 45 L, BUN/Creatinine Ratio 18.6, Glucose 112 H, Calcium 8.0, Vancomycin Trough 21.2 H 04/03/25 05:03: POC Glucose 84 Micro: Microbiology 04/01/25 13:45 Blood Culture (Wb) - Anticubital Right Blood Culture - Preliminary GNR lactose area forester 04/01/25 13:59 Blood Culture (Wb) - Anticubital Right Blood Culture - Preliminary GNR lactose area forester 04/01/25 13:10 Urine Catheter - Mcbride Urine Culture - Preliminary Klebsiella aerogenes 04/01/25 19:07 Nasal Secretion MRSA (PCR) - Final 04/01/25 17:15 Mucosa - Nasopharyngeal Respiratory Panel (PCR) - Final 04/01/25 13:10 Urine Catheter - Catheter Legionella Antigen - Final 04/01/25 13:10 Urine Catheter - Catheter Streptococcus pneumoniae Antigen (M - Final 04/01/25 13:10 Mucosa - Nose SARS-CoV-2, Influenza & RSV (PCR) - Final Radiography Diagnostic Testing: Radiology Impression Echocardiogram 04/02/25 05:55 Interpretation Summary Mild generalized LV hypokinesis. Estimated LVEF 45%. Stage II diastolic dysfunction. There is mild biatrial dilatation. Mild focal chordal calcification. Mild mitral valve regurgitation. Severe (4+) tricuspid valve insufficiency. Right ventricular systolic pressure estimated to be 56 mmHg. Mild (1+) aortic valve insufficiency. Mildly dilated aortic root. Ordering Physician: Sonido Bardales Referring Physician: Sonido Bardales Performed By: Jacob Jc, [facility] Brain MRI 04/02/25 09:00 IMPRESSION: One. No evidence of acute intracranial infarction. Two. Absent flow void in the left vertebral artery consistent with obstruction. Three. Cerebral atrophy. Four. Other findings as noted. Reading Location: [id number] Rhythm Strip Rhythm Strip: Sinus Tach Rate: 112 Ectopy: None Physical Exam Const alert, oriented x3 and no apparent distress General Appearance: cooperative and frail HEENT normocephalic and head/scalp atraumatic Eyes PERRL, EOMs intact bilaterally and conjunctivae normal Neck supple General: trachea midline Chest inspection of chest normal Resp normal respiratory effort Auscultation: rales and diminished lung sounds Cardio regular rate and regular rhythm GI normal to inspection, nondistended, normoactive bowel sounds Extremity no clubbing, cyanosis or edema Skin no rashes or lesions noted Neuro CN's II-XII intact bilaterally and no focal motor deficits Psych cooperative and affect normal Charges/Coding Procedures Hospitalists Procedures: 30078 Critical Care 1st Hr
[2025-04-03] MEDS: Pantoprazole Sodium 40 MG in 0.9% Normal Saline (100mL MB+) 100 ML 330 MG IV (10:08)
--- NOTE | 2025-04-03 14:16 | PN_ITS ---
Subjective Subjective Patient seen and examined. She felt well and had no active complaints today. She remains on levophed this morning because her BP is still running low. Objective Data Objective Data Vital Signs: Vital Signs Temp Pulse Resp BP Pulse Ox O2 Del Method O2 Flow Rate 97.9 F 90 27 H 89/53 L 97 Room Air 2 04/03/25 12:50 04/03/25 13:00 04/03/25 13:00 04/03/25 13:45 04/03/25 13:00 04/03/25 13:00 04/03/25 07:48 FiO2 100 04/03/25 02:00 Oxygen Flow Rate (L/min) 2 Oxygen Delivery Method Room Air Weight: 181 lb 3.52 oz Body Mass Index (BMI) 32.1 Intake & Output: Intake and Output for Last 24 Hours 04/01/25 04/02/25 04/03/25 23:59 23:59 23:59 Intake Total 4740 / 4740 1427.00 / 1428.40 283.29 / 283.29 Output Total 600 / 600 600 / 600 650 / 650 Balance 4140 / 4140 827.00 / 828.40 -366.71 / -366.71 Lab / Micro Data 04/03/25 03:15 04/03/25 03:15 Labs: Laboratory Results - last 24 hr 04/03/25 00:14: POC Glucose 79 04/03/25 03:15: WBC 16.9 H, RBC 3.72 L, Hgb 11.3 L, Hct 35.5 L, MCV 95.4, MCH 30.4, MCHC 31.8 L, RDW Std Deviation 48.4 H, RDW Coeff of Tiffany 13.9, Plt Count 158, MPV 10.3, Immature Gran % (Auto) 0.500, Neut % (Auto) 74.1 H, Lymph % (Auto) 16.6 L, [place] % (Auto) 5.5, Eos % (Auto) 2.5, Baso % (Auto) 0.8, Absolute Neuts (auto) 12.6 H, Absolute Lymphs (auto) 2.81, Nucleated RBC % 0, Sodium 142, Potassium 3.5, Chloride 110 H, Carbon Dioxide 21.1, Anion Gap 10, BUN 22 H, Creatinine 1.19, Estim Creat Clear Calc 36.42 L, Est GFR (MDRD) Non-Af 45 L, BUN/Creatinine Ratio 18.6, Glucose 112 H, Calcium 8.0, Vancomycin Trough 21.2 H 04/03/25 05:03: POC Glucose 84 Micro: Microbiology 04/01/25 13:10 Urine Catheter - Mcbride Urine Culture - Final Klebsiella aerogenes 04/01/25 13:45 Blood Culture (Wb) - Anticubital Right Blood Culture - Preliminary GNR lactose painter ordnance 04/01/25 13:59 Blood Culture (Wb) - Anticubital Right Blood Culture - Preliminary GNR lactose painter ordnance 04/01/25 19:07 Nasal Secretion MRSA (PCR) - Final 04/01/25 17:15 Mucosa - Nasopharyngeal Respiratory Panel (PCR) - Final 04/01/25 13:10 Urine Catheter - Catheter Legionella Antigen - Final 04/01/25 13:10 Urine Catheter - Catheter Streptococcus pneumoniae Antigen (M - Final 04/01/25 13:10 Mucosa - Nose SARS-CoV-2, Influenza & RSV (PCR) - Final Rhythm Strip Rhythm Strip: Sinus Tach Rate: 112 Ectopy: None Physical Exam Const alert, oriented x3 and no apparent distress Constitutional Narrative: frail General Appearance: cooperative HEENT normocephalic, head/scalp atraumatic, moist oral mucous membranes and oropharynx normal Eyes PERRL and EOMs intact bilaterally Neck no lymphadenopathy and supple Lymph Lymphatic: no lymphadenopathy noted and no lymphedema noted Resp Resp Narrative: diminished breath sounds bibasally, no wheezes or crackle. On room air. Cardio regular rate, regular rhythm, S1 normal heart sound, S2 normal heart sound and no murmurs GI normal to inspection, nondistended, normoactive bowel sounds, soft to palpation and non-tender Extremity normal capillary refill, no clubbing, cyanosis or edema and no calf tenderness General Extremity: no tenderness to palpation of joints or extremities Neuro no focal motor deficits and no sensory deficits noted Motor Exam: general weakness Psych thought process normal, cooperative and affect normal Appearance: appropriate Assessment & Plan Assessment/Plan (1) Acute lactic acidosis: (2) Septic shock: (3) Leukocytosis: PLAN: Plan #Septic shock due to UTI * She was tachycardic and tachypneic on admission with concern for UTI and pneumonia. Urinalysis did show evidence of UTI and CT of the abdomen and pelvis did not show any evidence of pyelonephritis * Respiratory panel for COVID, influenza and flu were negative. Chest x-ray showed increased interstitial opacity more in the left lung base with concern for pneumonia. * On broad-spectrum antibiotics with IV vancomycin and Zosyn. Blood and urine cultures pending. * she was hydrated with IVF but required vasopressors. She was quickly weaned off of this though. * blood cultures positive for gram negative rods. ID on board. * WBC is down to 16.9 today. She remains on Levophed today though due to the hypotension. * currently on midodrine. #Acute encephalopathy * Largely resolved. Stroke alert was called during this admission. CT of the brain did not show any acute intracranial pathology. CTA of the head and neck showed no hemodynamically significant stenosis. 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 * On p.o. aspirin 81 mg daily. #Chronic heart failure with elevated troponins. * 2D echo showed mild generalized left ventricular hypokinesis with EF of 45% and stage II diastolic dysfunction as well as mild biatrial dilatation and mild mitral valve regurgitation with severe 4+ tricuspid valve insufficiency and RVSP of 56 mmHg * not on IV lasix due to BP running low * There is no previous echo in the system. Will consult cardiology due to the ventricular hypokinesis * not being diuresed due to shock, requiring vasopressors * consult cardiology o/a of low EF and LV hypokinesis. * on entresto, which is on hold. * Troponins were also elevated but trended down to 312 #Hypothyroidism: on synthroid #Interstitial lung disease: stable. Not requiring oxygen #History of breast cancer with mets to bone: s/p right mastectomy. Stable. Follow up with oncology on outpatient basis. #Hypertension: BP meds held. IV hydralazine prn. #GERD and anxiety: on PPI DVT prophylaxis: lovenox Charges/Coding Visit Charges Inpatient E&M: 35656 Subs Hosp L3
--- NOTE | 2025-04-03 15:45 | CHAPLAIN ---
Type of Pastoral Visit _x__ Initial Visit ___ Follow-up Visit ___ On-call Visit ___ General Patient Visit ___ Spiritual Assessment ___ Family Conference ___ Bereavement ___ Rapid Response ___ Code Blue ___ Other (describe below) Pastoral Care Referral From _x__ Patient ___ Family ___ Nurse ___ Physician ___ Respiratory Therapist Assistant ___ Territory Account Representative ___ Other (describe below) Sacrament/Intervention _x__ Active listening ___ Anointing ___ Gnosticism ___ Bereavement ___ Communion _x__ Ijeoma exploration ___ ___ Life review _x__ Prayer ___ Reconciliation ___ Sacrament of Sick _x__ Supportive presence ___ Wedding ___ Other (describe below) Pastoral Comments patient explains her situation and the feelings associated with receiving care; family concerns are mentioned to this associate merchant and the patient requests prayers for them; pt identifies self as a Druze believer and wants prayers and God's will to be done; pt mentions that she will have a birthday this week and how that she is surprised by that blessing
--- NOTE | 2025-04-03 16:47 | PCM.RX.CS ---
Consult Antibiotic Management Pharmacy has been consulted to manage selected antibiotic: Vancomycin Type of Intervention Type of Consult: Follow-up Labs Labs: Sodium 142 mmol/L (133-145) 04/03/25 03:15 Potassium 3.5 mmol/L (3.3-5.1) 04/03/25 03:15 Chloride 110 mmol/L (98-108) H 04/03/25 03:15 Carbon Dioxide 21.1 mmol/L (21.0-32.0) 04/03/25 03:15 Anion Gap 10 (5-15) 04/03/25 03:15 BUN 22 mg/dL (4-19) H 04/03/25 03:15 Creatinine 1.19 mg/dL (0.70-1.20) 04/03/25 03:15 Est GFR (MDRD) Non-Af 45 (>60) L 04/03/25 03:15 BUN/Creatinine Ratio 18.6 RATIO (10-20) 04/03/25 03:15 Glucose 112 mg/dL (70-99) H 04/03/25 03:15 Vancomycin Trough 12.0 ug/mL (5.0-15.0) 04/03/25 16:10 Microbiology Microbiology: Microbiology 04/01/25 13:10 Urine Catheter - Mcbride Urine Culture - Final Klebsiella aerogenes 04/01/25 13:45 Blood Culture (Wb) - Anticubital Right Blood Culture - Preliminary GNR lactose manager account management 04/01/25 13:59 Blood Culture (Wb) - Anticubital Right Blood Culture - Preliminary GNR lactose manager account management 04/01/25 19:07 Nasal Secretion MRSA (PCR) - Final 04/01/25 17:15 Mucosa - Nasopharyngeal Respiratory Panel (PCR) - Final 04/01/25 13:10 Urine Catheter - Catheter Legionella Antigen - Final 04/01/25 13:10 Urine Catheter - Catheter Streptococcus pneumoniae Antigen (M - Final 04/01/25 13:10 Mucosa - Nose SARS-CoV-2, Influenza & RSV (PCR) - Final Pharmacy Plan for Drug Dosing Pharmacy Plan for Drug Dosing: VANCOMYCIN LEVEL RECEIVED Current Vancomycin Dose: 1250MG Q24 Number of Doses Received: 2 Vancomycin Level: 12 MG/DL Hours Since Last Dose: 25 Renal Function: SCr 1.19 mg/dL, CrCl 36 mL/min Renal Function Trend: improving Vancomycin Plan/Comments: 25 hour trough is subtherapeutic at 12 mg/dL (goal 15-20). Will increase dose to 1500mg and get a trough prior to 3rd dose of new regimen. Pending Level: 04/05/25 @ 7213 Pharmacy Service will continue to monitor and adjust dosing as required.
[2025-04-03] MEDS: Vancomycin HCl 1,500 MG in 0.9% Normal Saline (500mL Bag) 500 ML 250 MG IV (17:03)
--- NOTE | 2025-04-03 17:06 | PCM.CONS.C ---
Assessment & Plan Assessment/Plan (1) Septic shock: PLAN: Patient presented with septic shock on 04/01/2025. She is simply found to grow gram-negative rods in her blood. With broad-spectrum antibiotic she is markedly improved she is now been able to be weaned off of vasopressors. She is conversing normally. (2) Hypertension: QUALIFIERS: Hypertension type: primary hypertension Qualified Code(s): I10 - Essential (primary) hypertension PLAN: In the home environment the patient is hypertensive. She will need to be reinstituted on her medical therapy once she has recovered from her sepsis. (3) LV dysfunction: PLAN: Patient has a history of mild LV dysfunction in a global fashion of 45%. She has no prior history to her knowledge of cardiovascular issues however she is on a combination of Entresto furosemide and metoprolol in her home environment. This would suggest that someone had been treating her for LV dysfunction. I recommend we reinstitute her metoprolol first and his blood pressure and heart rate will tolerate add her Entresto back to her medical therapy and then lastly her to furosemide. We will be available if assistance is needed and the patient can follow-up with the [facility] after discharge. PLAN: Plan 1. Home medications as outlined above as tolerated. 2. Will repeat echocardiogram in 6 to 12 weeks after she is back on guideline directed medical therapy. 3. Will need to confirm with family members any cardiovascular history as the patient reports none. HPI Consult Data Date of Consult: 04/03/25 HPI Narrative Reason for Consultation: New LV dysfunction EF 45%. HPI Narrative: MYCHAL DODD, is a 84 F who presents with gram-negative sepsis. The patient was extremely ill disoriented and encephalopathic on Wednesday. She has now been treated with broad-spectrum IV antibiotics and is off pressors as of this evening. Echocardiogram did done on this hospitalization showed left-ventricular global systolic mild dysfunction EF estimated at 45%. There was also stage II diastolic dysfunction. The patient had mild mitral regurgitation with mild biatrial enlargement. She has 4+ tricuspid regurgitation with a pulmonary artery pressure 56. This very well may represent her ongoing pulmonary issues upon presentation. The patient denies any previous cardiac history. However she is on Entresto and metoprolol succinate as well as furosemide in her home environment consistent with being treated for LV dysfunction. There are no old records available in the EMR from cardiology. Currently the patient is resting comfortably in seated position in her bed. She is able to converse normally heart rate is 94 normal sinus rhythm on telemetry. And blood pressures 100 systolic off of pressors. [facility] Medical History Anxiety Hypothyroidism GERD (gastroesophageal reflux disease) Interstitial lung disease Hypertension Breast cancer metastasized to bone Home Medications ?Medication ?Instructions ?Recorded ?Last Taken ?Type omeprazole 20 mg capsule,delayed 20 mg PO DAILY HEARTBURN 01/19/14 Unknown History release cetirizine 10 mg tablet 10 mg PO DAILY ALLERGIES 04/14/21 Unknown History ergocalciferol (vitamin D2) 1,250 50,000 unit PO VILLARREAL SUPPLEMENT 04/14/21 03/25/25 History mcg (50,000 unit) capsule levothyroxine 75 mcg tablet 75 mcg PO MOTUWETH THYROID 04/14/21 Unknown History metoprolol succinate 50 mg 50 mg PO DAILY BLOOD PRESSURE 04/14/21 Unknown History tablet,extended release 24 hr levothyroxine 50 mcg tablet 50 mcg PO SUFRSA THYROID 11/01/22 Unknown History acetaminophen 500 mg tablet 1,000 mg PO Q6H PRN pain 04/01/25 Unknown History albuterol sulfate 90 mcg/actuation 2 inh inhalation Q6H PRN shortness 04/01/25 Unknown History aerosol inhaler (Ventolin HFA) of breath or wheezing exemestane 25 mg tablet 25 mg PO DAILY HORMONE 04/01/25 Unknown History gabapentin 100 mg capsule 100 mg PO DAILY NERVE PAIN 04/01/25 Unknown History ondansetron 4 mg disintegrating 4 mg PO Q6H PRN nausea and vomiting 04/01/25 Unknown History tablet potassium chloride 10 mEq 10 meq PO DAILY SUPPLEMENT 04/01/25 Unknown History tablet,extended release sacubitril 49 mg-valsartan 51 mg 1 tab PO BID BLOOD PRESSURE 04/01/25 Unknown History tablet (Entresto) torsemide 20 mg tablet 10 mg PO DAILY WATER PILL 04/01/25 Unknown History Allergy/AdvReac Type Severity Reaction Status Date / Time tramadol Allergy Other Verified 06/06/23 13:19 tuberculin, purified protein AdvReac Severe Other Verified 06/15/23 13:19 deriva Surgical History History of appendectomy H/O right mastectomy Social History household members: none Smoking Status: Never smoker substance use type: does not use ROS Constitutional Constitutional: Reports as per HPI Eyes Eyes: Reports systems reviewed and no addt'l complaints, except as documented ENT HEENT: Reports systems reviewed and no addt'l complaints, except as documented Cardiovascular Cardiovascular: Reports as per HPI Respiratory/Chest Respiratory/Chest: Reports as per HPI Gastrointestinal Gastrointestinal: Reports systems reviewed and no addt'l complaints, except as documented Genitourinary Genitourinary: Reports as per HPI Musculoskeletal Musculoskeletal: Reports systems reviewed and no addt'l complaints, except as documented Integumentary Integumentary: Reports systems reviewed and no addt'l complaints, except as documented Neurologic Neurologic: Reports as per HPI Psychiatric Psychiatric: Reports as per HPI Hematologic/Lymphatic Hematologic/Lymphatic: Reports systems reviewed and no addt'l complaints, except as documented Allergic/Immunologic Allergic/Immunologic: Reports systems reviewed and no addt'l complaints, except as documented Physical Exam Const alert HEENT normocephalic Eyes EOMs intact bilaterally Neck no JVD Carotids: Negative for bruit Resp normal respiratory effort Auscultation: crackles bilateral base and diminished lung sounds bilateral lower Cardio Rate: regular rate Rhythm: regular rhythm Heart Sounds: S1 normal, S2 normal and murmur systolic I/ soft right sternal border; Negative for click or gallop Extremity General Extremity: edema bilateral lower extremity Details: trace Neuro Neuro Narrative: Alert and oriented x 3. Patient is able to carry on normal conversation discussing family members in detail Psych mental status grossly normal Risk Stratification Risk Stratification Applicable: No Charges/Coding Visit Charges Inpatient E&M: 65031 Init Hosp L3 Objective Data Vital Signs: Vital Signs Temp Pulse Resp BP Pulse Ox O2 Del Method O2 Flow Rate 97.9 F 94 19 H 100/69 94 Room Air 2 04/03/25 12:50 04/03/25 16:00 04/03/25 16:00 04/03/25 16:00 04/03/25 16:00 04/03/25 16:00 04/03/25 07:48 FiO2 100 04/03/25 02:00 Oxygen Flow Rate (L/min) 2 Oxygen Delivery Method Room Air Weight: 181 lb 3.52 oz Body Mass Index (BMI) 32.1 Intake & Output: Intake and Output for Last 24 Hours 04/01/25 04/02/25 04/03/25 23:59 23:59 23:59 Intake Total 4740 / 4740 1427.00 / 1428.40 283.29 / 283.29 Output Total 600 / 600 600 / 600 900 / 900 Balance 4140 / 4140 827.00 / 828.40 -616.71 / -616.71 Lab / Micro Data Attestation: I reviewed the patient's lab results. 04/03/25 03:15 04/03/25 03:15 Labs: Laboratory Results - last 24 hr 04/03/25 00:14: POC Glucose 79 04/03/25 03:15: WBC 16.9 H, RBC 3.72 L, Hgb 11.3 L, Hct 35.5 L, MCV 95.4, MCH 30.4, MCHC 31.8 L, RDW Std Deviation 48.4 H, RDW Coeff of Tiffany 13.9, Plt Count 158, MPV 10.3, Immature Gran % (Auto) 0.500, Neut % (Auto) 74.1 H, Lymph % (Auto) 16.6 L, [place] % (Auto) 5.5, Eos % (Auto) 2.5, Baso % (Auto) 0.8, Absolute Neuts (auto) 12.6 H, Absolute Lymphs (auto) 2.81, Nucleated RBC % 0, Sodium 142, Potassium 3.5, Chloride 110 H, Carbon Dioxide 21.1, Anion Gap 10, BUN 22 H, Creatinine 1.19, Estim Creat Clear Calc 36.42 L, Est GFR (MDRD) Non-Af 45 L, BUN/Creatinine Ratio 18.6, Glucose 112 H, Calcium 8.0, Vancomycin Trough 21.2 H 04/03/25 05:03: POC Glucose 84 04/03/25 16:10: Vancomycin Trough 12.0 Micro: Microbiology 04/01/25 13:10 Urine Catheter - Mcbride Urine Culture - Final Klebsiella aerogenes 04/01/25 13:45 Blood Culture (Wb) - Anticubital Right Blood Culture - Preliminary GNR lactose wildland fire fighter 04/01/25 13:59 Blood Culture (Wb) - Anticubital Right Blood Culture - Preliminary GNR lactose wildland fire fighter Rhythm Strip Rhythm Strip: Sinus Rhythm Rate: 84 Cardiology Labs/Tests 04/03/25 03:15: WBC 16.9 H, RBC 3.72 L, Hgb 11.3 L, Hct 35.5 L, MCV 95.4, MCH 30.4, MCHC 31.8 L, Plt Count 158, MPV 10.3, Immature Gran % (Auto) 0.500, Neut % (Auto) 74.1 H, Lymph % (Auto) 16.6 L, [place] % (Auto) 5.5, Eos % (Auto) 2.5, Baso % (Auto) 0.8, Absolute Neuts (auto) 12.6 H, Nucleated RBC % 0, Sodium 142, Potassium 3.5, Chloride 110 H, Carbon Dioxide 21.1, Anion Gap 10, BUN 22 H, Creatinine 1.19, Est GFR (MDRD) Non-Af 45 L, BUN/Creatinine Ratio 18.6, Glucose 112 H, Calcium 8.0 Rhythm: EKG: ECHO: Stress Test: Cardiac Cath: PCI: CT Surgery: Holter monitor: EPS: PPM: CXR: Chest CT Scan:
[2025-04-03] MEDS: Atorvastatin Calcium 80 MG Tablet PO (21:39)
[2025-04-03] MEDS: Acetaminophen 325 MG Tablet 650 MG PO (23:05)
[2025-04-04] VITALS (22 sets, daily range): BP systolic 90–129; BP diastolic 46–95; PULSE 67–97; RESP 17–26; TEMP 36.4–36.7; O2SAT 93–99; BMI 32.1; BMI 32.8
[2025-04-04] MEDS: Levothyroxine 75 MCG Tablet PO (05:19)
[2025-04-04] MEDS: Piperacil/Tazobactam 3.375 GM in 0.9% Normal Saline (50mL MB+) 50 ML IV ×3 (05:19→21:49)
[2025-04-04 08:08] LABS: Absolute Neutrophil Count 7.4 X10^3/uL (2.0-7.7); Basophil# 0.09 X10^3/uL; Basophil% 0.8 % (0-1); Eosinophil# 0.54 X10^3/uL; Eosinophils% 4.7 % (0-5); Hematocrit 35.1 % (37-47); Hemoglobin 11.8 g/dL (12.0-15.0); Lymphocyte % 24.2 % (19-41); Mean Corp Hgb Conc 33.6 g/dL (32-36); Mean Corpuscular Volume 92.1 fL (81-99); Mean Platelet Vol. 11.4 fl (6.2-12.0); Monocyte# 0.72 X10^3/uL; Monocyte% 6.2 % (0-10); NRBC Flagged by Analyzer 0 % (0-5); Neutrophil # 7.37 X10^3/uL (2.7-7.7); Neutrophil % 63.8 % (47-70); Platelet Count 169 K/mm3 (150-450); RBC Distribution Width CV 13.8 % (11.6-14.6); RBC Distribution Width SD 46.7 fl (35.1-43.9); Red Blood Count 3.81 M/mm3 (4.2-5.4); White Blood Count 11.6 K/mm3 (4.4-11.0)
[2025-04-04] MEDS: Aspirin 81 MG TAB.CHEW PO (08:20)
[2025-04-04] MEDS: Midodrine HCl 5 MG Tablet 10 MG PO ×3 (08:20→17:19)
[2025-04-04] MEDS: Enoxaparin 40 MG/0.4 ML Syringe SC (08:20)
[2025-04-04 08:50] LABS: Anion Gap 11 (5-15); BUN 16 mg/dL (4-19); BUN/Creat Ratio 15.1 RATIO (10-20); Carbon Dioxide 18.7 mmol/L (21.0-32.0); Chloride 109 mmol/L (98-108); Creatinine, Serum 1.05 mg/dL (0.70-1.20); EST Glomerular Filtration Rate 53 (>60); Estimated Creatinine Clearance 41.66 ml/min (50-250); Glucose 80 mg/dL (70-99); Potassium 3.8 mmol/L (3.3-5.1); Sodium Level 138 mmol/L (133-145)
[2025-04-04] MEDS: Pantoprazole Sodium 40 MG in 0.9% Normal Saline (100mL MB+) 100 ML 330 MG IV (09:21)
--- NOTE | 2025-04-04 10:47 | PN.CARD_ITS ---
Subjective Subjective Patient is up in the chair at the bedside in good spirits discussing things with her daughter. The daughter was very informed of reporting to me that the mother has had issues with neurologic surgical interventions and gets confused about her past medical history at times. The daughter reports that she has been followed long-term by [facility] heart failure specialist. She has been on Entresto and her other medical regiment for a long period of time. The daughter reports that she had 2 or 3 mildly leaking valves and some dysfunction of her myocardium which she does not know the numbers. Objective Data Vital Signs: Vital Signs Temp Pulse Resp BP Pulse Ox O2 Del Method O2 Flow Rate 97.8 F 85 25 H 108/68 95 Room Air 2 04/04/25 08:00 04/04/25 10:00 04/04/25 10:00 04/04/25 10:00 04/04/25 10:00 04/04/25 10:00 04/03/25 07:48 FiO2 100 04/03/25 02:00 Oxygen Flow Rate (L/min) 2 Oxygen Delivery Method Room Air Weight: 184 lb 15.485 oz Body Mass Index (BMI) 32.8 Intake & Output: Intake and Output for Last 24 Hours 04/02/25 04/03/25 04/04/25 23:59 23:59 23:59 Intake Total 1427.00 / 1428.40 863.29 / 863.29 200 / 200 Output Total 600 / 600 1100 / 1175 175 / 175 Balance 827.00 / 828.40 -236.71 / -311.71 Lab / Micro Data 04/04/25 07:45 04/04/25 07:45 Labs: Laboratory Results - last 24 hr 04/03/25 16:10: Vancomycin Trough 12.0 04/04/25 07:45: WBC 11.6 H, RBC 3.81 L, Hgb 11.8 L, Hct 35.1 L, MCV 92.1, MCH 31.0, MCHC 33.6 D, RDW Std Deviation 46.7 H, RDW Coeff of Tiffany 13.8, Plt Count 169, MPV 11.4, Immature Gran % (Auto) 0.300, Neut % (Auto) 63.8, Lymph % (Auto) 24.2, [place] % (Auto) 6.2, Eos % (Auto) 4.7, Baso % (Auto) 0.8, Absolute Neuts (auto) 7.4, Absolute Lymphs (auto) 2.80, Nucleated RBC % 0, Sodium 138, Potassium 3.8, Chloride 109 H, Carbon Dioxide 18.7 L, Anion Gap 11, BUN 16, Creatinine 1.05, Estim Creat Clear Calc 41.66 L, Est GFR (MDRD) Non-Af 53 L, BUN/Creatinine Ratio 15.1, Glucose 80, Calcium 8.0 Micro: Microbiology 04/01/25 13:45 Blood Culture (Wb) - Anticubital Right Blood Culture - Final GNR lactose engineer operations and maintenance 04/01/25 13:59 Blood Culture (Wb) - Anticubital Right Blood Culture - Final Klebsiella aerogenes 04/01/25 13:10 Urine Catheter - Mcbride Urine Culture - Final Klebsiella aerogenes Rhythm Strip Rhythm Strip: Sinus Rhythm Rate: 86 Ectopy: None Cardiology Labs/Tests 04/04/25 07:45: WBC 11.6 H, RBC 3.81 L, Hgb 11.8 L, Hct 35.1 L, MCV 92.1, MCH 31.0, MCHC 33.6 D, Plt Count 169, MPV 11.4, Immature Gran % (Auto) 0.300, Neut % (Auto) 63.8, Lymph % (Auto) 24.2, [place] % (Auto) 6.2, Eos % (Auto) 4.7, Baso % (Auto) 0.8, Absolute Neuts (auto) 7.4, Nucleated RBC % 0, Sodium 138, Potassium 3.8, Chloride 109 H, Carbon Dioxide 18.7 L, Anion Gap 11, BUN 16, Creatinine 1.05, Est GFR (MDRD) Non-Af 53 L, BUN/Creatinine Ratio 15.1, Glucose 80, Calcium 8.0 Rhythm: EKG: ECHO: Stress Test: Cardiac Cath: PCI: CT Surgery: Holter monitor: EPS: PPM: CXR: Chest CT Scan: Physical Exam Const alert and oriented x3 HEENT normocephalic Neck no JVD Resp normal respiratory effort Auscultation: crackles bilateral base Cardio Rate: regular rate Rhythm: regular rhythm Heart Sounds: S1 normal, S2 normal and murmur systolic I/ soft right sternal border; Negative for click or gallop Extremity General Extremity: edema bilateral lower extremity Details: trace Neuro Neuro Narrative: Alert and oriented x 3 Psych mental status grossly normal Assessment & Plan Assessment/Plan (1) LV dysfunction: PLAN: Patient apparently has a longstanding history of LV dysfunction. She has been on guideline directed medical therapy for LV recovery titrated to the [facility] heart failure specialist on the main campus. As the patient recovers from her septic shock we should start to reinstitute her guideline directed medical therapy. I would first initiate her metoprolol succinate at 25 mg twice daily. And after blood pressure tolerates that would add back the Entresto at her home dose. This may not be able to be reinstituted until after discharge and she is more stable in her home environment. Diuretic therapy be determined as she recovers from her sepsis. The patient should follow-up with her [facility] school office manager within 7 to 14 days after discharge. If she is unable to obtain that appointment I gave the daughter my card so that we would be willing to see her in our office as a transition of care back to the [facility]. PLAN: Plan 1. Reinstitute guideline directed medical therapy as outlined above. 2. Cardiology will sign off at this point in time. If further assistance is needed please reconsult Dr. Rodriguez will be covering the rest of the week. Charges/Coding Visit Charges Inpatient E&M: 16104 Subs Hosp L2
--- NOTE | 2025-04-04 11:32 | CASEMGMT ---
Addendum entered by Nola Bower 04/04/25 12:41: [facility] returns call and states that they are able to accept with a SOC contingent on pt's DC date. CM to follow. Original Note: YONY STROUD to the pt room at this time to follow up on DC planning. Pt's daughter is at bedside. Pt is A&Ox4. Pt's daughter states that the pt is active with Palliative Care. E-Mail sent to [facility] to notify of admission. This YONY STROUD also appreciated that PT is recommending skilled HHC for the pt. At this time, the pt and the pt's daughter are agreeable to this and decline wanting to review a list of local in network HHC agencies and states that they prefer [facility]. TC to [facility] and referral made for SN, PT, and OT. Awaiting return response. Pt denies further questions or concerns at this time. Tentative plan: Home with the pt's daughter once medically ready with skilled HHC, continuation of Palliative care, & continuation of pvt duty aid (see YONY STROUD assessment).
--- NOTE | 2025-04-04 11:45 | PCM.PROGNOTE ---
Subjective Subjective Patient seen and examined. She complained of rectal pain from hemorrhoids. SHe is off levophed. Review of systems is otherwise negative. Objective Data Objective Data Vital Signs: Vital Signs Temp Pulse Resp BP Pulse Ox O2 Del Method O2 Flow Rate 97.8 F 90 21 H 106/63 99 Room Air 2 04/04/25 08:00 04/04/25 11:00 04/04/25 11:00 04/04/25 11:00 04/04/25 11:00 04/04/25 11:00 04/03/25 07:48 FiO2 100 04/03/25 02:00 Oxygen Flow Rate (L/min) 2 Oxygen Delivery Method Room Air Weight: 184 lb 15.485 oz Body Mass Index (BMI) 32.8 Intake & Output: Intake and Output for Last 24 Hours 04/02/25 04/03/25 04/04/25 23:59 23:59 23:59 Intake Total 1427.00 / 1428.40 863.29 / 863.29 200 / 200 Output Total 600 / 600 1100 / 1175 175 / 175 Balance 827.00 / 828.40 -236.71 / -311.71 Lab / Micro Data 04/04/25 07:45 04/04/25 07:45 Labs: Laboratory Results - last 24 hr 04/03/25 16:10: Vancomycin Trough 12.0 04/04/25 07:45: WBC 11.6 H, RBC 3.81 L, Hgb 11.8 L, Hct 35.1 L, MCV 92.1, MCH 31.0, MCHC 33.6 D, RDW Std Deviation 46.7 H, RDW Coeff of Tiffany 13.8, Plt Count 169, MPV 11.4, Immature Gran % (Auto) 0.300, Neut % (Auto) 63.8, Lymph % (Auto) 24.2, [place] % (Auto) 6.2, Eos % (Auto) 4.7, Baso % (Auto) 0.8, Absolute Neuts (auto) 7.4, Absolute Lymphs (auto) 2.80, Nucleated RBC % 0, Sodium 138, Potassium 3.8, Chloride 109 H, Carbon Dioxide 18.7 L, Anion Gap 11, BUN 16, Creatinine 1.05, Estim Creat Clear Calc 41.66 L, Est GFR (MDRD) Non-Af 53 L, BUN/Creatinine Ratio 15.1, Glucose 80, Calcium 8.0 Micro: Microbiology 04/01/25 13:45 Blood Culture (Wb) - Anticubital Right Blood Culture - Final GNR lactose diamond setter 04/01/25 13:59 Blood Culture (Wb) - Anticubital Right Blood Culture - Final Klebsiella aerogenes 04/01/25 13:10 Urine Catheter - Mcbride Urine Culture - Final Klebsiella aerogenes 04/01/25 19:07 Nasal Secretion MRSA (PCR) - Final 04/01/25 17:15 Mucosa - Nasopharyngeal Respiratory Panel (PCR) - Final 04/01/25 13:10 Urine Catheter - Catheter Legionella Antigen - Final 04/01/25 13:10 Urine Catheter - Catheter Streptococcus pneumoniae Antigen (M - Final 04/01/25 13:10 Mucosa - Nose SARS-CoV-2, Influenza & RSV (PCR) - Final Rhythm Strip Rhythm Strip: Sinus Rhythm Rate: 86 Ectopy: None Physical Exam Const alert, oriented x3 and no apparent distress Constitutional Narrative: frail General Appearance: cooperative HEENT normocephalic, head/scalp atraumatic, moist oral mucous membranes and oropharynx normal Eyes PERRL and EOMs intact bilaterally Neck no lymphadenopathy and supple Lymph Lymphatic: no lymphadenopathy noted and no lymphedema noted Resp Resp Narrative: diminished breath sounds bibasally, no wheezes or crackle. On room air. Cardio regular rate, regular rhythm, S1 normal heart sound, S2 normal heart sound and no murmurs GI normal to inspection, nondistended, normoactive bowel sounds, soft to palpation and non-tender Extremity normal capillary refill, no clubbing, cyanosis or edema and no calf tenderness General Extremity: no tenderness to palpation of joints or extremities Neuro CN's II-XII intact bilaterally, no focal motor deficits and no sensory deficits noted Motor Exam: general weakness Psych thought process normal, cooperative and affect normal Appearance: appropriate Assessment & Plan Assessment/Plan (1) Acute lactic acidosis: (2) Septic shock: (3) Leukocytosis: PLAN: Plan #Septic shock due to UTI She was tachycardic and tachypneic on admission with concern for UTI and pneumonia. Urinalysis did show evidence of UTI and CT of the abdomen and pelvis did not show any evidence of pyelonephritis Respiratory panel for COVID, influenza and flu were negative. Chest x-ray showed increased interstitial opacity more in the left lung base with concern for pneumonia. On broad-spectrum antibiotics with IV vancomycin and Zosyn. Blood and urine cultures pending. she was hydrated with IVF but required vasopressors. She was quickly weaned off of this though. blood cultures positive for gram negative rods. ID on board. WBC is down to 16.9 today. Now off Levophed. currently on midodrine. #Acute encephalopathy Largely resolved. Stroke alert was called during this admission. CT of the brain did not show any acute intracranial pathology. CTA of the head and neck showed no hemodynamically significant stenosis. 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 On p.o. aspirin 81 mg daily. #Chronic heart failure with elevated troponins. 2D echo showed mild generalized left ventricular hypokinesis with EF of 45% and stage II diastolic dysfunction as well as mild biatrial dilatation and mild mitral valve regurgitation with severe 4+ tricuspid valve insufficiency and RVSP of 56 mmHg not on IV lasix due to BP running low There is no previous echo in the system. Will consult cardiology due to the ventricular hypokinesis not being diuresed due to shock, requiring vasopressors cardiology on board; Per cardiology patient has a long history of LV dysfunction and has been on guideline directed medical therapy for LV recovery by brake rider at [facility]. He has been placed on metoprolol 25 mg twice daily and then if her blood pressure tolerates will resume her Entresto. Troponins were also elevated but trended down to 312 #Hypothyroidism: on synthroid #Interstitial lung disease: stable. Not requiring oxygen #History of breast cancer with mets to bone: s/p right mastectomy. Stable. Follow up with oncology on outpatient basis. #Hypertension: BP meds held. IV hydralazine prn. #GERD and anxiety: on PPI DVT prophylaxis: lovenox Charges/Coding Visit Charges Inpatient E&M: 74314 Subs Hosp L2
--- NOTE | 2025-04-04 12:59 | PN.CC_ITS ---
Objective Data Objective Data Vital Signs: Vital Signs Last response 3 Temperature 36.6 C 04/04/25 08:00 Temperature Source Oral 04/04/25 08:00 Pulse Rate 78 04/04/25 12:00 Respiratory Rate 26 H 04/04/25 12:00 Respiratory Effort Normal, Non-Labored 04/03/25 05:12 Respiratory Depth Normal 04/03/25 05:12 Respiratory Pattern Normal 04/03/25 05:12 Blood Pressure 102/75 04/04/25 12:00 Blood Pressure Mean 84 04/04/25 12:00 Blood Pressure Source Monitor 04/04/25 12:00 Blood Pressure Position Semi-Fowlers 04/04/25 12:00 Blood Pressure Location Left Arm 04/04/25 12:00 Pulse Ox 97 04/04/25 12:00 Oxygen Delivery Method Room Air 04/04/25 12:00 Oxygen Flow Rate (L/min) 2 04/03/25 07:48 Fraction of Inspired Oxygen (FIO2) 100 04/03/25 02:00 I&O: I&O Last 24 Hours 3 04/03/25 04/04/25 04/04/25 23:59 11:59 23:59 Intake Total 582.06 / 863.29 200 / 200 Output Total 450 / 1175 175 / 175 Balance 132.06 / -311.71 I&O: Total Stay 3 04/01/25 12:14 thru 04/04/25 09:44 Intake Total 7230.29 Output Total 2475 Balance 4755.29 Current Meds Ordered / Administered: Current meds ordered / Administered 3 Generic Name Dose Route Start Last Admin Trade Name Rebecca PRN Reason Stop Dose Admin Acetaminophen 650 mg 04/01/25 17:12 04/03/25 23:05 Acetaminophen 325 Mg Tablet PO 650 mg Q4H PRN PRN Administration Pain 1-10 Or Fever>99.6 Aspirin 81 mg 04/03/25 08:00 04/04/25 08:20 Aspirin 81 Mg Tab.Chew PO 81 mg BREAKFAST SHANDA Administration Atorvastatin Calcium 80 mg 04/01/25 22:00 04/03/25 21:39 Atorvastatin Calcium 80 Mg Tablet PO 80 mg QHS SHANDA Administration Calamine/Phenol 1 applic 04/03/25 19:25 Menthol/Lanolin/Calamine/Znox 113 Gm Tube TOPICAL 4X/DAY PRN RASH/TOPICAL IRRITATION Protocol Enoxaparin Sodium 40 mg 04/01/25 15:20 04/04/25 08:20 Enoxaparin 40 Mg/0.4 Ml Syringe SC 40 mg Q24 SHANDA Administration Glucagon 1 mg 04/01/25 17:20 Glucagon 1 Mg/Ml Syringe IM X1 PRN Hypoglycemia Protocol Hydrocortisone Acetate 25 mg 04/04/25 11:44 Hydrocortisone 25 Mg Suppository RC BID PRN PRN HEMORRHOIDS Piperacillin Sod/Tazobactam 50 mls @ 12.5 mls/hr 04/01/25 22:00 04/04/25 09:19 Sod 3.375 gm/ Sodium Chloride IV Infused Q8 SHANDA Infusion Vancomycin IV-PHARMACY TO DOSE 500 mls @ 250 mls/hr 04/01/25 14:25 1 each/ Sodium Chloride IV PRN PRN RX TO DOSE Protocol Pantoprazole Sodium 40 mg/ 100 mls @ 330 mls/hr 04/01/25 17:20 04/04/25 09:44 Sodium Chloride IV Infused Q24 SHANDA Infusion Dextrose 250 mls @ 0 mls/hr 04/01/25 17:20 Dextrose 10%-Water IV .Q0M PRN HYPOGLYCEMIA Protocol As Directed Sodium Chloride 250 mls @ 15 mls/hr 04/01/25 17:51 IV .[id number] PRN Saline Flush Sodium Chloride 250 mls @ 15 mls/hr 04/01/25 17:51 IV .[id number] PRN Additional IVPB Infusion Norepinephrine Bitartrate 8 mg 250 mls @ 9.375 mls/hr 04/02/25 00:10 04/04/25 08:21 / Sodium Chloride CONT INF Not Given .[id number] SHANDA Protocol 5 MCG/MIN Vancomycin HCl 1,500 mg/ 530 mls @ 250 mls/hr 04/03/25 17:00 04/03/25 20:22 Sodium Chloride IV Infused Q24H SHANDA Infusion Levothyroxine Sodium 75 mcg 04/02/25 06:00 04/04/25 05:19 Levothyroxine 75 Mcg Tablet PO 75 mcg [id number]@0600 SHANDA Administration Levothyroxine Sodium 50 mcg 04/06/25 06:00 Levothyroxine 50 Mcg Tablet PO SuFrSa@0600 SHANDA Midodrine 10 mg 04/03/25 08:20 04/04/25 11:43 Midodrine Hcl 5 Mg Tablet PO 10 mg TIDCM SHANDA Administration Prochlorperazine Edisylate 5 mg 04/01/25 16:35 Prochlorperazine 10 Mg/2 Ml Vial IV Q4H PRN PRN Breakthrough Nausea/Vomiting Senna/Docusate Sodium 2 tablet 04/01/25 16:35 Senna/Docusate Sodium 1 Tablet PO BID PRN PRN Constipation Sodium Chloride 10 - 40 ml 04/01/25 17:51 0.9% Saline Lock 10 Ml Syringe IV UD PRN SALINE FLUSH Vancomycin Protocol 1 lab 04/05/25 15:30 Vancomycin Trough/Random Due MC 04/05/25 17:30 DAILY SHANDA Lab / Micro Data 04/04/25 07:45 04/04/25 07:45 Labs: Laboratory Results - last 24 hr 04/03/25 16:10: Vancomycin Trough 12.0 04/04/25 07:45: WBC 11.6 H, RBC 3.81 L, Hgb 11.8 L, Hct 35.1 L, MCV 92.1, MCH 31.0, MCHC 33.6 D, RDW Std Deviation 46.7 H, RDW Coeff of Tiffany 13.8, Plt Count 169, MPV 11.4, Immature Gran % (Auto) 0.300, Neut % (Auto) 63.8, Lymph % (Auto) 24.2, Stanley % (Auto) 6.2, Eos % (Auto) 4.7, Baso % (Auto) 0.8, Absolute Neuts (auto) 7.4, Absolute Lymphs (auto) 2.80, Nucleated RBC % 0, Sodium 138, Potassium 3.8, Chloride 109 H, Carbon Dioxide 18.7 L, Anion Gap 11, BUN 16, Creatinine 1.05, Estim Creat Clear Calc 41.66 L, Est GFR (MDRD) Non-Af 53 L, BUN/Creatinine Ratio 15.1, Glucose 80, Calcium 8.0 Micro: Microbiology 04/01/25 13:45 Blood Culture (Wb) - Anticubital Right Blood Culture - 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 Assessment and plan: HPI Patient seen and examined Chart and data reviewed NAD - breathing RA HD stable - no vasopressors CX reviewed EXAM GEN NAD VS as above HEENT o/p clear NECK obese COR RRR CHEST CTA ABD soft EXT minimal edema SKIN w/d GAGAN NF ASSESSMENT/PLAN 1. Severe sepsis 2. Complicated UTI w/ bacteremia 3. Chronic CHF 4. Advanced BRCA 5. Chronic ILD -ABX - would narrow / de-escalate -close attention to volume status -VTE ppx Should TX out of ICU. We are available as needed. The entirety of this encounter was done via Telemedicine
[2025-04-04] MEDS: Hydrocortisone 25 MG Suppository RC (16:17)
[2025-04-04] MEDS: Vancomycin HCl 1,500 MG in 0.9% Normal Saline (500mL Bag) 500 ML 250 MG IV (17:19)
[2025-04-04] MEDS: Atorvastatin Calcium 80 MG Tablet PO (21:50)
[2025-04-05 00:24] VITALS: BMI 32.8
[2025-04-05 00:27] VITALS: BMI 32.8
[2025-04-05 04:00] VITALS: BP 121/72; PULSE 75; RESP 20; TEMP 36.6; O2SAT 96
[2025-04-05] MEDS: 0.9% Saline Lock 10 ML Syringe IV (05:40)
[2025-04-05] MEDS: Piperacil/Tazobactam 3.375 GM in 0.9% Normal Saline (50mL MB+) 50 ML IV ×2 (05:40→13:28)
[2025-04-05] MEDS: Levothyroxine 75 MCG Tablet PO (05:41)
[2025-04-05 06:00] VITALS: BMI 32.8
[2025-04-05 06:21] LABS: Absolute Lymphocyte Count 3.05 X10^3/uL (0.83-4.51); Absolute Neutrophil Count 7.8 X10^3/uL (2.0-7.7); Basophil% 0.8 % (0-1); Eosinophil# 0.49 X10^3/uL; Hemoglobin 10.5 g/dL (12.0-15.0); Lymphocyte # 3.05 X10^3/ul (0.83-4.51); Lymphocyte % 24.7 % (19-41); Mean Corp Hgb Conc 32.8 g/dL (32-36); Mean Corpuscular Hgb 30.3 pg (27.0-32.0); Mean Corpuscular Volume 92.5 fL (81-99); Mean Platelet Vol. 11.2 fl (6.2-12.0); Monocyte# 0.85 X10^3/uL; Monocyte% 6.9 % (0-10); NRBC Flagged by Analyzer 0 % (0-5); Neutrophil # 7.79 X10^3/uL (2.7-7.7); Neutrophil % 63.2 % (47-70); Platelet Count 162 K/mm3 (150-450); RBC Distribution Width CV 13.7 % (11.6-14.6); RBC Distribution Width SD 46.7 fl (35.1-43.9); Red Blood Count 3.46 M/mm3 (4.2-5.4); White Blood Count 12.3 K/mm3 (4.4-11.0)
[2025-04-05 06:51] LABS: Anion Gap 10 (5-15); BUN 12 mg/dL (4-19); BUN/Creat Ratio 11.3 RATIO (10-20); Calcium,Total 7.8 mg/dL (7.6-11.0); Carbon Dioxide 19.4 mmol/L (21.0-32.0); Chloride 110 mmol/L (98-108); Creatinine, Serum 1.05 mg/dL (0.70-1.20); EST Glomerular Filtration Rate 53 (>60); Estimated Creatinine Clearance 41.66 ml/min (50-250); Glucose 78 mg/dL (70-99); Potassium 3.4 mmol/L (3.3-5.1); Sodium Level 140 mmol/L (133-145)
[2025-04-05 07:00] VITALS: PULSE 72
--- NOTE | 2025-04-05 09:47 | CASEMGMT ---
Dr. Johnson states that the pt has potential to DC today. [facility] notified and states that if the pt DC's today they can start care tomorrow. If pt does not DC today, SOC will not be until Wednesday. YONY CM to the pt room at this time and updated on the aforementioned information. Pt states that she is OK with either option and states appreciation. Pt denies further needs at this time. CM to follow.
[2025-04-05] MEDS: Midodrine HCl 5 MG Tablet 10 MG PO ×3 (09:48→16:59)
[2025-04-05 09:49] VITALS: BP 99/71; PULSE 90; RESP 18; TEMP 36.4; O2SAT 97
[2025-04-05] MEDS: Enoxaparin 40 MG/0.4 ML Syringe SC (09:49)
[2025-04-05] MEDS: Aspirin 81 MG TAB.CHEW PO (09:49)
[2025-04-05] MEDS: Pantoprazole Sodium 40 MG in 0.9% Normal Saline (100mL MB+) 100 ML 330 MG IV (09:50)
--- NOTE | 2025-04-05 12:36 | CASEMGMT ---
ST is recommencing additional HH [facility] at [facility] HH notified.
[2025-04-05 12:38] VITALS: BP 116/55; PULSE 75; RESP 18; TEMP 36.6; O2SAT 96
--- NOTE | 2025-04-05 14:15 | CASEMGMT ---
Pt's RN states to this RN CM that the pt will be discharging today and that the RN called the pt's daughter to notify. Sowmya at [facility] HH notified and SOC is projected for tomorrow. Pt updated and denies further home needs and states appreciation.
--- NOTE | 2025-04-05 14:46 | DCINST_ITS ---
Discharge Instructions Diet Discharge Diet: Low fat / Low cholesterol DC O2, CPAP, BIPAP needs Home O2 Discharge instructions: No Dressing / Incision Discharge Activity: Return to Normal Activity Weight Bearing Status: Weight bearing as tolerated Dressing / Incision Call your doctor if you observe: Fever of 101 or Higher, Shortness of breath and Swelling in the ankles Follow Up Care Test Results: Test results from this visit will be discussed in further detail at your follow- up appointment, if applicable. Discharge Plan Admission Admit Date/Time: 04/01/25 14:24 Primary Reason for Your Visit: septic shock due to UTI Attending Provider: Tanvi Johnson Primary Care Provider: Julissa Ariza Consulting Providers: Sonido Bardales; Norm King; Sandip Neff; Jeb Hdz; Parish Burton; Leon Kamara; Indra Hallman; Greyson Arnold; Ramo Mota; Maria Elena Wilson; Javan Mercado; Juventino Simmons; Eric Umanzor; [place]; Theresa Up; Zenaida Hudson; Wayne Mccain; Phong Becker; Young Royal; Silvio Roman; Abdiel Link; Joel Reeder; Pramod Ross; Gage Barry; Aravind Mendoza Instructions Patient Instructions: ED UTIs Women Additional Instructions / Restrictions: follow up with your manager mobility at [facility] within 1-2 weeks. If unable to get an earlier appointment, seek appointment with Dr King of [facility] within one month Discharge Orders/Prescriptions Prescriptions: New midodrine 5 mg Tablet 10 mg PO TIDCM Qty: 90 2RF aspirin 81 mg Tablet,Chewable 81 mg PO BREAKFAST Qty: 30 2RF metoprolol tartrate 25 mg tablet 25 mg PO BID Qty: 60 2RF cefdinir 300 mg capsule 300 mg PO BID Qty: 14 0RF Continued omeprazole 20 MG capsule 20 mg PO DAILY cetirizine 10 mg Tablet 10 mg PO DAILY levothyroxine 75 mcg Tablet 75 mcg PO MOTUWETH Patient Comments: TAKE 75 MCGS WEDNESDAY TO WEDNESDAY ON AN EMPTY STOMACH AND 50 MCGS WEDNESDAY TO WEDNESDAY FOR FOR THYROID ergocalciferol (vitamin D2) 1,250 mcg (50,000 unit) capsule 50,000 unit PO VILLARREAL levothyroxine 50 mcg tablet 50 mcg PO SUFRSA Patient Comments: TAKE 75 MCGS WEDNESDAY TO WEDNESDAY ON AN EMPTY STOMACH AND 50 MCGS WEDNESDAY TO WEDNESDAY FOR FOR THYROID acetaminophen 500 mg tablet 1,000 mg PO Q6H PRN (Reason: pain) albuterol sulfate [Ventolin HFA] 90 mcg/actuation HFA aerosol inhaler 2 inh inhalation Q6H PRN (Reason: shortness of breath or wheezing) gabapentin 100 mg capsule 100 mg PO DAILY ondansetron 4 mg tablet,disintegrating 4 mg PO Q6H PRN (Reason: nausea and vomiting) exemestane 25 mg tablet 25 mg PO DAILY potassium chloride 10 mEq tablet extended release 10 meq PO DAILY torsemide 20 mg tablet 10 mg PO DAILY Discontinued metoprolol succinate 50 mg tablet extended release 24 hr 50 mg PO DAILY Entresto 49-51 mg tablet 1 tab PO BID Referrals / Follow Up: Julissa Ariza MD [Primary Care Provider] - Within 1 Week Norm King MD [Med Staff - Active Staff] - Within 1 Month Disposition Disposition (needs filled in before D/C Order can be placed): Home, Self Care
--- NOTE | 2025-04-05 14:49 | PCM.DC.SUM ---
Providers Date of Admission: 04/01/25 Date of Discharge: 04/05/25 Primary Care Physician: Dr. Julissa Ariza MD Consultations 04/01/25 14:19 Consult: Automotive Shop Foreman / Pulmonary Medicine Routine Consulting Provider: Intensivists/Pulmonary Med Reason for Consult: sepsis, unresponsive EMERGENT Consult: No Notified: Yes Date Notified: 04/01/25 Time Notified: 18:00 Method of Notification: Answering Service 04/01/25 17:12 Consult: Tele-Neurology Routine Consulting Provider: [facility] Reason for Consult: Acute Ischemic Stroke/TIA EMERGENT Consult: No Notified: Yes Date Notified: 04/01/25 Time Notified: 07:37 Method of Notification: Answering Service Comments:: FAXED FACE SHEET Nursing Unit Staff Notify [facility] of Tele-Neurology Consult: Yes 04/03/25 14:27 Consult: Cardiology Routine Consulting Provider: Norm King Reason for Consult: elevated troponins, reduced EF. EMERGENT Consult: No Notified: Yes Date Notified: 04/03/25 Time Notified: 14:27 Method of Notification: Text Reason For Visit: SEPSIS/UNRESPONSIVENESS Diagnosis Discharge Diagnosis (1) Acute lactic acidosis: Status: Acute Code(s): E87.21 - Acute metabolic acidosis (2) Septic shock: Status: Acute Code(s): A41.9 - Sepsis, unspecified organism; R65.21 - Severe sepsis with septic shock (3) Leukocytosis: Status: Acute Code(s): D72.829 - Elevated white blood cell count, unspecified Plan #Septic shock due to UTI She was tachycardic and tachypneic on admission with concern for UTI and pneumonia. Urinalysis did show evidence of UTI and CT of the abdomen and pelvis did not show any evidence of pyelonephritis Respiratory panel for COVID, influenza and flu were negative. Chest x-ray showed increased interstitial opacity more in the left lung base with concern for pneumonia. On broad-spectrum antibiotics with IV vancomycin and Zosyn. Blood and urine cultures pending. she was hydrated with IVF but required vasopressors. She was quickly weaned off of this though. blood cultures positive for gram negative rods. ID on board. WBC is down to 16.9 today. Now off Levophed. currently on midodrine. #Acute encephalopathy Largely resolved. Stroke alert was called during this admission. CT of the brain did not show any acute intracranial pathology. CTA of the head and neck showed no hemodynamically significant stenosis. 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 On p.o. aspirin 81 mg daily. #Chronic heart failure with elevated troponins. 2D echo showed mild generalized left ventricular hypokinesis with EF of 45% and stage II diastolic dysfunction as well as mild biatrial dilatation and mild mitral valve regurgitation with severe 4+ tricuspid valve insufficiency and RVSP of 56 mmHg not on IV lasix due to BP running low There is no previous echo in the system. Will consult cardiology due to the ventricular hypokinesis not being diuresed due to shock, requiring vasopressors cardiology on board; Per cardiology patient has a long history of LV dysfunction and has been on guideline directed medical therapy for LV recovery by alpine guide at [facility]. He has been placed on metoprolol 25 mg twice daily and then if her blood pressure tolerates will resume her Entresto. Troponins were also elevated but trended down to 312 #Hypothyroidism: on synthroid #Interstitial lung disease: stable. Not requiring oxygen #History of breast cancer with mets to bone: s/p right mastectomy. Stable. Follow up with oncology on outpatient basis. #Hypertension: BP meds held. IV hydralazine prn. #GERD and anxiety: on PPI DVT prophylaxis: lovenox Medications at Discharge Home Medications omeprazole 20 mg capsule,delayed release 20 mg PO DAILY HEARTBURN 01/19/14 cetirizine 10 mg tablet 10 mg PO DAILY ALLERGIES 04/14/21 ergocalciferol (vitamin D2) 1,250 mcg (50,000 unit) capsule 50,000 unit PO VILLARREAL SUPPLEMENT 04/14/21 levothyroxine 75 mcg tablet 75 mcg PO MOTUWETH THYROID 04/14/21 levothyroxine 50 mcg tablet 50 mcg PO SUFRSA THYROID 11/01/22 acetaminophen 500 mg tablet 1,000 mg PO Q6H PRN pain 04/01/25 albuterol sulfate 90 mcg/actuation aerosol inhaler (Ventolin HFA) 2 inh inhalation Q6H PRN shortness of breath or wheezing 04/01/25 exemestane 25 mg tablet 25 mg PO DAILY HORMONE 04/01/25 gabapentin 100 mg capsule 100 mg PO DAILY NERVE PAIN 04/01/25 ondansetron 4 mg disintegrating tablet 4 mg PO Q6H PRN nausea and vomiting 04/01/25 potassium chloride 10 mEq tablet,extended release 10 meq PO DAILY SUPPLEMENT 04/01/25 torsemide 20 mg tablet 10 mg PO DAILY WATER PILL 04/01/25 aspirin 81 mg chewable tablet 81 mg PO BREAKFAST #30 tabs 04/05/25 atorvastatin 40 mg tablet (Lipitor) 40 mg PO DAILY #30 tabs 04/05/25 cefdinir 300 mg capsule 300 mg PO BID #14 caps 04/05/25 metoprolol tartrate 25 mg tablet 25 mg PO BID #60 tabs 04/05/25 midodrine 5 mg tablet 10 mg (2 x 5 mg) PO TIDCM #90 tabs 04/05/25 Hospital Course Operations None Procedures 2-D Echocardiogram Summary of Care Provided Minutes Spent on Discharge: 47 Hospital Course: Patient is an 84-year-old female with a past medical history as outlined who was admitted through the ED on 04/01/2025 after being found unresponsive by her daughter. When the daughter found her she could only open her eyes but could not speak though she gradually became more responsive. She subsequently complained of headache. She was hypotensive when the EMS found her with blood pressure of 77/46 and her heart rate was 122. Her temperature was 99.2 Fahrenheit. Daughter said the day before she found her patient having complaint of left upper quadrant and left upper back pain. She denied any burning with urination and denied any abdominal pain. According to her daughter patient had had urine infections in the past but without any urinary complaints. Review of systems otherwise negative. She was hypotensive and tachycardic in the ED. Blood pressure was 84/55. She was hydrated with IV fluids per sepsis protocol and admitted to the ICU to be managed for sepsis due to UTI. However subsequently her blood pressure was not responding to IV fluid so she was started on Levophed. She was started on broad-spectrum antibiotics also. Hospital course was complicated by stroke alert being called on account of strokelike symptoms. Critical care was consulted. Her respiratory panel was negative and chest x-ray showed increased interstitial opacity more in the left lung base concerning for pneumonia. As stated she was placed on broad-spectrum IV vancomycin and Zosyn. Her white cell count trended up to 30.6 but subsequently did start trending downwards. CT of the brain did not show any acute intracranial pathology and CT of the head and neck showed no hemodynamically significant stenosis. She did have an MRI of the brain which showed right cerebellar infarct though it was read as normal. This right cerebellar infarct was detected as per neurology read. 2D echo showed EF of 45% with stage II diastolic dysfunction and severe 4+ tricuspid valve insufficiency with right regular systolic pressure of 56 mmHg. She also has stage II diastolic dysfunction. She did have known heart failure. Cardiology was consulted and per patient and her daughter she had been following up at [facility] for these echo findings. She therefore preferred to follow-up with them. Her diuretics were held and her metoprolol was cut down to 25 mg twice daily per cardiology. Her Entresto was also held due to the hypotension she was started on midodrine. Neurology recommended patient be started on aspirin and high intensity statin in light of the MRI findings there was a fall that the cerebellar stroke explain her symptoms. Patient symptoms actually resolved and she felt much better. She did work with therapy and felt well. She was therefore discharged home on 04/05/2025. She was discharged on p.o. cefdinir 300 mg twice daily for 7 days. As stated she was discharged on p.o. metoprolol 25 mg twice daily as well as p.o. aspirin and also p.o. atorvastatin 40 mg daily. She is to follow-up with her primary care doctor within 1 to 2 weeks. Patient was seen and examined prior to discharge. She felt well and was eagerly asking to be discharged. She had no active complaints and had an uneventful night. Review of systems otherwise negative. Labs and vitals reviewed. Home medication reviewed and reconciled. She is also to work with her alpine guide at [facility] within 1 to 2 weeks. If she was having delay in getting an appointment patient was counseled to follow-up with we will start heart group and to call to make an appointment. Physical Exam Const alert, oriented x3 and no apparent distress Constitutional Narrative: frail General Appearance: cooperative and comfortable Orientation / Consciousness: awake Exam Limitations: no limitations HEENT normocephalic, head/scalp atraumatic, hearing grossly normal bilaterally, moist oral mucous membranes and oropharynx normal Mouth: oral and palatal mucosa normal Eyes PERRL, EOMs intact bilaterally and conjunctivae normal Neck no lymphadenopathy and supple Lymph Lymphatic: no lymphadenopathy noted and no lymphedema noted Resp Resp Narrative: diminished breath sounds bibasally, no wheezes or crackle. On room air. Cardio regular rate, regular rhythm, S1 normal heart sound, S2 normal heart sound and no murmurs GI normal to inspection, nondistended, normoactive bowel sounds, soft to palpation and non-tender Extremity normal to inspection, full ROM, normal capillary refill, no clubbing, cyanosis or edema and no calf tenderness General Extremity: no tenderness to palpation of joints or extremities Skin no rashes or lesions noted Neuro oriented x3, CN's II-XII intact bilaterally, moves all extremities, no focal motor deficits and no sensory deficits noted Sensorium / Orientation: awake and alert Motor Exam: strength 5/5 throughout and general weakness Psych thought process normal, cooperative and affect normal Appearance: appropriate Weight / BMI Weight Weight: 184 lb 15.485 oz Body Mass Index (BMI) 32.8 ABG / Lab / Microbiology Data 04/05/25 05:18 04/05/25 05:18 Laboratory: Laboratory Results - last 24 hr 04/05/25 05:18: WBC 12.3 H, RBC 3.46 L, Hgb 10.5 L, Hct 32.0 L, MCV 92.5, MCH 30.3, MCHC 32.8, RDW Std Deviation 46.7 H, RDW Coeff of Tiffany 13.7, Plt Count 162, MPV 11.2, Immature Gran % (Auto) 0.400, Neut % (Auto) 63.2, Lymph % (Auto) 24.7, Louisa % (Auto) 6.9, Eos % (Auto) 4.0, Baso % (Auto) 0.8, Absolute Neuts (auto) 7.8 H, Absolute Lymphs (auto) 3.05, Nucleated RBC % 0, Sodium 140, Potassium 3.4, Chloride 110 H, Carbon Dioxide 19.4 L, Anion Gap 10, BUN 12, Creatinine 1.05, Estim Creat Clear Calc 41.66 L, Est GFR (MDRD) Non-Af 53 L, BUN/Creatinine Ratio 11.3, Glucose 78, Calcium 7.8 Microbiology: Microbiology 04/01/25 13:45 Blood Culture (Wb) - Anticubital Right Blood Culture - Final GNR lactose latex 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 04/01/25 13:59 Blood Culture (Wb) - Anticubital Right Blood Culture - Final Klebsiella aerogenes 04/01/25 13:10 Urine Catheter - Mcbride Urine Culture - Final Klebsiella aerogenes 04/01/25 19:07 Nasal Secretion MRSA (PCR) - Final 04/01/25 17:15 Mucosa - Nasopharyngeal Respiratory Panel (PCR) - Final 04/01/25 13:10 Urine Catheter - Catheter Legionella Antigen - Final 04/01/25 13:10 Urine Catheter - Catheter Streptococcus pneumoniae Antigen (M - Final 04/01/25 13:10 Mucosa - Nose SARS-CoV-2, Influenza & RSV (PCR) - Final D/C Instructions Discharge Diet: Low fat / Low cholesterol Discharge Activity: Return to Normal Activity Weight Bearing Status: Weight bearing as tolerated Call your doctor if you observe: Fever of 101 or Higher, Shortness of breath and Swelling in the ankles DC O2, CPAP, BIPAP Needs Home O2 Discharge instructions: No Meaningful Use Info Meaningful Use Meaningful Use Diagnoses (Choose all that apply): None applicable Ischemic Stroke Statin Dosing Therapy Reference: STATIN DOSE THERAPY REFERENCE: * Patients > 75 years receive moderate or high dose statin therapy. * Patients 75 years or YOUNGER should receive HIGH intensity statin dose unless contraindicated. You will be required to document reason for non-treatment if statin daily dose does not meet guidelines. HIGH DOSE STATIN THERAPY DAILY Atorvastatin > than or = to 40 mg Rosuvastatin > than or = to 20 mg Amlodipine + Atorvastatin > than or = to 2.5/40 mg Ezetimibe + Simvastatin 10/80 mg Simvastatin 80mg Discharge Plan Admission Admit Date/Time: 04/01/25 14:24 Primary Reason for Your Visit: septic shock due to UTI Attending Provider: Tanvi Johnson Primary Care Provider: Julissa Ariza Consulting Providers: Sonido Bardales; Norm King; Sandip Neff; Jeb Hdz; Parish Burton; Leon Kamara; Indra Hallman; Greyson Arnold; Ramo Mota; Maria Elena Wilson; Javan Mercado; Juventino Simmons; Eric Umanzor; [place]; Theresa Up; Zenaida Hudson; Wayne Mccain; Phong Becker; Young Royal; Silvio Roman; Abdiel Link; Joel Reeder; Pramod Ross; Gage Barry; Aravind Mendoza Instructions Patient Instructions: ED UTIs Women Additional Instructions / Restrictions: follow up with your alpine guide at [facility] within 1-2 weeks. If unable to get an earlier appointment, seek appointment with Dr King of [facility] within one month Discharge Orders/Prescriptions Prescriptions: New midodrine 5 mg Tablet 10 mg PO TIDCM Qty: 90 2RF aspirin 81 mg Tablet,Chewable 81 mg PO BREAKFAST Qty: 30 2RF metoprolol tartrate 25 mg tablet 25 mg PO BID Qty: 60 2RF cefdinir 300 mg capsule 300 mg PO BID Qty: 14 0RF atorvastatin [Lipitor] 40 mg tablet 40 mg PO DAILY Qty: 30 2RF Continued omeprazole 20 MG capsule 20 mg PO DAILY cetirizine 10 mg Tablet 10 mg PO DAILY levothyroxine 75 mcg Tablet 75 mcg PO MOTUWETH Patient Comments: TAKE 75 MCGS WEDNESDAY TO WEDNESDAY ON AN EMPTY STOMACH AND 50 MCGS WEDNESDAY TO WEDNESDAY FOR FOR THYROID ergocalciferol (vitamin D2) 1,250 mcg (50,000 unit) capsule 50,000 unit PO VILLARREAL levothyroxine 50 mcg tablet 50 mcg PO SUFRSA Patient Comments: TAKE 75 MCGS WEDNESDAY TO WEDNESDAY ON AN EMPTY STOMACH AND 50 MCGS WEDNESDAY TO WEDNESDAY FOR FOR THYROID acetaminophen 500 mg tablet 1,000 mg PO Q6H PRN (Reason: pain) albuterol sulfate [Ventolin HFA] 90 mcg/actuation HFA aerosol inhaler 2 inh inhalation Q6H PRN (Reason: shortness of breath or wheezing) gabapentin 100 mg capsule 100 mg PO DAILY ondansetron 4 mg tablet,disintegrating 4 mg PO Q6H PRN (Reason: nausea and vomiting) exemestane 25 mg tablet 25 mg PO DAILY potassium chloride 10 mEq tablet extended release 10 meq PO DAILY torsemide 20 mg tablet 10 mg PO DAILY Discontinued metoprolol succinate 50 mg tablet extended release 24 hr 50 mg PO DAILY Entresto 49-51 mg tablet 1 tab PO BID Referrals / Follow Up: Julissa Ariza MD [Primary Care Provider] - Within 1 Week Norm King MD [Med Staff - Active Staff] - Within 1 Month Disposition Disposition (needs filled in before D/C Order can be placed): Home, Self Care Charges/Coding Visit Charges Inpatient E&M: 38749 Disch Hosp >30min
[2025-04-05 15:00] VITALS: PULSE 69
--- NOTE | 2025-04-05 15:02 | CASEMGMT ---
Pt has an order for DC placed. Sowmya from [facility] notified. HH SOC is projected for tomorrow morning. TC to the pt's daughter/POA (Kasia). Kasia states that she is going through an issue with her daughter and 6 month y/o grandchild currently and that she was not expecting the pt to DC today. Kasia also states that their pvt duty aide has not been cleaning the home as she was supposed to. This RN CM provided Kasia with emotional support. Kasia thanks this RN CM and states that she does feel safe bringing the pt home today with her current DME and denies further concerns. RN CM to pt room at this time. Updated pt that pt will be discharging today. Pt expresses excitement and states that she feels very safe returning home with her daughter today. Pt denies further home needs or concerns. PLAN: Home with daughter and skilled HHC (SN, PT, OT, and ST) with the continuation of pvt duty aid.
--- NOTE | 2025-04-05 17:56 | NURSING ---
Pt and daughter given all discharge instructions at this time including medications, follow up appointments and all other discharge instructions. All questions answered at this time. telemetry removed. Iv removed with catheter intact, clean dry dressing applied, pt tolerated well. pt assisted to get dressed and wheeled out to daughters waiting vehicle. Pt and daughter deny any further questions at this time.
[2025-04-11 16:05] LABS: Pathologist Review Reviewed
== END 2025-04-05 17:55 | disposition home or self-care (01) | DRG 871 ==
LOC: ED 14:21 → ICU 14:44
PROVIDERS: Admitting Provider Internal Medicine; Emergency Provider Emergency Medicine; PCP Internal Medicine; Referring Provider Internal Medicine; Visit Provider Student in an Organized Health Care Education/Training Program
DX: A41.50 Gram-negative sepsis, unspecified (principal); G92.8 Other toxic encephalopathy; I63.541 Cerebral infarction due to unspecified occlusion or stenosis of right cerebellar artery; R65.21 Severe sepsis with septic shock; C79.31 Secondary malignant neoplasm of brain; E87.21 Acute metabolic acidosis; I50.22 Chronic systolic (congestive) heart failure; J84.9 Interstitial pulmonary disease, unspecified; I24.89 Other forms of acute ischemic heart disease; C79.51 Secondary malignant neoplasm of bone; N39.0 Urinary tract infection, site not specified; I11.0 Hypertensive heart disease with heart failure; E03.9 Hypothyroidism, unspecified; I08.1 Rheumatic disorders of both mitral and tricuspid valves; K21.9 Gastro-esophageal reflux disease without esophagitis; F41.9 Anxiety disorder, unspecified; Z66 Do not resuscitate; G89.29 Other chronic pain; Z79.890 Hormone replacement therapy; R41.82 Altered mental status, unspecified; B96.1 Klebsiella pneumoniae [K. pneumoniae] as the cause of diseases classified elsewhere; Z90.11 Acquired absence of right breast and nipple; Z85.3 Personal history of malignant neoplasm of breast
CPT/HCPCS: 36415; 51702; 70450; 70496; 70498; 70551; 71045; 74176; 74230; 80048; 80053; 80061; 80202; 81001; 82550; 82962; 83036; 83605; 83735; 84156; 84439; 84443; 84484; 85025; 85610; 85730; 87040; 87077; 87086; 87088; 87186; 87449; 87631; 87633; 87641; 92526; 92611; 93005; 93306; 94762; 97162; 97166; 97530; 97535; 97802; 99285; Q9957; Q9967; A4216

== ENCOUNTER 2025-04-20 07:15 | Inpatient (IN) | payer MEDICARE, BC, MEDICAID, SELFPAY ==
[2025-04-20] VITALS (10 sets, daily range): BP systolic 123–177; BP diastolic 53–121; PULSE 74–101; RESP 13–31; TEMP 36.6–37.5; O2SAT 92–97; BMI 31.5; BMI 30.6
--- NOTE | 2025-04-20 07:20 | RAD_ITS ---
PROCEDURE: CHEST 1 VIEW (PORTABLE) 04/20/2025 REASON FOR EXAM: WEAKNESS, FATIGUE Increasing confusion. TECHNIQUE: Frontal view of the chest. COMPARISON: Prior radiograph dated April 01, 2025. FINDINGS: Hardware: EKG electrodes are seen. Surgical clips are seen in the right axilla. Heart: Mild cardiomegaly. Lungs: Stable increased interstitial markings with areas of confluence worse in the left lower lobe suggestive of chronic interstitial fibrosis. Bones: Degenerative changes are identified within the thoracic spine. Degenerative changes of both shoulders. Other: RAD/Chest 1 View (Portable) IMPRESSION: Stable examination suggestive of chronic interstitial fibrosis. Reading Location: [place] [id number]
--- NOTE | 2025-04-20 07:22 | EX.ED.DYSGE1 ---
HPI History of Present Illness Chief Complaint: General Illness Narrative Narrative: History and physical mildly limited secondary to decreased mental status. 85-year-old female presents via EMS with reports of lethargy and generalized weakness. Reportedly, her family was concerned that perhaps she was having a stroke because she was generally weak. She was incontinent of urine when she got up from the chair. She may be more slightly confused per EMS. She denies any pain, no fevers, chills, or cough. [facility] Medical History LV dysfunction History of breast cancer Acute hypotension Hypertension Anxiety Hypothyroidism GERD (gastroesophageal reflux disease) Interstitial lung disease Hypertension Breast cancer metastasized to bone Home Medications ?Medication ?Instructions ?Recorded ?Last Taken ?Type omeprazole 20 mg capsule,delayed 20 mg PO DAILY HEARTBURN 01/19/14 Unknown History release cetirizine 10 mg tablet 10 mg PO DAILY ALLERGIES 04/14/21 Unknown History ergocalciferol (vitamin D2) 1,250 50,000 unit PO VILLARREAL SUPPLEMENT 04/14/21 03/25/25 History mcg (50,000 unit) capsule levothyroxine 75 mcg tablet 75 mcg PO MOTUWETH THYROID 04/14/21 Unknown History levothyroxine 50 mcg tablet 50 mcg PO SUFRSA THYROID 11/01/22 Unknown History acetaminophen 500 mg tablet 1,000 mg PO Q6H PRN pain 04/01/25 Unknown History albuterol sulfate 90 mcg/actuation 2 inh inhalation Q6H PRN shortness 04/01/25 Unknown History aerosol inhaler (Ventolin HFA) of breath or wheezing exemestane 25 mg tablet 25 mg PO DAILY HORMONE 04/01/25 Unknown History gabapentin 100 mg capsule 100 mg PO DAILY NERVE PAIN 04/01/25 Unknown History ondansetron 4 mg disintegrating 4 mg PO Q6H PRN nausea and vomiting 04/01/25 Unknown History tablet potassium chloride 10 mEq 10 meq PO DAILY SUPPLEMENT 04/01/25 Unknown History tablet,extended release torsemide 20 mg tablet 10 mg PO DAILY WATER PILL 04/01/25 Unknown History aspirin 81 mg chewable tablet 81 mg PO BREAKFAST #30 tabs 04/05/25 Unknown Rx atorvastatin 40 mg tablet (Lipitor) 40 mg PO DAILY #30 tabs 04/05/25 Unknown Rx cefdinir 300 mg capsule 300 mg PO BID #14 caps 04/05/25 Unknown Rx metoprolol tartrate 25 mg tablet 25 mg PO BID #60 tabs 04/05/25 Unknown Rx midodrine 5 mg tablet 10 mg (2 x 5 mg) PO TIDCM #90 tabs 04/05/25 Unknown Rx Allergy/AdvReac Type Severity Reaction Status Date / Time tramadol Allergy Other Verified 04/20/25 07:17 tuberculin, purified protein AdvReac Severe Other Verified 04/20/25 07:17 deriva Surgical History History of appendectomy H/O right mastectomy Social History household members: none Smoking Status: Never smoker substance use type: does not use ROS ROS ED ROS Narrative Review of systems positive for confusion, generalized weakness, and lethargy. Patient denies any pain, no fevers or chills, no nausea or vomiting, no cough or shortness of breath. EXAM Physical Exam Narrative Exam Narrative: Afebrile but temperature slightly elevated at 99.4. Nontoxic-appearing. Cardiovascular examination reveals intermittent tachycardia. Lungs clear to auscultation bilaterally. Abdomen is soft and nontender without guarding or rebound, positive bowel sounds. Neurovascularly intact to bilateral lower extremities. Nonfocal, nonlateralizing neurological examination. Awake, alert, mild confusion noted, stated age was 89. No pedal edema. Const Vital Signs: 04/20/25 07:17 04/20/25 07:19 04/20/25 08:37 Temperature 99.4 F H 99.4 F H 99.5 F H Temperature Source Oral Oral Oral Pulse Rate 101 H 101 H 94 Respiratory Rate 20 H 31 H 13 Blood Pressure 159/121 H 159/121 H 177/82 H Blood Pressure Mean 133 133 113 Pulse Ox 92 94 93 Oxygen Delivery Method Room Air Sepsis Attestation Sepsis Alert: Yes Sepsis Attestation: Agree w/Sepsis Date exam was performed: 04/20/25 Time exam was performed: 09:36 Possible Source of Sepsis: Genitourinary Sepsis Organ Dysfunction Criteria Present: Lactic Acid > 2 mmol/L and New/Unexplained change in mental status Fluid Resuscitation Fluid Resuscitation ordered: Fluids not indicated MDM MDM MDM Narrative Medical decision making narrative: I reviewed the patient's prior ED visits and at the beginning of the month, approximately 19 days ago she was diagnosed with UTI. Differential diagnosis does include but not limited to UTI versus SIRS versus sepsis versus pneumonia versus dehydration versus other electrolyte imbalance. As she has a nonfocal examination and nonlateralizing, I do not feel stroke team is indicated. EKG was obtained and interpreted by myself independently is normal sinus rhythm at 97 bpm with PVC, but no acute ST changes. No STEMI. No significant change when compared to prior EKG. I reviewed her laboratory work and she does have a leukocytosis of 16.1. When compared to prior labs, the last time she was admitted in early April she had leukocytosis as well. Hemoglobin 12.4 with hematocrit 38.2, platelet count normal at 320. Electrolyte panel was grossly unremarkable save for creatinine slightly elevated at 1.33 with a BUN of 17, no dehydration, glucose appropriately elevated at 117 with a normal anion gap of 14. AST slightly elevated at 42 which I think is nonspecific and she has a normal ALT and alk phos. Urinalysis does show greater than 100 WBCs but 0 bacteria. I reviewed her prior urinalysis and there was no bacteria as well with greater than 100 white cells. I reviewed her prior urine culture and she did have Klebsiella that was sensitive to Rocephin. She was administered 1 g and urine culture is currently pending. Chest x-ray in 1 view interpreted by myself independently shows a stable interstitial fibrosis especially in the left lower lobe when compared to prior chest x-ray. No new pneumonia or pneumothorax. I reviewed the radiology report which confirms my independent interpretation. While lactic acid is still pending, I do feel that she requires admission for her UTI with mental status change and lethargy and she is meeting SIRS criteria with tachycardia and leukocytosis. Her lactic acid did return slightly elevated at 2.1. When compared to prior lactic acid, it was as high as 4. Patient was discussed with the hospitalist. I discussed patient with Dr. Dee. He would like another gram of Rocephin ordered and admitted. She is in stable condition. History & Record Review Discussion w/independent historian: Patient and Family Additional record(s) reviewed:: Prior ED visit and Prior labs Lab Data Attestation: I reviewed the patient's lab results. Labs: Laboratory Results - last 24 hr 04/20/25 04/20/25 07:25 08:15 WBC 16.1 H RBC 4.07 L Hgb 12.4 Hct 38.2 MCV 93.9 MCH 30.5 MCHC 32.5 RDW Std Deviation 49.4 H RDW Coeff of Tiffany 14.4 Plt Count 320 MPV 10.0 Immature Gran % (Auto) 0.500 Neut % (Auto) 73.5 H Lymph % (Auto) 16.6 L [place] % (Auto) 7.8 Eos % (Auto) 0.6 Baso % (Auto) 1.0 Absolute Neuts (auto) 11.8 H Absolute Lymphs (auto) 2.67 Nucleated RBC % 0 Sodium 143 Potassium 3.4 Chloride 103 Carbon Dioxide 25.5 Anion Gap 14 BUN 17 Creatinine 1.33 H Estim Creat Clear Calc 31.67 L Est GFR (MDRD) Non-Af 39 L BUN/Creatinine Ratio 12.6 Glucose 117 H Lactic Acid 2.1 H* Calcium 9.3 Total Bilirubin 0.71 AST 42 H ALT 19 Alkaline Phosphatase 67 Total Protein 7.5 Albumin 3.6 Globulin 4.0 Albumin/Globulin Ratio 0.9 Urine Color Yellow Urine Clarity Cloudy Urine pH 6.5 Ur Specific [place] 1.010 Urine Protein 100 H Urine Glucose (UA) Normal Urine Ketones Negative Urine Occult Blood 250 H Urine Nitrite Negative Urine Bilirubin Negative Urine Urobilinogen Normal Ur Leukocyte Esterase 500 H Urine RBC 0 SEEN Urine WBC >100 SEEN Ur Squamous Epith Cells 0 SEEN Urine Bacteria 0 SEEN Urine Mucus 0 SEEN Radiography Chest X-Ray - ED: 1 View, Read by ED Physician, Read by Radiologist and Unchanged Diagnostic Testing: Clinical Impression(s) from Imaging Studies Chest X-Ray 04/20/25 07:20 IMPRESSION: Stable examination suggestive of chronic interstitial fibrosis. Reading Location: [facility] Discharge Plan Dx/Rx/DC Orders Clinical Impression: Severe sepsis, UTI (urinary tract infection), Lactic acidosis, Confusion Disposition Disposition: Acute Care [facility]
--- NOTE | 2025-04-20 07:26 | EKG12_ITS ---
Test Reason : GENERAL Blood Pressure : */* mmHG Vent. Rate : 95 BPM Atrial Rate : 95 BPM P-R Int : 160 ms QRS Dur : 72 ms QT Int : 374 ms P-R-T Axes : 31 -10 102 degrees QTcB Int : 469 ms Normal sinus rhythm Septal infarct , age undetermined T wave abnormality, consider lateral ischemia Abnormal ECG When compared with ECG of 21-Apr-2025 05:58, MANUAL COMPARISON REQUIRED DATA IS UNCONFIRMED Confirmed by TERESA GALLO, GARETT ([id number]), research editor GINO MAGALLANES ([id number]) on 04/24/2025 6:37:38 AM Referred By: Confirmed By: GARETT MOORE MD
[2025-04-20] MEDS: 0.9% Normal Saline (500mL Bag) 500 ML 1000 ML IV (07:30)
[2025-04-20 07:43] LABS: Bacteria 0 SEEN /hpf (None Seen); Mucous, Urine 0 SEEN /hpf (<or=2+); Red Blood Cells-Urine 0 SEEN /hpf (0-5); Squamous Epithelial Cells - UA 0 SEEN /hpf (5-10)
[2025-04-20 07:44] LABS: Color, Urine Yellow (Yellow); Glucose, Dipstick Normal (Normal); Ketone-Dipstick Negative (Negative); Leukocyte Esterase-Dipstick 500 /ul (Negative); Nitrite-Dipstick Negative (Negative); Occult Blood-Urine 250 /ul (Negative); Protein-Dipstick 100 mg/dl (Negative); Urine Bilirubin Dipstick Negative (Negative); Urine Clarity Cloudy (Clear); Urine Urobilinogen Normal (Normal); Urine pH 6.5 (5.0 - 8.0)
[2025-04-20 07:45] LABS: Absolute Lymphocyte Count 2.67 X10^3/uL (0.83-4.51); Absolute Neutrophil Count 11.8 X10^3/uL (2.0-7.7); Basophil# 0.16 X10^3/uL; Eosinophil# 0.09 X10^3/uL; Eosinophils% 0.6 % (0-5); Hematocrit 38.2 % (37-47); Hemoglobin 12.4 g/dL (12.0-15.0); Lymphocyte # 2.67 X10^3/ul (0.83-4.51); Lymphocyte % 16.6 % (19-41); Mean Corp Hgb Conc 32.5 g/dL (32-36); Mean Corpuscular Hgb 30.5 pg (27.0-32.0); Mean Corpuscular Volume 93.9 fL (81-99); Monocyte# 1.26 X10^3/uL; Monocyte% 7.8 % (0-10); NRBC Flagged by Analyzer 0 % (0-5); Neutrophil # 11.84 X10^3/uL (2.7-7.7); Neutrophil % 73.5 % (47-70); Platelet Count 320 K/mm3 (150-450); RBC Distribution Width CV 14.4 % (11.6-14.6); RBC Distribution Width SD 49.4 fl (35.1-43.9); Red Blood Count 4.07 M/mm3 (4.2-5.4); White Blood Count 16.1 K/mm3 (4.4-11.0)
[2025-04-20 07:50] LABS: White Blood Cells >100 SEEN /hpf (0-5)
[2025-04-20 08:15] LABS: ALB/GLOB Ratio 0.9 RATIO (0.9-2.4); AST(SGOT) 42 U/L (<=31); Alanine Aminotransfer ALT/SGPT 19 U/L (<=34); Albumin, Serum 3.6 g/dL (3.4-4.8); Alkaline Phosphatase 67 U/L (35-104); Anion Gap 14 (5-15); BUN 17 mg/dL (4-19); BUN/Creat Ratio 12.6 RATIO (10-20); Calcium,Total 9.3 mg/dL (7.6-11.0); Carbon Dioxide 25.5 mmol/L (21.0-32.0); Chloride 103 mmol/L (98-108); Creatinine, Serum 1.33 mg/dL (0.70-1.20); EST Glomerular Filtration Rate 39 (>60); Estimated Creatinine Clearance 31.67 ml/min (50-250); Glucose 117 mg/dL (70-99); Potassium 3.4 mmol/L (3.3-5.1); Protein, Total 7.5 g/dL (5.9-8.4); Sodium Level 143 mmol/L (133-145); Total Bilirubin 0.71 mg/dL (0.00-1.30)
--- NOTE | 2025-04-20 08:19 | EKG12_ITS ---
Test Reason : Blood Pressure : */* mmHG Vent. Rate : 97 BPM Atrial Rate : 97 BPM P-R Int : 192 ms QRS Dur : 70 ms QT Int : 316 ms P-R-T Axes : 86 -17 118 degrees QTcB Int : 401 ms Sinus rhythm with occasional Premature ventricular complexes Low voltage QRS Septal infarct , age undetermined Abnormal ECG Confirmed by Norm King ([id number]), video tape editor BILL WEI ([id number]) on 04/24/2025 12:47:29 PM Referred By: Confirmed By: Norm King
[2025-04-20] MEDS: Ceftriaxone 1 GM/50 ML BAG IV ×2 (08:30→09:44)
[2025-04-20 09:00] LABS: Lactic Acid 2.1 mmol/L (0.0-2.0)
[2025-04-20] MEDS: 0.9% Normal Saline (1000mL) 1,000 ML 100 ML IV ×2 (11:36→21:37)
[2025-04-20 12:21] LABS: Reflex Lactate? Y
[2025-04-20] MEDS: Metoprolol Tartrate 25 MG Tablet PO ×2 (12:22→21:37)
[2025-04-20] MEDS: Heparin Injection (Vial) 5,000 UNIT/ML VIAL 5000 UNIT SC ×2 (12:23→21:37)
[2025-04-20] MEDS: Pantoprazole Sodium 20 MG Tablet PO (12:24)
--- NOTE | 2025-04-20 12:35 | PCM.HP.STD ---
HPI - General General Date of Admission: 04/20/25 Date of Service: 04/20/25 Chief Complaint: Lethargy, generalized weakness HPI Narrative MYCHAL DODD, is a 85 F who presents to the emergency room at [facility] after being brought in by EMS at the direction of her daughter due to lethargy and generalized weakness. Patient has a history of cognitive impairment but according to the daughter was more confused than usual. Patient was discharged from the hospital here on 04/05/2025 after being treated for septic shock due to urinary tract infection. Labs obtained in the ER included CBC which showed elevated white blood cell count at 16.1, creatinine was elevated at 1.33, lactic acid was elevated at 2.1, AST was elevated at 42 and urinalysis showed more than 100 WBCs, no urine bacteria was noted, leukocyte esterase was 500. Patient's chest x-ray showed evidence of interstitial fibrosis, patient's pulse ox on room air was 95%, patient was tachycardic at 133 on admission to the emergency room with respirations of 20. Temperature was 99.4. Patient met criteria for severe sepsis, she will be admitted to PCU and placed on cefepime, urine and blood cultures were obtained, patient's IV will be placed at 100 cc/h at least until tomorrow. Pulse ox will be monitored, labs will be monitored. Patient's CODE STATUS is DNR CC arrest without intubation, I talked with patient's daughter who is her oldest daughter. [facility] Medical History LV dysfunction History of breast cancer Acute hypotension Hypertension Anxiety Hypothyroidism GERD (gastroesophageal reflux disease) Interstitial lung disease Hypertension Breast cancer metastasized to bone Home Medications ?Medication ?Instructions ?Recorded ?Last Taken ?Type omeprazole 20 mg capsule,delayed 20 mg PO DAILY HEARTBURN 01/19/14 Unknown History release cetirizine 10 mg tablet 10 mg PO DAILY ALLERGIES 04/14/21 Unknown History ergocalciferol (vitamin D2) 1,250 50,000 unit PO VILLARREAL SUPPLEMENT 04/14/21 03/25/25 History mcg (50,000 unit) capsule levothyroxine 75 mcg tablet 75 mcg PO MOTUWETH THYROID 04/14/21 Unknown History levothyroxine 50 mcg tablet 50 mcg PO SUFRSA THYROID 11/01/22 Unknown History acetaminophen 500 mg tablet 1,000 mg PO Q6H PRN pain 04/01/25 Unknown History albuterol sulfate 90 mcg/actuation 2 inh inhalation Q6H PRN shortness 04/01/25 Unknown History aerosol inhaler (Ventolin HFA) of breath or wheezing exemestane 25 mg tablet 25 mg PO DAILY HORMONE 04/01/25 Unknown History gabapentin 100 mg capsule 100 mg PO DAILY NERVE PAIN 04/01/25 Unknown History ondansetron 4 mg disintegrating 4 mg PO Q6H PRN nausea and vomiting 04/01/25 Unknown History tablet potassium chloride 10 mEq 10 meq PO DAILY SUPPLEMENT 04/01/25 Unknown History tablet,extended release torsemide 20 mg tablet 10 mg PO DAILY WATER PILL 04/01/25 Unknown History aspirin 81 mg chewable tablet 81 mg PO BREAKFAST #30 tabs 04/05/25 Unknown Rx atorvastatin 40 mg tablet (Lipitor) 40 mg PO DAILY #30 tabs 04/05/25 Unknown Rx metoprolol tartrate 25 mg tablet 25 mg PO BID #60 tabs 04/05/25 Unknown Rx midodrine 5 mg tablet 10 mg (2 x 5 mg) PO TIDCM #90 tabs 04/05/25 Unknown Rx Allergy/AdvReac Type Severity Reaction Status Date / Time tramadol Allergy Other Verified 04/20/25 07:17 tuberculin, purified protein AdvReac Severe Other Verified 04/20/25 07:17 deriva Surgical History History of appendectomy H/O right mastectomy Social History household members: none Smoking Status: Never smoker substance use type: does not use ROS ROS Narrative Review of systems was unable to be obtained due to patient's confusion, patient is oriented x 1 Review of Systems ROS Unobtainable: due to mental status Vital Signs Vital Signs Vital Signs: 04/20/25 07:17 04/20/25 07:19 04/20/25 08:37 Temperature 99.4 F H 99.4 F H 99.5 F H Temperature Source Oral Oral Oral Pulse Rate 101 H 101 H 94 Respiratory Rate 20 H 31 H 13 Blood Pressure 159/121 H 159/121 H 177/82 H Blood Pressure Mean 133 133 113 Pulse Ox 92 94 93 Oxygen Delivery Method Room Air 04/20/25 09:48 04/20/25 09:52 04/20/25 10:30 Temperature 98.9 F 98.9 F 98.6 F Temperature Source Temporal Oral Pulse Rate 91 96 85 Respiratory Rate 23 H 23 H 16 Blood Pressure 157/80 H 169/81 H 142/74 H Blood Pressure Mean 105 110 96 Pulse Ox 96 95 95 Oxygen Delivery Method Room Air 04/20/25 12:22 Temperature Temperature Source Pulse Rate 85 Respiratory Rate Blood Pressure Blood Pressure Mean Pulse Ox Oxygen Delivery Method Weight Weight: 78.4 kg Body Mass Index (BMI) 30.6 Physical Exam Const alert and no apparent distress Constitutional Narrative: Patient is oriented to self only General Appearance: cooperative, well kempt and well developed Orientation / Consciousness: awake and oriented to person HEENT normocephalic, head/scalp atraumatic, hearing grossly normal bilaterally and moist oral mucous membranes Eyes PERRL, EOMs intact bilaterally and conjunctivae normal Neck supple, no JVD, thyroid normal and no carotid bruits General: trachea midline Resp normal respiratory effort, no retractions and no use of accessory muscles Resp Narrative: Inspiratory rales are noted over both lungs Auscultation: Negative for rales, rhonchi or wheezes Cardio regular rate, regular rhythm, S1 normal heart sound, S2 normal heart sound, no murmurs, no rub and no gallops GI normal to inspection, nondistended, normoactive bowel sounds, soft to palpation, non-tender and non-distended Extremity no clubbing, cyanosis or edema Skin no rashes or lesions noted General Skin Exam: no breakdown Neuro CN's II-XII intact bilaterally and moves all extremities Neuro Narrative: Patient is oriented as to self only, she exhibits confusion Sensorium / Orientation: awake and alert Speech: speech normal Psych Psych Narrative: Patient is confused Results Lab / Micro Data 04/20/25 07:25 04/20/25 07:25 Labs: Laboratory Results - last 24 hr 04/20/25 07:25: WBC 16.1 H, RBC 4.07 L, Hgb 12.4, Hct 38.2, MCV 93.9, MCH 30.5, MCHC 32.5, RDW Std Deviation 49.4 H, RDW Coeff of Tiffany 14.4, Plt Count 320, MPV 10.0, Immature Gran % (Auto) 0.500, Neut % (Auto) 73.5 H, Lymph % (Auto) 16.6 L, [place] % (Auto) 7.8, Eos % (Auto) 0.6, Baso % (Auto) 1.0, Absolute Neuts (auto) 11.8 H, Absolute Lymphs (auto) 2.67, Nucleated RBC % 0, Sodium 143, Potassium 3.4, Chloride 103, Carbon Dioxide 25.5, Anion Gap 14, BUN 17, Creatinine 1.33 H, Estim Creat Clear Calc 31.67 L, Est GFR (MDRD) Non-Af 39 L, BUN/Creatinine Ratio 12.6, Glucose 117 H, Calcium 9.3, Total Bilirubin 0.71, AST 42 H, ALT 19, Alkaline Phosphatase 67, Total Protein 7.5, Albumin 3.6, Globulin 4.0, Albumin/Globulin Ratio 0.9, Urine Color Yellow, Urine Clarity Cloudy, Urine pH 6.5, Ur Specific [place] 1.010, Urine Protein 100 H, Urine Glucose (UA) Normal, Urine Ketones Negative, Urine Occult Blood 250 H, Urine Nitrite Negative, Urine Bilirubin Negative, Urine Urobilinogen Normal, Ur Leukocyte Esterase 500 H, Urine RBC 0 SEEN, Urine WBC >100 SEEN, Ur Squamous Epith Cells 0 SEEN, Urine Bacteria 0 SEEN, Urine Mucus 0 SEEN 04/20/25 08:15: Lactic Acid 2.1 H* Imaging Radiology Impression Chest X-Ray 04/20/25 07:20 IMPRESSION: Stable examination suggestive of chronic interstitial fibrosis. Reading Location: [place] [id number] Assessment & Plan Assessment/Plan (1) UTI (urinary tract infection): PLAN: Plan 1. Severe sepsis from urinary tract infection-patient will be admitted to PCU, cefepime will be administered, labs will be monitored, cultures are pending #2 chronic interstitial lung disease-complicates care, management, recovery, and prognosis, patient's pulse ox on room air was 95%. #3 metabolic encephalopathy on a backdrop of chronic cognitive impairment-type unknown-patient will be given supportive care, complicates care, management, recovery, and prognosis, patient will be seen by speech therapy due to concerns of giving the patient oral intake #4 hypothyroidism-patient is on Synthroid #5 GERD-patient will be placed on IV Protonix #6 cardiomyopathy-etiology unclear, patient's last echocardiogram showed an EF of 45%, I believe patient needs fluids at this point, fluid administration tomorrow will have to be reexamined #7 pulmonary hypertension-complicates care, management, recovery, and prognosis Total clinical time spent by myself addressing the patient's medical issues, reviewing all of her data, and collaborating with patient's care team: 75 minutes Charges/Coding Visit Charges Inpatient E&M: 48014 Init Hosp L3
--- NOTE | 2025-04-20 14:08 | CASEMGMT ---
YONY STROUD Readmission Note Previous Admission: 04/01/25-04/05/25 Diagnosis: sepsis, unresponsiveness DC Disposition: Home with [facility] Current Admission: Admitted 04/20/25 Current Diagnosis: severe sepsis Pt dc'd from previous admission to home with [facility] for SN, PT, OT and ST services. Pt also has a private duty rn M/W/F for 3 hours. Pt had UTI and a small R cerebellar infarct per MRI of the brain as well as chronic heart failure and elevated troponins. Pt troponins trended down and pt was to follow up with cardiology post dc. Pt was to f/u with PCP in 1 wk and cardio in 1 month. Noted per chart pt is active with palliative care, email sent to them to confirm. Pt presented with lethargy and generalized weakness and confusion. YONY STROUD into pt room, pt sitting up in chair in no distress. Pt was able to state first name, not last. Pt did know the president but not where she was or the year. TC to pt dtr aron Pedroza requesting returned call. Per chart pt lives with dtr in a mobile home with a ramp to enter. Pt has a walker and medic alert. YONY STROUD to follow and await dtr's returned call. DC Plan: TBD
[2025-04-20 14:17] LABS: Lactic Acid 2.3 mmol/L (0.0-2.0)
[2025-04-20] MEDS: Potassium Chloride Oral Tablet 20 MEQ 40 MEQ PO (14:57)
[2025-04-20] MEDS: Cefepime HCl 1 GM in 0.9% Normal Saline (50mL MB+) 50 ML IV ×2 (14:57→21:36)
[2025-04-20] MEDS: Atorvastatin Calcium 40 MG Tablet PO (21:37)
[2025-04-21] VITALS (17 sets, daily range): BP systolic 103–169; BP diastolic 58–104; PULSE 69–137; RESP 18–26; TEMP 36.4–37.6; O2SAT 2–99
--- NOTE | 2025-04-21 05:44 | EKG12_ITS ---
Test Reason : CP Blood Pressure : */* mmHG Vent. Rate : 107 BPM Atrial Rate : 107 BPM P-R Int : 174 ms QRS Dur : 74 ms QT Int : 348 ms P-R-T Axes : 30 -7 114 degrees QTcB Int : 464 ms Sinus tachycardia with frequent Premature ventricular complexes Septal infarct , age undetermined Abnormal ECG When compared with ECG of 20-Apr-2025 08:19, MANUAL COMPARISON REQUIRED DATA IS UNCONFIRMED Confirmed by TERESA GALLO, GARETT ([id number]), editorial manager GINO MAGALLANES ([id number]) on 04/24/2025 6:37:49 AM Referred By: CURRY Confirmed By: GARETT MOORE MD
[2025-04-21] MEDS: Levothyroxine 50 MCG Tablet PO (05:56)
--- NOTE | 2025-04-21 06:07 | NURSING ---
pt became tachy on monitor 130-140's. went in pts room. pt was tachypneic, and c/o sob, and cp. pt desating to 85% on RA, pt wheezy and put on 5l NC. stopped IVF. vitals taken. supervisor in charge made aware. ordered EKG, CXR and labs. pt now on 3L NC satting 96-98%. pt states she feels much better.
--- NOTE | 2025-04-21 06:10 | RAD_ITS ---
PROCEDURE: CHEST 1 VIEW (PORTABLE) 04/21/2025 REASON FOR EXAM: ACUTE SHORTNESS OF BREATH TECHNIQUE: Frontal view of the chest. COMPARISON: 04/20/2025. FINDINGS: Unchanged chronic multifocal interstitial pulmonary thickening. Metallic clips are noted in the right chest wall, unchanged. Mild bilateral basilar atelectatic pulmonary changes. There is no demonstrated pleural abnormality. Enlarged cardiac silhouette. Normal mediastinum and chaparro. Normal visualized pulmonary arteries. Atheromatous plaques of the visualized aortic arch and descending thoracic aorta. Diffuse spondylosis of the visualized thoracic spine. Normal visualized ribs, clavicles. Degenerative joint disease. There is no demonstrated abnormality of the visualized soft tissue structures of the upper abdomen. RAD/Chest 1 View (Portable) IMPRESSION: Unchanged chronic multifocal interstitial pulmonary thickening. Metallic clips are noted in the right chest wall, unchanged. Mild bilateral basilar atelectatic pulmonary changes. There is no demonstrated pleural abnormality. Enlarged cardiac silhouette. Reading [facility]
[2025-04-21 06:52] LABS: Absolute Lymphocyte Count 2.24 X10^3/uL (0.83-4.51); Absolute Neutrophil Count 9.6 X10^3/uL (2.0-7.7); Basophil% 0.8 % (0-1); Eosinophil# 0.04 X10^3/uL; Eosinophils% 0.3 % (0-5); Hematocrit 37.1 % (37-47); Hemoglobin 11.9 g/dL (12.0-15.0); Lymphocyte # 2.24 X10^3/ul (0.83-4.51); Lymphocyte % 17.2 % (19-41); Mean Corp Hgb Conc 32.1 g/dL (32-36); Mean Corpuscular Hgb 30.4 pg (27.0-32.0); Mean Corpuscular Volume 94.9 fL (81-99); Mean Platelet Vol. 10.7 fl (6.2-12.0); Monocyte# 0.93 X10^3/uL; Monocyte% 7.2 % (0-10); NRBC Flagged by Analyzer 0 % (0-5); Neutrophil # 9.63 X10^3/uL (2.7-7.7); Neutrophil % 74.1 % (47-70); Platelet Count 272 K/mm3 (150-450); RBC Distribution Width CV 14.1 % (11.6-14.6); RBC Distribution Width SD 48.6 fl (35.1-43.9); Red Blood Count 3.91 M/mm3 (4.2-5.4)
[2025-04-21 06:53] LABS: Base Excess 2 mmol/L (-2 to +2); Bicarbonate 24.9 mmol/L (22-26); Blood Gas Specimen Type ART; Mode Not entered; O2 Delivery Device Cannula; PO2 80 mmHG (75-100); SITE L Brach; SO2 97 % (95-99); Total Carbon Dioxide 26 mmol/L; pCO2 32.9 mmHg (35-45); pH 7.49 (7.35-7.45)
[2025-04-21 07:29] LABS: Anion Gap 13 (5-15); BUN 17 mg/dL (4-19); BUN/Creat Ratio 13.5 RATIO (10-20); Calcium,Total 8.7 mg/dL (7.6-11.0); Carbon Dioxide 21.2 mmol/L (21.0-32.0); Chloride 109 mmol/L (98-108); Creatinine, Serum 1.27 mg/dL (0.70-1.20); EST Glomerular Filtration Rate 42 (>60); Estimated Creatinine Clearance 32.69 ml/min (50-250); Glucose 120 mg/dL (70-99); Potassium 3.6 mmol/L (3.3-5.1); Sodium Level 143 mmol/L (133-145)
--- NOTE | 2025-04-21 07:46 | PN.HOSP_ITS ---
Reason for Visit Reason for Visit: Diagnoses Urinary tract infection, site not specified (04/20/25) Subjective Subjective Feels well. No new complaints. Objective Data Objective Data Vital Signs: Vital Signs Temp Pulse Resp BP Pulse Ox O2 Del Method O2 Flow Rate 37.2 C 97 18 158/93 H 96 Nasal Cannula 2 04/21/25 05:59 04/21/25 06:38 04/21/25 06:38 04/21/25 05:59 04/21/25 06:38 04/21/25 06:38 04/21/25 06:38 Oxygen Flow Rate (L/min) 2 Oxygen Delivery Method Nasal Cannula Weight: 78.4 kg Body Mass Index (BMI) 30.6 Intake & Output: Intake and Output for Last 24 Hours 04/19/25 04/20/25 04/21/25 23:59 23:59 23:59 Intake Total 2180 / 2180 813.33 / 813.33 Output Total 1050 / 1050 Balance 2180 / 1880 -236.67 / -236.67 Lab / Micro Data 04/21/25 06:30 04/21/25 06:30 Labs: Laboratory Results - last 24 hr 04/20/25 07:25: Sodium 143, Potassium 3.4, Chloride 103, Carbon Dioxide 25.5, Anion Gap 14, BUN 17, Creatinine 1.33 H, Estim Creat Clear Calc 31.67 L, Est GFR (MDRD) Non-Af 39 L, BUN/Creatinine Ratio 12.6, Glucose 117 H, Calcium 9.3, Total Bilirubin 0.71, AST 42 H, ALT 19, Alkaline Phosphatase 67, Total Protein 7.5, Albumin 3.6, Globulin 4.0, Albumin/Globulin Ratio 0.9, Urine Color Yellow, Urine Clarity Cloudy, Urine pH 6.5, Ur Specific Lynn 1.010, Urine Protein 100 H, Urine Glucose (UA) Normal, Urine Ketones Negative, Urine Occult Blood 250 H, Urine Nitrite Negative, Urine Bilirubin Negative, Urine Urobilinogen Normal, Ur Leukocyte Esterase 500 H, Urine RBC 0 SEEN, Urine WBC >100 SEEN, Ur Squamous Epith Cells 0 SEEN, Urine Bacteria 0 SEEN, Urine Mucus 0 SEEN 04/20/25 08:15: Lactic Acid 2.1 H* 04/20/25 13:06: Lactic Acid 2.3 H* 04/21/25 06:30: WBC 13.0 H, RBC 3.91 L, Hgb 11.9 L, Hct 37.1, MCV 94.9, MCH 30.4, MCHC 32.1, RDW Std Deviation 48.6 H, RDW Coeff of Tiffany 14.1, Plt Count 272, MPV 10.7, Immature Gran % (Auto) 0.400, Neut % (Auto) 74.1 H, Lymph % (Auto) 17.2 L, [place] % (Auto) 7.2, Eos % (Auto) 0.3, Baso % (Auto) 0.8, Absolute Neuts (auto) 9.6 H, Absolute Lymphs (auto) 2.24, Nucleated RBC % 0, Sodium 143, Potassium 3.6, Chloride 109 H, Carbon Dioxide 21.2, Anion Gap 13, BUN 17, C reatinine 1.27 H, Estim Creat Clear Calc 32.69 L, Est GFR (MDRD) Non-Af 42 L, BUN/Creatinine Ratio 13.5, Glucose 120 H, Calcium 8.7 ABG Data ABG results: ABG 04/21/25 06:49 Specimen Type ART Sample Site L Brach pH 7.49 H Bicarbonate Actual 24.9 Total CO2 26 Base Excess 2 O2 Saturation 97 O2 % 3.0 ABG pCO2 32.9 L ABG pO2 80 O2 Delivery Device Cannula Vent Mode Not entered Radiography Diagnostic Testing: Radiology Impression Chest X-Ray 04/20/25 07:20 IMPRESSION: Stable examination suggestive of chronic interstitial fibrosis. Reading Location: [facility] Chest X-Ray 04/21/25 06:10 IMPRESSION: Unchanged chronic multifocal interstitial pulmonary thickening. Metallic clips are noted in the right chest wall, unchanged. Mild bilateral basilar atelectatic pulmonary changes. There is no demonstrated pleural abnormality. Enlarged cardiac silhouette. [facility] Physical Exam HEENT head/scalp atraumatic and moist oral mucous membranes Resp normal respiratory effort, no retractions, no use of accessory muscles and clear to auscultation bilaterally Cardio regular rate, regular rhythm, S1 normal heart sound and S2 normal heart sound GI normal to inspection, nondistended, normoactive bowel sounds, soft to palpation, non-tender and non-distended Extremity normal to inspection and full ROM Neuro Sensorium / Orientation: awake and alert Assessment & Plan Assessment/Plan (1) Sepsis: PLAN: 2/2 UTI Follow-up cultures (2) UTI (urinary tract infection): PLAN: Urine culture pending On cefepime (3) Encephalopathy acute: PLAN: Resolved Secondary to sepsis and UTI. Patient did have an MRI of the brain on April 02 that showed absent flow void in the left vertebral artery consistent with obstruction. Cerebellar atrophy. 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 PLAN: Plan Chronic condition * Hyperlipidemia: Continue statin * Hypothyroidism: Continue with levothyroxine * Cardiomyopathy: Echo on April 02 showed EF of 45% with stage II diastolic dysfunction. Mild bilateral atrial dilation. Severe 4+ tricuspid valve insufficiency. Right ventricular systolic pressure of 56 mmHg. Will cycle troponins. They were elevated to the 300s last admission, now 173. VTE prophylaxis with heparin Charges/Coding Visit Charges Inpatient E&M: 82154 Subs Hosp L2
[2025-04-21 07:59] LABS: Pro- Brain NATRIURETIC PEPTIDE 8435 pg/mL (<=1800)
[2025-04-21] MEDS: Aspirin 81 MG TAB.CHEW PO (08:35)
[2025-04-21] MEDS: Metoprolol Tartrate 25 MG Tablet PO ×2 (08:36→21:34)
[2025-04-21] MEDS: Midodrine HCl 5 MG Tablet 10 MG PO ×3 (08:36→16:27)
[2025-04-21] MEDS: Heparin Injection (Vial) 5,000 UNIT/ML VIAL 5000 UNIT SC ×2 (08:37→21:35)
[2025-04-21] MEDS: Pantoprazole Sodium 20 MG Tablet PO (08:37)
[2025-04-21 08:44] LABS: Troponin T High Sensitivity 173 ng/L (<=14)
[2025-04-21] MEDS: Cefepime HCl 1 GM in 0.9% Normal Saline (50mL MB+) 50 ML IV ×2 (09:35→21:35)
--- NOTE | 2025-04-21 10:02 | CASEMGMT ---
Noted pt is still with confusion. TC to pt dtr to discuss dc planning. Pt dtr reports pt is active with [facility]. States ST and OT were 1x visits but SN and PT was continuing. Pt dtr reports she felt OT was offensive to her and she has been up all night until 4am trying to do things around the house that the OT recommended. Spent a great deal of time listening and providing support to pt dtr. She reports she does not know when her mother has a UTI until it gets too far. She reports palliative care is active as well. She has private duty aides from [employer] [facility] for 3 hours per day. Pt did see the digital measurement advisor since last hospitalization and no changes were made. Dtr rescheduled PCP appt as pt was unable to make it to that appt. Pt dtr tearful throughout conversation, encouraged her to take care of herself. She speaks of difficult family dynamics. Attempted to discuss dc planning and dtr is unable to do this at this time. RN CM to follow. Pt lives in mobile home with dtr with ramp to enter. Pt has a walker and medic alert. Time on phone=32minutes. DC Plan: TBD
--- NOTE | 2025-04-21 10:10 | NURSING ---
Dr jackson assessed pt, including abd and oral., ordered clear liquids
[2025-04-21] MEDS: Gabapentin 100 MG Capsule PO (10:50)
[2025-04-21] MEDS: 0.9% Saline Lock 10 ML Syringe IV (10:50)
[2025-04-21 11:12] LABS: Troponin T High Sens 2 HR 176 ng/L (<=14)
[2025-04-21] MEDS: Furosemide 20 MG Tablet PO (12:34)
[2025-04-21 12:47] LABS: Troponin T High Sens 4 HR 170 ng/L (<=14)
--- NOTE | 2025-04-21 14:37 | NURSING ---
updated daughter Roger, plans to come in to see her mom.
[2025-04-21] MEDS: Nystatin Powder 15gm Bottle 1 APPLIC TOPICAL (21:34)
[2025-04-21] MEDS: Atorvastatin Calcium 40 MG Tablet PO (21:34)
[2025-04-22] VITALS (9 sets, daily range): BP systolic 104–141; BP diastolic 63–73; PULSE 67–85; RESP 16–18; TEMP 36.1–36.8; O2SAT 93–99
[2025-04-22 04:35] LABS: Absolute Lymphocyte Count 3.63 X10^3/uL (0.83-4.51); Absolute Neutrophil Count 5.5 X10^3/uL (2.0-7.7); Basophil# 0.12 X10^3/uL; Basophil% 1.1 % (0-1); Eosinophil# 0.48 X10^3/uL; Eosinophils% 4.5 % (0-5); Hematocrit 31.6 % (37-47); Hemoglobin 10.6 g/dL (12.0-15.0); Lymphocyte # 3.63 X10^3/ul (0.83-4.51); Lymphocyte % 34.2 % (19-41); Mean Corp Hgb Conc 33.5 g/dL (32-36); Mean Corpuscular Hgb 31.8 pg (27.0-32.0); Mean Corpuscular Volume 94.9 fL (81-99); Mean Platelet Vol. 12.2 fl (6.2-12.0); Monocyte# 0.81 X10^3/uL; Monocyte% 7.6 % (0-10); NRBC Flagged by Analyzer 0 % (0-5); Neutrophil # 5.54 X10^3/uL (2.7-7.7); Neutrophil % 52.3 % (47-70); Platelet Count 197 K/mm3 (150-450); RBC Distribution Width CV 14.5 % (11.6-14.6); RBC Distribution Width SD 50.3 fl (35.1-43.9); Red Blood Count 3.33 M/mm3 (4.2-5.4); White Blood Count 10.6 K/mm3 (4.4-11.0)
[2025-04-22 05:19] LABS: Anion Gap 11 (5-15); BUN 19 mg/dL (4-19); BUN/Creat Ratio 14.8 RATIO (10-20); Calcium,Total 8.5 mg/dL (7.6-11.0); Carbon Dioxide 23.6 mmol/L (21.0-32.0); Chloride 108 mmol/L (98-108); Creatinine, Serum 1.25 mg/dL (0.70-1.20); EST Glomerular Filtration Rate 43 (>60); Estimated Creatinine Clearance 33.21 ml/min (50-250); Glucose 79 mg/dL (70-99); Potassium 3.2 mmol/L (3.3-5.1); Sodium Level 142 mmol/L (133-145)
[2025-04-22] MEDS: Nystatin Powder 15gm Bottle 1 APPLIC TOPICAL ×3 (05:52→21:59)
[2025-04-22] MEDS: Levothyroxine 50 MCG Tablet PO (05:53)
--- NOTE | 2025-04-22 07:54 | PN.HOSP_ITS ---
Reason for Visit Reason for Visit: Diagnoses Sepsis, unspecified organism (04/20/25) Encephalopathy, unspecified (04/20/25) Urinary tract infection, site not specified (04/20/25) Subjective Subjective Feeling well. No new complaints. Does not want to go to a SNF, but rather home. She is ok with [facility]. Objective Data Objective Data Vital Signs: Vital Signs Temp Pulse Resp BP Pulse Ox O2 Del Method O2 Flow Rate 36.8 C 73 18 141/66 H 99 Nasal Cannula 2 04/22/25 03:30 04/22/25 03:30 04/22/25 03:30 04/22/25 03:30 04/22/25 03:30 04/22/25 03:30 04/22/25 03:30 Oxygen Flow Rate (L/min) 2 Oxygen Delivery Method Nasal Cannula Weight: 78.4 kg Body Mass Index (BMI) 30.6 Intake & Output: Intake and Output for Last 24 Hours 04/20/25 04/21/25 04/22/25 23:59 23:59 23:59 Intake Total 2180 / 2180 1793.33 / 1793.33 280 / 280 Output Total 1750 / 1750 100 / 100 Balance 2180 / 1880 43.33 / 43.33 180 / 180 Lab / Micro Data 04/22/25 03:40 04/22/25 03:40 Labs: Laboratory Results - last 24 hr 04/21/25 06:30: NT pro BNP II 8435 H 04/21/25 08:03: Troponin T High Sens 173 H* D 04/21/25 10:00: Troponin T Hi Sens 2 Hr 176 H* 04/21/25 11:50: Troponin T Hi Sens 4Hr 170 H* 04/22/25 03:40: WBC 10.6, RBC 3.33 L, Hgb 10.6 L, Hct 31.6 L, MCV 94.9, MCH 31.8, MCHC 33.5, RDW Std Deviation 50.3 H, RDW Coeff of Tiffany 14.5, Plt Count 197, MPV 12.2 H, Immature Gran % (Auto) 0.300, Neut % (Auto) 52.3, Lymph % (Auto) 34.2, [place] % (Auto) 7.6, Eos % (Auto) 4.5, Baso % (Auto) 1.1 H, Absolute Neuts (auto) 5.5, Absolute Lymphs (auto) 3.63, Nucleated RBC % 0, Sodium 142, P otassium 3.2 L, Chloride 108, Carbon Dioxide 23.6, Anion Gap 11, BUN 19, C reatinine 1.25 H, Estim Creat Clear Calc 33.21 L, Est GFR (MDRD) Non-Af 43 L, BUN/Creatinine Ratio 14.8, Glucose 79, Calcium 8.5 Micro: Microbiology 04/20/25 07:25 Urine Catheter - Catheter Urine Culture - Preliminary GNR lactose presser all around Physical Exam Const alert and no apparent distress HEENT head/scalp atraumatic and moist oral mucous membranes Resp normal respiratory effort, no retractions, no use of accessory muscles and clear to auscultation bilaterally Cardio regular rate, regular rhythm, S1 normal heart sound and S2 normal heart sound GI normal to inspection, nondistended, normoactive bowel sounds, soft to palpation, non-tender and non-distended Neuro Sensorium / Orientation: awake and alert Assessment & Plan Assessment/Plan (1) Sepsis: PLAN: 12/03 UTI Follow-up cultures (2) UTI (urinary tract infection): PLAN: Urine culture showing Klebsiella aerogenes, sensitive to all, but nitrofurantoin. On cefepime, will discharge with cipro to complete a 7-day course of abx. (3) Encephalopathy acute: PLAN: Resolved Secondary to sepsis and UTI. Patient did have an MRI of the brain on April 02 that showed absent flow void in the left vertebral artery consistent with obstruction. Cerebellar atrophy. 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 (4) NSTEMI, initial episode of care: PLAN: Troponins in the 170s. Down from 300s earlier this month. Likely demand ischemia from sepsis with known cardiomyopathy. Seen by cardiology earlier this month. Recommendation was medical mgmt at that time and follow up with her [facility] metal hanger in 7-14 days. Echo on April 02 showed EF of 45% with stage II diastolic dysfunction. Mild bilateral atrial dilation. Severe 4+ tricuspid valve insufficiency. Right ventricular systolic pressure of 56 mmHg. Continue metoprolol tartrate, torsemide. Sacubitril/valsartan was not restarted when she was discharged last admission due to issues with hypotension and was started on midodrine at that time. Will restart as blood pressure is currently stable. PLAN: Plan Chronic condition * Hyperlipidemia: Continue statin * Hypothyroidism: Continue with levothyroxine VTE prophylaxis with heparin DC home with [facility].
[2025-04-22] MEDS: SACUBITRIL/VALSARTAN 24/26 MG TABLET 1 EACH PO ×2 (09:32→21:58)
[2025-04-22] MEDS: Pantoprazole Sodium 20 MG Tablet PO (09:32)
[2025-04-22] MEDS: Furosemide 20 MG Tablet PO (09:32)
[2025-04-22] MEDS: Gabapentin 100 MG Capsule PO (09:32)
[2025-04-22] MEDS: Heparin Injection (Vial) 5,000 UNIT/ML VIAL 5000 UNIT SC ×2 (09:32→21:55)
[2025-04-22] MEDS: Midodrine HCl 5 MG Tablet 10 MG PO ×3 (09:32→16:27)
[2025-04-22] MEDS: Aspirin 81 MG TAB.CHEW PO (09:32)
[2025-04-22] MEDS: Metoprolol Tartrate 25 MG Tablet PO ×2 (09:32→21:58)
[2025-04-22] MEDS: Ergocalciferol 1.25 MG (50, 000 UNIT) Capsule PO (09:32)
[2025-04-22] MEDS: Cefepime HCl 1 GM in 0.9% Normal Saline (50mL MB+) 50 ML IV (09:38)
--- NOTE | 2025-04-22 13:25 | PCM.DC.SUM ---
Providers Date of Admission: 04/20/25 Primary Care Physician: Dr. Jonn Gallagher MD Reason For Visit: SEVERE SEPSIS Diagnosis Discharge Diagnosis (1) Sepsis: Status: Resolved Code(s): A41.9 - Sepsis, unspecified organism Plan: / UTI Follow-up cultures (2) UTI (urinary tract infection): Status: Acute Code(s): N39.0 - Urinary tract infection, site not specified Plan: Urine culture showing Klebsiella aerogenes, sensitive to all, but nitrofurantoin. On cefepime, will discharge with cipro to complete a 7-day course of abx. (3) Encephalopathy acute: Status: Acute Code(s): G93.40 - Encephalopathy, unspecified Plan: Resolved Secondary to sepsis and UTI. Patient did have an MRI of the brain on April 02 that showed absent flow void in the left vertebral artery consistent with obstruction. Cerebellar atrophy. 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 (4) NSTEMI, initial episode of care: Status: Acute Code(s): I21.4 - Non-ST elevation (NSTEMI) myocardial infarction Plan: Troponins in the 170s. Down from 300s earlier this month. Likely demand ischemia from sepsis with known cardiomyopathy. Seen by cardiology earlier this month. Recommendation was medical mgmt at that time and follow up with her [facility] engineering geologist in 7-14 days. Echo on April 02 showed EF of 45% with stage II diastolic dysfunction. Mild bilateral atrial dilation. Severe 4+ tricuspid valve insufficiency. Right ventricular systolic pressure of 56 mmHg. Continue metoprolol tartrate, torsemide. Sacubitril/valsartan was not restarted when she was discharged last admission due to issues with hypotension and was started on midodrine at that time. Will restart as blood pressure is currently stable. Plan Chronic condition Hyperlipidemia: Continue statin Hypothyroidism: Continue with levothyroxine VTE prophylaxis with heparin DC home with [facility]. Medications at Discharge Home Medications omeprazole 20 mg capsule,delayed release 20 mg PO DAILY HEARTBURN 01/19/14 cetirizine 10 mg tablet 10 mg PO DAILY ALLERGIES 04/14/21 ergocalciferol (vitamin D2) 1,250 mcg (50,000 unit) capsule 50,000 unit PO VILLARREAL SUPPLEMENT 04/14/21 levothyroxine 75 mcg tablet 75 mcg PO MOTUWETH THYROID 04/14/21 levothyroxine 50 mcg tablet 50 mcg PO SUFRSA THYROID 11/01/22 acetaminophen 500 mg tablet 1,000 mg PO Q6H PRN pain 04/01/25 albuterol sulfate 90 mcg/actuation aerosol inhaler (Ventolin HFA) 2 inh inhalation Q6H PRN shortness of breath or wheezing 04/01/25 exemestane 25 mg tablet 25 mg PO DAILY HORMONE 04/01/25 gabapentin 100 mg capsule 100 mg PO DAILY NERVE PAIN 04/01/25 ondansetron 4 mg disintegrating tablet 4 mg PO Q6H PRN nausea and vomiting 04/01/25 potassium chloride 10 mEq tablet,extended release 10 meq PO DAILY SUPPLEMENT 04/01/25 torsemide 20 mg tablet 10 mg PO DAILY WATER PILL 04/01/25 aspirin 81 mg chewable tablet 81 mg PO BREAKFAST #30 tabs 04/05/25 atorvastatin 40 mg tablet (Lipitor) 40 mg PO DAILY #30 tabs 04/05/25 metoprolol tartrate 25 mg tablet 25 mg PO BID #60 tabs 04/05/25 midodrine 5 mg tablet 10 mg (2 x 5 mg) PO TIDCM #90 tabs 04/05/25 ciprofloxacin HCl 500 mg tablet 500 mg PO Q12H #10 tabs 04/22/25 sacubitril 24 mg-valsartan 26 mg tablet (Entresto) 1 tab PO BID #60 tabs 04/22/25 Hospital Course Operations None Procedures None Summary of Care Provided Minutes Spent on Discharge: 32 Hospital Course: This is an 85-year-old female presents with lethargy. She was diagnosed with a UTI which was initially treated with cefepime but eventually grew out Klebsiella which was pansensitive with the exception of intermediate sensitivity to nitrofurantoin. Patient be discharged with ciprofloxacin complete a 7-day course of antibiotics. She was septic upon arrival but did not receive 30 cc/kg of IV fluid given history of heart failure and concern for worsening respiratory status. Patient was confused but that that has since improved and patient is at her baseline. We did offer the patient to evaluate for senior living facility placement but she has declined preferring to go to home with home care. Weight / BMI Weight Weight: 78.4 kg Body Mass Index (BMI) 30.6 ABG / Lab / Microbiology Data 04/22/25 03:40 04/22/25 03:40 Laboratory: Laboratory Results - last 24 hr 04/22/25 03:40: WBC 10.6, RBC 3.33 L, Hgb 10.6 L, Hct 31.6 L, MCV 94.9, MCH 31.8, MCHC 33.5, RDW Std Deviation 50.3 H, RDW Coeff of Tiffany 14.5, Plt Count 197, MPV 12.2 H, Immature Gran % (Auto) 0.300, Neut % (Auto) 52.3, Lymph % (Auto) 34.2, [place] % (Auto) 7.6, Eos % (Auto) 4.5, Baso % (Auto) 1.1 H, Absolute Neuts (auto) 5.5, Absolute Lymphs (auto) 3.63, Nucleated RBC % 0, Sodium 142, Potassium 3.2 L, Chloride 108, Carbon Dioxide 23.6, Anion Gap 11, BUN 19, Creatinine 1.25 H, Estim Creat Clear Calc 33.21 L, Est GFR (MDRD) Non-Af 43 L, BUN/Creatinine Ratio 14.8, Glucose 79, Calcium 8.5 Microbiology: Microbiology 04/20/25 07:25 Urine Catheter - Catheter Urine Culture - Final Klebsiella aerogenes D/C Instructions Discharge Diet: No restrictions DC O2, CPAP, BIPAP Needs Home O2 Discharge instructions: No Meaningful Use Info Meaningful Use Meaningful Use Diagnoses (Choose all that apply): None applicable Ischemic Stroke Statin Dosing Therapy Reference: STATIN DOSE THERAPY REFERENCE: * Patients > 75 years receive moderate or high dose statin therapy. * Patients 75 years or YOUNGER should receive HIGH intensity statin dose unless contraindicated. You will be required to document reason for non-treatment if statin daily dose does not meet guidelines. HIGH DOSE STATIN THERAPY DAILY Atorvastatin > than or = to 40 mg Rosuvastatin > than or = to 20 mg Amlodipine + Atorvastatin > than or = to 2.5/40 mg Ezetimibe + Simvastatin 10/80 mg Simvastatin 80mg Discharge Plan Admission Admit Date/Time: 04/20/25 09:32 Primary Reason for Your Visit: Urinary tract infection Attending Provider: Justo Silva Primary Care Provider: Jonn Gallagher Consulting Providers: Isaac Dee Discharge Orders/Prescriptions Prescriptions: New Entresto 24-26 mg Tablet 1 tab PO BID Qty: 60 0RF ciprofloxacin HCl 500 mg tablet 500 mg PO Q12H Qty: 10 0RF Continued omeprazole 20 MG capsule 20 mg PO DAILY cetirizine 10 mg Tablet 10 mg PO DAILY levothyroxine 75 mcg Tablet 75 mcg PO MOTUWETH Patient Comments: TAKE 75 MCGS WEDNESDAY TO WEDNESDAY ON AN EMPTY STOMACH AND 50 MCGS WEDNESDAY TO WEDNESDAY FOR FOR THYROID ergocalciferol (vitamin D2) 1,250 mcg (50,000 unit) capsule 50,000 unit PO VILLARREAL levothyroxine 50 mcg tablet 50 mcg PO SUFRSA Patient Comments: TAKE 75 MCGS WEDNESDAY TO WEDNESDAY ON AN EMPTY STOMACH AND 50 MCGS WEDNESDAY TO WEDNESDAY FOR FOR THYROID acetaminophen 500 mg tablet 1,000 mg PO Q6H PRN (Reason: pain) albuterol sulfate [Ventolin HFA] 90 mcg/actuation HFA aerosol inhaler 2 inh inhalation Q6H PRN (Reason: shortness of breath or wheezing) gabapentin 100 mg capsule 100 mg PO DAILY ondansetron 4 mg tablet,disintegrating 4 mg PO Q6H PRN (Reason: nausea and vomiting) exemestane 25 mg tablet 25 mg PO DAILY potassium chloride 10 mEq tablet extended release 10 meq PO DAILY torsemide 20 mg tablet 10 mg PO DAILY midodrine 5 mg Tablet 10 mg PO TIDCM Qty: 90 2RF aspirin 81 mg Tablet,Chewable 81 mg PO BREAKFAST Qty: 30 2RF metoprolol tartrate 25 mg tablet 25 mg PO BID Qty: 60 2RF atorvastatin [Lipitor] 40 mg tablet 40 mg PO DAILY Qty: 30 2RF Referrals / Follow Up: [facility] [Provider Group] - Within 1 Month Julissa Ariza MD [Med Staff - [place]] - Jonn Gallagher MD [Primary Care Provider] - Within 2 Weeks Disposition Disposition (needs filled in before D/C Order can be placed): Home Health Service Charges/Coding Visit Charges Inpatient E&M: 72222 Disch Hosp >30min
--- NOTE | 2025-04-22 19:52 | NURSING ---
Daughter is tearful and states that she isn't able to care for her mother. Daughter states that her mom needs to go somewhere that they can take care of her.
[2025-04-22] MEDS: Menthol/Lanolin/Calamine/Znox 113 GM Tube 1 APPLIC TOPICAL (21:53)
[2025-04-22] MEDS: 0.9% Saline Lock 10 ML Syringe IV (21:55)
[2025-04-22] MEDS: Atorvastatin Calcium 40 MG Tablet PO (21:58)
[2025-04-22] MEDS: Ciprofloxacin 500 MG Tablet PO (21:58)
[2025-04-23 03:26] VITALS: BP 139/82; PULSE 76; RESP 18; TEMP 36.8; O2SAT 94
[2025-04-23] MEDS: Levothyroxine 75 MCG Tablet PO (05:20)
[2025-04-23] MEDS: Nystatin Powder 15gm Bottle 1 APPLIC TOPICAL ×2 (05:20→14:16)
[2025-04-23 05:49] LABS: Absolute Lymphocyte Count 3.23 X10^3/uL (0.83-4.51); Absolute Neutrophil Count 5.9 X10^3/uL (2.0-7.7); Eosinophil# 0.47 X10^3/uL; Eosinophils% 4.5 % (0-5); Hematocrit 34.8 % (37-47); Hemoglobin 11.4 g/dL (12.0-15.0); Lymphocyte # 3.23 X10^3/ul (0.83-4.51); Mean Corp Hgb Conc 32.8 g/dL (32-36); Mean Corpuscular Hgb 30.2 pg (27.0-32.0); Mean Corpuscular Volume 92.3 fL (81-99); Mean Platelet Vol. 11.2 fl (6.2-12.0); Monocyte# 0.67 X10^3/uL; Monocyte% 6.4 % (0-10); NRBC Flagged by Analyzer 0 % (0-5); Neutrophil # 5.94 X10^3/uL (2.7-7.7); Neutrophil % 56.9 % (47-70); Platelet Count 255 K/mm3 (150-450); RBC Distribution Width CV 13.7 % (11.6-14.6); RBC Distribution Width SD 46.5 fl (35.1-43.9); Red Blood Count 3.77 M/mm3 (4.2-5.4); White Blood Count 10.4 K/mm3 (4.4-11.0)
[2025-04-23 06:26] LABS: Anion Gap 11 (5-15); BUN 14 mg/dL (4-19); BUN/Creat Ratio 13.2 RATIO (10-20); Calcium,Total 8.6 mg/dL (7.6-11.0); Carbon Dioxide 23.1 mmol/L (21.0-32.0); Chloride 106 mmol/L (98-108); Creatinine, Serum 1.07 mg/dL (0.70-1.20); EST Glomerular Filtration Rate 51 (>60); Glucose 95 mg/dL (70-99); Potassium 3.1 mmol/L (3.3-5.1); Sodium Level 140 mmol/L (133-145)
[2025-04-23] MEDS: Aspirin 81 MG TAB.CHEW PO (08:32)
[2025-04-23] MEDS: Midodrine HCl 5 MG Tablet 10 MG PO ×3 (08:32→16:34)
[2025-04-23] MEDS: Menthol/Lanolin/Calamine/Znox 113 GM Tube 1 APPLIC TOPICAL (08:39)
[2025-04-23] MEDS: Loratadine 10 MG Tablet PO (08:42)
[2025-04-23] MEDS: SACUBITRIL/VALSARTAN 24/26 MG TABLET 1 EACH PO (08:42)
[2025-04-23] MEDS: Heparin Injection (Vial) 5,000 UNIT/ML VIAL 5000 UNIT SC (08:42)
[2025-04-23] MEDS: Ciprofloxacin 500 MG Tablet PO (08:42)
[2025-04-23 08:43] VITALS: PULSE 76
[2025-04-23] MEDS: Gabapentin 100 MG Capsule PO (08:43)
[2025-04-23] MEDS: Furosemide 20 MG Tablet PO (08:43)
[2025-04-23] MEDS: Pantoprazole Sodium 20 MG Tablet PO (08:43)
[2025-04-23] MEDS: Metoprolol Tartrate 25 MG Tablet PO (08:43)
[2025-04-23 09:00] VITALS: BP 147/62; PULSE 76; RESP 16; TEMP 37.1; O2SAT 95
--- NOTE | 2025-04-23 11:23 | CASEMGMT ---
Addendum entered by Iwona Russ 04/23/25 12:53: Social Work Pt's dgt choices are 1. [facility]. [place] [facility] 3. [facility]. DC ophthalmology assistant notified and to start referral process. ARVIN Solo Original Note: Social Work SW met with pt to discuss discharge plan. Pt is able to state that she has talked to her daughter and is now aware that she cannot return home with dgt but will need SNF for rehab. Pt is hopeful she can return home with dgt eventually. A list of SNF providers including quality and resource use data and consistent with the patient?s preferred geographic region, medical needs, and insurance network were provided from the [employer]. Pt states she will review list but would want her daughters input. With pt permission, phone call to pt dgt Kasia. Kasia confirms plans for SNF placement, but states that she feels it will likely be senior care. SW encouraged Kasia to review list and speak with pt and to provide 3 preferred SNFs and SW will make referrals. A list of SNF providers including quality and resource use data and consistent with the patient?s preferred geographic region, medical needs, and insurance network were provided via the [employer] Link to Kasia. Kasia agreeable to review and will call SW back. Plan: SNF, referrals to be made when pt's dgt makes choices ARVIN Villagran
--- NOTE | 2025-04-23 11:36 | PN.HOSP_ITS ---
Reason for Visit Reason for Visit: Diagnoses Sepsis, unspecified organism (04/20/25) Encephalopathy, unspecified (04/20/25) Non-ST elevation (NSTEMI) myocardial infarction (04/20/25) Urinary tract infection, site not specified (04/20/25) Subjective Subjective Feels well. No new complaints. States that she is open to what is eventually decided. Objective Data Objective Data Vital Signs: Vital Signs Temp Pulse Resp BP Pulse Ox O2 Del Method O2 Flow Rate 37.1 C 76 16 147/62 H 95 Room Air 2 04/23/25 09:00 04/23/25 09:00 04/23/25 09:00 04/23/25 09:00 04/23/25 09:00 04/23/25 09:00 04/22/25 08:04 Oxygen Flow Rate (L/min) 2 Oxygen Delivery Method Room Air Weight: 78.4 kg Body Mass Index (BMI) 30.6 Intake & Output: Intake and Output for Last 24 Hours 04/21/25 04/22/25 04/23/25 23:59 23:59 23:59 Intake Total 1793.33 / 1793.33 530 / 530 Output Total 1750 / 1750 400 / 400 200 / 200 Balance 43.33 / 43.33 130 / 130 -200 / -200 Lab / Micro Data 04/23/25 05:16 04/23/25 05:16 Labs: Laboratory Results - last 24 hr 04/23/25 05:16: WBC 10.4, RBC 3.77 L, Hgb 11.4 L, Hct 34.8 L, MCV 92.3, MCH 30.2, MCHC 32.8, RDW Std Deviation 46.5 H, RDW Coeff of Tiffany 13.7, Plt Count 255, MPV 11.2, Immature Gran % (Auto) 0.200, Neut % (Auto) 56.9, Lymph % (Auto) 31.0, [place] % (Auto) 6.4, Eos % (Auto) 4.5, Baso % (Auto) 1.0, Absolute Neuts (auto) 5.9, Absolute Lymphs (auto) 3.23, Nucleated RBC % 0, Sodium 140, Potassium 3.1 L , Chloride 106, Carbon Dioxide 23.1, Anion Gap 11, BUN 14, Creatinine 1.07, E stim Creat Clear Calc 38.80 L, Est GFR (MDRD) Non-Af 51 L, BUN/Creatinine Ratio 13.2, Glucose 95, Calcium 8.6 Micro: Microbiology 04/20/25 07:25 Urine Catheter - Catheter Urine Culture - Final Klebsiella aerogenes Physical Exam Const alert and no apparent distress HEENT head/scalp atraumatic and moist oral mucous membranes Resp normal respiratory effort, no retractions, no use of accessory muscles and clear to auscultation bilaterally Cardio regular rate, regular rhythm, S1 normal heart sound and S2 normal heart sound GI normal to inspection, nondistended, normoactive bowel sounds and soft to palpation Extremity normal to inspection Assessment & Plan Assessment/Plan (1) Sepsis: PLAN: 12/03 UTI Follow-up cultures (2) UTI (urinary tract infection): PLAN: Urine culture showing Klebsiella aerogenes, sensitive to all, but nitrofurantoin. On cefepime, will discharge with cipro to complete a 7-day course of abx. (3) Encephalopathy acute: PLAN: Resolved Secondary to sepsis and UTI. Patient did have an MRI of the brain on April 02 that showed absent flow void in the left vertebral artery consistent with obstruction. Cerebellar atrophy. 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 (4) NSTEMI, initial episode of care: PLAN: Troponins in the 170s. Down from 300s earlier this month. Likely demand ischemia from sepsis with known cardiomyopathy. Seen by cardiology earlier this month. Recommendation was medical mgmt at that time and follow up with her [facility] transitional care nurse in 7-14 days. Echo on April 02 showed EF of 45% with stage II diastolic dysfunction. Mild bilateral atrial dilation. Severe 4+ tricuspid valve insufficiency. Right ventricular systolic pressure of 56 mmHg. Continue ASA, metoprolol tartrate, torsemide. Sacubitril/valsartan was not restarted when she was discharged last admission due to issues with hypotension and was started on midodrine at that time. Will restart as blood pressure is currently stable. PLAN: Plan Chronic condition * Hyperlipidemia: Continue statin * Hypothyroidism: Continue with levothyroxine VTE prophylaxis with heparin Disposition: TBD. FRANCISCO JUARES. Charges/Coding Visit Charges Inpatient E&M: 96105 Subs Hosp L2
--- NOTE | 2025-04-23 12:59 | CASEMGMT ---
Addendum entered by Lashawn Ayala 04/23/25 14:21: Discharge Planning [facility] has accepted. SW updated. Lashawn Ayala DC Planning Asst. Original Note: Discharge Planning Referral sent to [facility]ud[facility] Boss. Lashawn Ayala DC Planning Asst.
--- NOTE | 2025-04-23 13:17 | CHAPLAIN ---
Type of Pastoral Visit _x__ Initial Visit ___ Follow-up Visit ___ On-call Visit ___ General Patient Visit ___ Spiritual Assessment ___ Family Conference ___ Bereavement ___ Rapid Response ___ Code Blue ___ Other (describe below) Pastoral Care Referral From _x__ Patient ___ Family ___ Nurse ___ Physician ___ Chair And Couch Maker ___ Planograph Operator ___ Other (describe below) Sacrament/Intervention _x__ Active listening ___ Anointing ___ Pentecostal ___ Bereavement ___ Communion _x__ Ijeoma exploration ___ _x__ Life review _x__ Prayer ___ Reconciliation ___ Sacrament of Sick _x__ Supportive presence ___ Wedding ___ Other (describe below) Pastoral Comments patient expresses gratitude to have a visit from the business intelligence administrator; pt explains her situation and need for some rehab; pt is anxious to know where she will be going for rehab and asks prayer for ability to stay here; pt has family members in the area for support; pt has a strong ijeoma in God but is not currently involved with a ijeoma community; pt asks for prayers for a grandson going to basic training and she speaks freely about the world events and how the end times are near;
--- NOTE | 2025-04-23 14:37 | CASEMGMT ---
Social Work [facility]. Phone call to pt's dgt Kasia and notified. Kasia is agreeable for discharge to [facility]. SW met with pt and informed of Kasia's SNF choice and pt is agreeable to this and to the discharge plan. Physician notified that [facility] has accepted and pt can discharge when medically ready. Plan: [facility], when medically ready ARVIN Villagran
--- NOTE | 2025-04-23 14:44 | TREXTCAR_ITS ---
Diet Diet Order/Speech Therapy: INPATIENT Hospital Diet / Speech Therapy Order(s) 04/20/25 10:36 Diet: Regular - General Food consistency:: Easy to Chew Liquid Consistency:: Regular/Thin Diet Comments: Distant supervision DC O2, CPAP, BIPAP needs Home O2 Discharge instructions: No Problem/Diagnosis (1) Sepsis: Status: Resolved Code(s): A41.9 - Sepsis, unspecified organism Plan: / UTI Follow-up cultures (2) UTI (urinary tract infection): Status: Acute Code(s): N39.0 - Urinary tract infection, site not specified Plan: Urine culture showing Klebsiella aerogenes, sensitive to all, but nitrofurantoin. On cefepime, will discharge with cipro to complete a 7-day course of abx. (3) Encephalopathy acute: Status: Acute Code(s): G93.40 - Encephalopathy, unspecified Plan: Resolved Secondary to sepsis and UTI. Patient did have an MRI of the brain on April 02 that showed absent flow void in the left vertebral artery consistent with obstruction. Cerebellar atrophy. 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 (4) NSTEMI, initial episode of care: Status: Acute Code(s): I21.4 - Non-ST elevation (NSTEMI) myocardial infarction Plan: Troponins in the 170s. Down from 300s earlier this month. Likely demand ischemia from sepsis with known cardiomyopathy. Seen by cardiology earlier this month. Recommendation was medical mgmt at that time and follow up with her F physical science professor in 7-14 days. Echo on April 02 showed EF of 45% with stage II diastolic dysfunction. Mild bilateral atrial dilation. Severe 4+ tricuspid valve insufficiency. Right ventricular systolic pressure of 56 mmHg. Continue ASA, metoprolol tartrate, torsemide. Sacubitril/valsartan was not restarted when she was discharged last admission due to issues with hypotension and was started on midodrine at that time. Will restart as blood pressure is currently stable. Plan Chronic condition * Hyperlipidemia: Continue statin * Hypothyroidism: Continue with levothyroxine VTE prophylaxis with heparin Disposition: TBD. FRANCISCO JUARES. Allergies/Procedures Done in Hospital Allergies tramadol Allergy (Verified 04/20/25 07:17) Other bad dreams tuberculin, purified protein deriva Adverse Reaction (Severe, Verified 04/20/25 07:17) Other Type of Care/Length of Stay Estimated LOS: Convalescent Care Less Than 30 days Type of Care Needed: Skilled Rehab Potential: Fair Prognosis: Fair Additional Orders/Day of Discharge Day of Discharge: 04/23/25 Dietary and Speech Recommendations Dietitian Recommendations/Changes: Continue regular diet. Will monitor weight trends. Speech Linguistic Eval Summary: Per Dr. Silva, pt fit for informal cognitive linguistic assessment. Per nurse Estrella, pt was doing well at breakfast and fit to be see for therapy. Pt oriented to name, , age, current month, current year, current day of week, and current location. When asked to recall details from hospital stay, pt was able to recall events with approximately 50% accuracy. Most of the information pt was able to recall was information provided by daughter (according to pt). While recalling information, pt displayed notable word anomia, having difficulty using correct vocabulary to describe. Pt was given divergent naming task x2, displayed approx. 50% accuracy with notable perseverations. Pt was able to perform basic problem solving task (subtracting 7 from 100) with approximately 20% accuracy. Pt additionally was given delayed memory task (remembering words lemon, merida, ball), and was unable to recall words independently. Pt was very open about struggling with memory, and mentioned she often finds herself frustrated when struggling to remember names of family members, dates, etc. Discharge Plan Admission Admit Date/Time: 04/20/25 09:32 Primary Reason for Your Visit: Urinary tract infection Attending Provider: Justo Silva Primary Care Provider: Jonn Gallagher Consulting Providers: Isaac Dee Discharge Orders/Prescriptions Prescriptions: New Entresto 24-26 mg Tablet 1 tab PO BID Qty: 60 0RF ciprofloxacin HCl 500 mg tablet 500 mg PO Q12H Qty: 10 0RF Continued omeprazole 20 MG capsule 20 mg PO DAILY cetirizine 10 mg Tablet 10 mg PO DAILY levothyroxine 75 mcg Tablet 75 mcg PO MOTUWETH Patient Comments: TAKE 75 MCGS WEDNESDAY TO WEDNESDAY ON AN EMPTY STOMACH AND 50 MCGS WEDNESDAY TO WEDNESDAY FOR FOR THYROID ergocalciferol (vitamin D2) 1,250 mcg (50,000 unit) capsule 50,000 unit PO VILLARREAL levothyroxine 50 mcg tablet 50 mcg PO SUFRSA Patient Comments: TAKE 75 MCGS WEDNESDAY TO WEDNESDAY ON AN EMPTY STOMACH AND 50 MCGS WEDNESDAY TO WEDNESDAY FOR FOR THYROID acetaminophen 500 mg tablet 1,000 mg PO Q6H PRN (Reason: pain) albuterol sulfate [Ventolin HFA] 90 mcg/actuation HFA aerosol inhaler 2 inh inhalation Q6H PRN (Reason: shortness of breath or wheezing) gabapentin 100 mg capsule 100 mg PO DAILY ondansetron 4 mg tablet,disintegrating 4 mg PO Q6H PRN (Reason: nausea and vomiting) exemestane 25 mg tablet 25 mg PO DAILY potassium chloride 10 mEq tablet extended release 10 meq PO DAILY torsemide 20 mg tablet 10 mg PO DAILY midodrine 5 mg Tablet 10 mg PO TIDCM Qty: 90 2RF aspirin 81 mg Tablet,Chewable 81 mg PO BREAKFAST Qty: 30 2RF metoprolol tartrate 25 mg tablet 25 mg PO BID Qty: 60 2RF atorvastatin [Lipitor] 40 mg tablet 40 mg PO DAILY Qty: 30 2RF Referrals / Follow Up: [facility] [Provider Group] - Within 1 Month Julissa Ariza MD [Med Staff - Road Freight Conductor] - Jonn Gallagher MD [Primary Care Provider] - Within 2 Weeks Disposition Disposition (needs filled in before D/C Order can be placed): [facility]
--- NOTE | 2025-04-23 14:48 | PCM.DC.SUM ---
Providers Date of Admission: 04/20/25 Primary Care Physician: Dr. Jonn Gallagher MD Reason For Visit: SEVERE SEPSIS Diagnosis Discharge Diagnosis (1) Sepsis: Status: Resolved Code(s): A41.9 - Sepsis, unspecified organism Plan: 12/03 UTI Follow-up cultures (2) UTI (urinary tract infection): Status: Acute Code(s): N39.0 - Urinary tract infection, site not specified Plan: Urine culture showing Klebsiella aerogenes, sensitive to all, but nitrofurantoin. On cefepime, will discharge with cipro to complete a 7-day course of abx. (3) Encephalopathy acute: Status: Acute Code(s): G93.40 - Encephalopathy, unspecified Plan: Resolved Secondary to sepsis and UTI. Patient did have an MRI of the brain on April 02 that showed absent flow void in the left vertebral artery consistent with obstruction. Cerebellar atrophy. 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 (4) NSTEMI, initial episode of care: Status: Acute Code(s): I21.4 - Non-ST elevation (NSTEMI) myocardial infarction Plan: Troponins in the 170s. Down from 300s earlier this month. Likely demand ischemia from sepsis with known cardiomyopathy. Seen by cardiology earlier this month. Recommendation was medical mgmt at that time and follow up with her [facility] catheter finisher and inspector in 7-14 days. Echo on April 02 showed EF of 45% with stage II diastolic dysfunction. Mild bilateral atrial dilation. Severe 4+ tricuspid valve insufficiency. Right ventricular systolic pressure of 56 mmHg. Continue ASA, metoprolol tartrate, torsemide. Sacubitril/valsartan was not restarted when she was discharged last admission due to issues with hypotension and was started on midodrine at that time. Will restart as blood pressure is currently stable. Plan Chronic condition Hyperlipidemia: Continue statin Hypothyroidism: Continue with levothyroxine VTE prophylaxis with heparin Disposition: [facility] FRANCISCO JUARES. Medications at Discharge Home Medications omeprazole 20 mg capsule,delayed release 20 mg PO DAILY HEARTBURN 01/19/14 cetirizine 10 mg tablet 10 mg PO DAILY ALLERGIES 04/14/21 ergocalciferol (vitamin D2) 1,250 mcg (50,000 unit) capsule 50,000 unit PO VILLARREAL SUPPLEMENT 04/14/21 levothyroxine 75 mcg tablet 75 mcg PO MOTUWETH THYROID 04/14/21 levothyroxine 50 mcg tablet 50 mcg PO SUFRSA THYROID 11/01/22 acetaminophen 500 mg tablet 1,000 mg PO Q6H PRN pain 04/01/25 albuterol sulfate 90 mcg/actuation aerosol inhaler (Ventolin HFA) 2 inh inhalation Q6H PRN shortness of breath or wheezing 04/01/25 exemestane 25 mg tablet 25 mg PO DAILY HORMONE 04/01/25 gabapentin 100 mg capsule 100 mg PO DAILY NERVE PAIN 04/01/25 ondansetron 4 mg disintegrating tablet 4 mg PO Q6H PRN nausea and vomiting 04/01/25 potassium chloride 10 mEq tablet,extended release 10 meq PO DAILY SUPPLEMENT 04/01/25 torsemide 20 mg tablet 10 mg PO DAILY WATER PILL 04/01/25 aspirin 81 mg chewable tablet 81 mg PO BREAKFAST #30 tabs 04/05/25 atorvastatin 40 mg tablet (Lipitor) 40 mg PO DAILY #30 tabs 04/05/25 metoprolol tartrate 25 mg tablet 25 mg PO BID #60 tabs 04/05/25 midodrine 5 mg tablet 10 mg (2 x 5 mg) PO TIDCM #90 tabs 04/05/25 ciprofloxacin HCl 500 mg tablet 500 mg PO Q12H #10 tabs 04/22/25 sacubitril 24 mg-valsartan 26 mg tablet (Entresto) 1 tab PO BID #60 tabs 04/22/25 Hospital Course Operations None Procedures None Summary of Care Provided Minutes Spent on Discharge: 32 Hospital Course: This is an 85-year-old female presents with lethargy. She was diagnosed with a UTI which was initially treated with cefepime but eventually grew out Klebsiella which was pansensitive with the exception of intermediate sensitivity to nitrofurantoin. Patient be discharged with ciprofloxacin complete a 7-day course of antibiotics. She was septic upon arrival but did not receive 30 cc/kg of IV fluid given history of heart failure and concern for worsening respiratory status. Patient was confused but that that has since improved and patient is at her baseline. We did offer the patient to evaluate for intermediate facility placement but she has declined preferring to go to home with home care. Discussed with the patient's daughter had concerns about the patient going home. So the patient was kept here and evaluated for intermediate facility placement. Patient was accepted at [facility] and would be discharged today. Weight / BMI Weight Weight: 78.4 kg Body Mass Index (BMI) 30.6 ABG / Lab / Microbiology Data 04/23/25 05:16 04/23/25 05:16 Laboratory: Laboratory Results - last 24 hr 04/23/25 05:16: WBC 10.4, RBC 3.77 L, Hgb 11.4 L, Hct 34.8 L, MCV 92.3, MCH 30.2, MCHC 32.8, RDW Std Deviation 46.5 H, RDW Coeff of Tiffany 13.7, Plt Count 255, MPV 11.2, Immature Gran % (Auto) 0.200, Neut % (Auto) 56.9, Lymph % (Auto) 31.0, [place] % (Auto) 6.4, Eos % (Auto) 4.5, Baso % (Auto) 1.0, Absolute Neuts (auto) 5.9, Absolute Lymphs (auto) 3.23, Nucleated RBC % 0, Sodium 140, Potassium 3.1 L, Chloride 106, Carbon Dioxide 23.1, Anion Gap 11, BUN 14, Creatinine 1.07, Estim Creat Clear Calc 38.80 L, Est GFR (MDRD) Non-Af 51 L, BUN/Creatinine Ratio 13.2, Glucose 95, Calcium 8.6 Microbiology: Microbiology 04/20/25 07:25 Urine Catheter - Catheter Urine Culture - Final Klebsiella aerogenes D/C Instructions Discharge Diet: No restrictions DC O2, CPAP, BIPAP Needs Home O2 Discharge instructions: No Meaningful Use Info Meaningful Use Meaningful Use Diagnoses (Choose all that apply): None applicable Ischemic Stroke Statin Dosing Therapy Reference: STATIN DOSE THERAPY REFERENCE: * Patients > 75 years receive moderate or high dose statin therapy. * Patients 75 years or YOUNGER should receive HIGH intensity statin dose unless contraindicated. You will be required to document reason for non-treatment if statin daily dose does not meet guidelines. HIGH DOSE STATIN THERAPY DAILY Atorvastatin > than or = to 40 mg Rosuvastatin > than or = to 20 mg Amlodipine + Atorvastatin > than or = to 2.5/40 mg Ezetimibe + Simvastatin 10/80 mg Simvastatin 80mg Discharge Plan Admission Admit Date/Time: 04/20/25 09:32 Primary Reason for Your Visit: Urinary tract infection Attending Provider: Justo Silva Primary Care Provider: Jonn Gallagher Consulting Providers: Isaac Dee Discharge Orders/Prescriptions Prescriptions: New Entresto 24-26 mg Tablet 1 tab PO BID Qty: 60 0RF ciprofloxacin HCl 500 mg tablet 500 mg PO Q12H Qty: 10 0RF Continued omeprazole 20 MG capsule 20 mg PO DAILY cetirizine 10 mg Tablet 10 mg PO DAILY levothyroxine 75 mcg Tablet 75 mcg PO MOTUWETH Patient Comments: TAKE 75 MCGS WEDNESDAY TO WEDNESDAY ON AN EMPTY STOMACH AND 50 MCGS WEDNESDAY TO WEDNESDAY FOR FOR THYROID ergocalciferol (vitamin D2) 1,250 mcg (50,000 unit) capsule 50,000 unit PO VILLARREAL levothyroxine 50 mcg tablet 50 mcg PO SUFRSA Patient Comments: TAKE 75 MCGS WEDNESDAY TO WEDNESDAY ON AN EMPTY STOMACH AND 50 MCGS WEDNESDAY TO WEDNESDAY FOR FOR THYROID acetaminophen 500 mg tablet 1,000 mg PO Q6H PRN (Reason: pain) albuterol sulfate [Ventolin HFA] 90 mcg/actuation HFA aerosol inhaler 2 inh inhalation Q6H PRN (Reason: shortness of breath or wheezing) gabapentin 100 mg capsule 100 mg PO DAILY ondansetron 4 mg tablet,disintegrating 4 mg PO Q6H PRN (Reason: nausea and vomiting) exemestane 25 mg tablet 25 mg PO DAILY potassium chloride 10 mEq tablet extended release 10 meq PO DAILY torsemide 20 mg tablet 10 mg PO DAILY midodrine 5 mg Tablet 10 mg PO TIDCM Qty: 90 2RF aspirin 81 mg Tablet,Chewable 81 mg PO BREAKFAST Qty: 30 2RF metoprolol tartrate 25 mg tablet 25 mg PO BID Qty: 60 2RF atorvastatin [Lipitor] 40 mg tablet 40 mg PO DAILY Qty: 30 2RF Referrals / Follow Up: [facility] [Provider Group] - Within 1 Month Julissa Ariza MD [Med Staff - Hobbies [employer] Crafts Sales Representative] - Jonn Gallagher MD [Primary Care Provider] - Within 2 Weeks Disposition Disposition (needs filled in before D/C Order can be placed): [facility] Facility Charges/Coding Visit Charges Inpatient E&M: 96747 Disch Hosp >30min
--- NOTE | 2025-04-23 14:53 | PHA.DC.MR.R ---
Pharmacy [place] Med Reconciliation Pharmacy Service has performed discharge medication reconciliation for this patient. The patient's discharge medication list was reviewed for discrepancies and discrepancies were resolved. Medications at Discharge Home Medications omeprazole 20 mg capsule,delayed release 20 mg PO DAILY HEARTBURN 01/19/14 cetirizine 10 mg tablet 10 mg PO DAILY ALLERGIES 04/14/21 ergocalciferol (vitamin D2) 1,250 mcg (50,000 unit) capsule 50,000 unit PO VILLARREAL SUPPLEMENT 04/14/21 levothyroxine 75 mcg tablet 75 mcg PO MOTUWETH THYROID 04/14/21 levothyroxine 50 mcg tablet 50 mcg PO SUFRSA THYROID 11/01/22 acetaminophen 500 mg tablet 1,000 mg PO Q6H PRN pain 04/01/25 albuterol sulfate 90 mcg/actuation aerosol inhaler (Ventolin HFA) 2 inh inhalation Q6H PRN shortness of breath or wheezing 04/01/25 exemestane 25 mg tablet 25 mg PO DAILY HORMONE 04/01/25 gabapentin 100 mg capsule 100 mg PO DAILY NERVE PAIN 04/01/25 ondansetron 4 mg disintegrating tablet 4 mg PO Q6H PRN nausea and vomiting 04/01/25 potassium chloride 10 mEq tablet,extended release 10 meq PO DAILY SUPPLEMENT 04/01/25 torsemide 20 mg tablet 10 mg PO DAILY WATER PILL 04/01/25 aspirin 81 mg chewable tablet 81 mg PO BREAKFAST #30 tabs 04/05/25 atorvastatin 40 mg tablet (Lipitor) 40 mg PO DAILY #30 tabs 04/05/25 metoprolol tartrate 25 mg tablet 25 mg PO BID #60 tabs 04/05/25 midodrine 5 mg tablet 10 mg (2 x 5 mg) PO TIDCM #90 tabs 04/05/25 ciprofloxacin HCl 500 mg tablet 500 mg PO Q12H #10 tabs 04/22/25 sacubitril 24 mg-valsartan 26 mg tablet (Entresto) 1 tab PO BID #60 tabs 04/22/25
[2025-04-23 15:00] VITALS: BP 126/73; PULSE 74; RESP 16; TEMP 37; O2SAT 97
--- NOTE | 2025-04-23 15:23 | CASEMGMT ---
Social Work Per physician, pt is ready for discharge. 7000 exemption form completed in HENS. SW called pt dgt Kasia and notified of discharge today and that sampler pickup is at 5pm. SW met with pt and informed of discharge plan and she is agreeable. Nursing made aware of pickup time. Disposition: [facility], skilled level of care ARVIN Villagran
--- NOTE | 2025-04-23 15:39 | CASEMGMT ---
Discharge Planning Discharge orders, signed med list, and transport time sent to [facility]. Physicians will transport pt by wheelchair at 5p. Nursing and SW updated. SW to update pts daughter. Lashawn Ayala DC Planning Asst.
--- NOTE | 2025-04-23 15:48 | CASEMGMT ---
Social Work Pt has services through [facility] and Licha Schwartz is CM. left with Licha notifying of discharge plan and discharge summary faxed. SW notified [facility] that pt will not be returning home. ARVIN Villagran
== END 2025-04-23 17:20 | disposition skilled nursing facility (03) | DRG 871 ==
LOC: ED 09:35 → PCU 10:10
PROVIDERS: Internal Medicine; Admitting Provider Internal Medicine; Emergency Provider Emergency Medicine; PCP Internal Medicine
DX: A41.9 Sepsis, unspecified organism (principal); I21.4 Non-ST elevation (NSTEMI) myocardial infarction; E87.20 Acidosis, unspecified; I24.89 Other forms of acute ischemic heart disease; G93.40 Encephalopathy, unspecified; J84.9 Interstitial pulmonary disease, unspecified; I42.9 Cardiomyopathy, unspecified; N39.0 Urinary tract infection, site not specified; I27.20 Pulmonary hypertension, unspecified; G31.9 Degenerative disease of nervous system, unspecified; E03.9 Hypothyroidism, unspecified; I07.1 Rheumatic tricuspid insufficiency; I10 Essential (primary) hypertension; K21.9 Gastro-esophageal reflux disease without esophagitis; E78.5 Hyperlipidemia, unspecified; G31.84 Mild cognitive impairment of uncertain or unknown etiology; B96.1 Klebsiella pneumoniae [K. pneumoniae] as the cause of diseases classified elsewhere; Z79.890 Hormone replacement therapy; I49.3 Ventricular premature depolarization; Z79.82 Long term (current) use of aspirin; Z86.73 Personal history of transient ischemic attack (TIA), and cerebral infarction without residual deficits; Z85.3 Personal history of malignant neoplasm of breast
CPT/HCPCS: 36415; 36600; 71045; 80048; 80053; 81001; 82803; 83605; 83880; 84484; 85025; 87040; 87077; 87086; 87088; 87186; 92523; 92526; 92610; 93005; 97116; 97162; 97166; 97530; 97535; 97802; 99285; P9612; A4216

== ENCOUNTER → 2025-07-31 | Outpatient (REF) | payer MEDICARE, MEDICAID, SELFPAY ==
[2025-07-31 09:51] LABS: Anion Gap 12 (5-15); BUN 39 mg/dL (4-19); BUN/Creat Ratio 23.2 RATIO (10-20); Calcium,Total 8.4 mg/dL (7.6-11.0); Carbon Dioxide 24.1 mmol/L (21.0-32.0); Chloride 96 mmol/L (98-108); Cholesterol 114 mg/dL (<=200); Glucose 71 mg/dL (70-99); Low Density Lipoprotein Calc. 59 mg/dL; Potassium 4.8 mmol/L (3.3-5.1); T4 Total, Thyroxin 5.0 ug/dL (4.8-13.9); Triglycerides 144 mg/dL; Very Low Density Lipoprotein 29 mg/dL (5-40); Vitamin B12 584 pg/mL (180-914); cholesterol:hdl ratio screen 4.38
== END ==
LOC: OLS.SW 05:00
PROVIDERS: PCP Internal Medicine; Visit Provider Family Medicine
DX: N18.30 Chronic kidney disease, stage 3 unspecified (principal); I50.9 Heart failure, unspecified; G93.41 Metabolic encephalopathy
CPT/HCPCS: 36415; 80048; 80061; 82607; 83036; 84436; 84443

== ENCOUNTER → 2025-08-07 | Outpatient (REF) | payer MEDICARE, MEDICAID, SELFPAY ==
[2025-08-07 10:09] LABS: Cholesterol 122 mg/dL (<=200); Low Density Lipoprotein Calc. 61 mg/dL; Triglycerides 147 mg/dL; Very Low Density Lipoprotein 29 mg/dL (5-40); cholesterol:hdl ratio screen 3.91
== END ==
LOC: OLS.SW 05:00
PROVIDERS: PCP Internal Medicine; Visit Provider Family Medicine
DX: G93.41 Metabolic encephalopathy (principal); Z79.899 Other long term (current) drug therapy
CPT/HCPCS: 36415; 80061

== ENCOUNTER 2025-08-10 13:17 | Emergency (ER) | payer MEDICARE, MEDICAID, SELFPAY ==
[2025-08-10] VITALS (14 sets, daily range): BP systolic 62–115; BP diastolic 37–91; PULSE 65–89; RESP 13–20; TEMP 36.4–36.9; O2SAT 92–100; BMI 25.1
--- NOTE | 2025-08-10 13:50 | RAD_ITS ---
PROCEDURE: CHEST 1 VIEW (PORTABLE) 08/10/2025 REASON FOR EXAM: TRAUMA TECHNIQUE: Frontal view of the chest. COMPARISON: Reviewed FINDINGS: Stable multifocal patchy airspace opacities bilaterally particularly of the left lower lobe. Heart size stable. No pneumothorax. Osseous structures grossly intact. RAD/Chest 1 View (Portable) IMPRESSION: Stable abnormal imaging findings compared to priors. [facility]
--- NOTE | 2025-08-10 13:51 | ED.RN ---
this rn notifed Dr. Merino of blood pressure of 62/41- no orders at this time.
[2025-08-10] MEDS: 0.9% Normal Saline (1000mL) 1,000 ML 999 ML IV (14:02)
[2025-08-10 14:08] LABS: Hematocrit 41.5 % (37-47); Hemoglobin 13.1 g/dL (12.0-15.0); Immature Granulocytes Count 0.230 X10^3/uL (0.0-0.0); Mean Corp Hgb Conc 31.6 g/dL (32-36); Mean Corpuscular Volume 96.3 fL (81-99); Mean Platelet Vol. 11.5 fl (6.2-12.0); NRBC Flagged by Analyzer 0 % (0-5); POSITIVE DIFFERENTIAL YES; Platelet Count 369 K/mm3 (150-450); RBC Distribution Width CV 15.4 % (11.6-14.6); RBC Distribution Width SD 54.7 fl (35.1-43.9); Red Blood Count 4.31 M/mm3 (4.2-5.4); White Blood Count 24.9 K/mm3 (4.4-11.0)
--- NOTE | 2025-08-10 14:15 | EDS_ITS ---
HPI History of Present Illness Chief Complaint: Fall Informant: patient and family Onset/Context/Timing Onset: Today Timing: Continuous Quality: Aching Location: Neck and head Worsened by: Nothing Relieved by: Tylenol Narrative Narrative: Patient presents with fall x 2 this week. Patient fell out of bed today. Patient states she was trying to stand up from the bed when she slipped off the edge of the bed. Daughter states patient has been confused over the past few days. Daughter states she does not remember the first fall. Patient complains of pain in her right arm that improved with Tylenol. Patient denies any fevers or chills. Patient admits to occasional pain in her substernal area. Patient also admits to some upper abdominal pain. Patient does not think she hit her head. Patient does admit to some pain in her neck and back. Patient is currently being treated for urinary tract infection and pneumonia. [facility] Medical History LV dysfunction History of breast cancer Acute hypotension Hypertension Anxiety Hypothyroidism GERD (gastroesophageal reflux disease) Interstitial lung disease Hypertension Breast cancer metastasized to bone Home Medications ?Medication ?Instructions ?Recorded ?Last Taken ?Type omeprazole 20 mg capsule,delayed 20 mg PO DAILY HEARTB URN 01/19/14 Unknown History release cetirizine 10 mg tablet 10 mg PO DAILY ALLERGIES Unknown History ergocalciferol (vitamin D2) 1,250 50,000 unit PO .tue SUPPLEMENT 04/14/21 03/25/25 History mcg (50,000 unit) capsule levothyroxine 50 mcg tablet 75 mcg PO DAILY THYROID Unknown History acetaminophen 500 mg tablet 1,000 mg PO Q6H PRN pain 0 04/01/25 Unknown History albuterol sulfate 90 mcg/actuation 2 inh inhalation Q6 H PRN shortness 04/01/25 Unknown History aerosol inhaler (Ventolin HFA) of breath or wheezing exemestane 25 mg tablet 25 mg PO DAILY HORMONE 04/01 Unknown History gabapentin 100 mg capsule 100 mg PO Q12H NERVE PAIN Unknown History ondansetron 4 mg disintegrating 4 mg PO Q6H PRN nausea and vomiting 04/01/25 Unknown History tablet potassium chloride 10 mEq 20 meq PO DAILY SUPPLEMENT 0 04/01/25 Unknown History tablet,extended release torsemide 20 mg tablet 20 mg PO DAILY WATER PILL Unknown History aspirin 81 mg chewable tablet 81 mg PO BREAKFAST heart health 04/05/25 Unknown Rx #30 tabs atorvastatin 40 mg tablet (Lipitor) 40 mg PO DAILY cho lesterol #30 tabs 04/05/25 Unknown Rx metoprolol tartrate 25 mg tablet 25 mg PO BID blood pr essure #60 04/05/25 Unknown Rx tabs midodrine 5 mg tablet 10 mg (2 x 5 mg) PO TIDCM bl ood 04/05/25 Unknown Rx pressure #90 tabs ciprofloxacin HCl 500 mg tablet 500 mg PO Q12H #10 tab s 04/22/25 Unknown Rx sacubitril 24 mg-valsartan 26 mg 1 tab PO BID #60 tabs 04/22/25 Unknown Rx tablet (Entresto) ascorbic acid (vitamin C) 500 mg 500 mg PO DAILY 08/10 Unknown History tablet (C-500) azithromycin 500 mg tablet 500 mg PO DAILY 08/10/25 Un known History cefdinir 300 mg capsule 300 mg PO BID 08/10/25 Unkno wn History ceftriaxone 1 gram solution for 1 g IM DAILY 08/10/25 Unknown History injection loratadine 10 mg tablet 10 mg PO DAILY 08/10/25 Unkn own History (Allerclear) magnesium 200 mg tablet 400 mg PO DAILY 08/10/25 Unk nown History melatonin 5 mg capsule 5 mg PO 08/10/25 Unknown His tory multivitamin (Daily Multi-Vitamin 1 tab PO DAILY 08/10 Unknown History tablet) pantoprazole 20 mg tablet,delayed 20 mg PO DAILY 08/10 Unknown History release sacubitril 24 mg-valsartan 26 mg 1 tab PO BID 08/10/25 Unknown History tablet (Entresto) venlafaxine 150 mg 150 mg PO DAILY 08/10/25 Unk nown History capsule,extended release 24 hr Allergy/AdvReac Type Severity Reaction Status Date / Time tramadol Allergy Other Verified 08/10/25 17:09 tuberculin, purified protein AdvReac Severe Other Verified 08/10/25 17:09 deriva Surgical History History of appendectomy H/O right mastectomy Social History household members: none Smoking Status: Never smoker substance use type: does not use ROS ROS ED Constitutional Constitutional ED: Denies chills or fever(s) Eyes Eyes: Reports diplopia; Denies blurry vision ENT ENT ED: Denies rhinorrhea or sore throat Cardiovascular Cardiovascular: Reports chest pain; Denies palpitations Respiratory/Chest Respiratory/Chest: Denies cough or dyspnea Gastrointestinal Gastrointestinal: Reports abdominal pain; Denies nausea or vomiting Genitourinary Genitourinary ED: Denies dysuria or hematuria Musculoskeletal Musculoskeletal: Reports back pain and neck pain Integumentary Denies abscess or rash Neurologic Neurologic: Denies headache(s) or weakness Allergic/Immunologic Allergic/Immunologic ED: Denies mouth swelling or urticaria EXAM Physical Exam Const Vital Signs: 08/10/25 13:19 08/10/25 13:28 08/10/25 13:28 Temperature 97.6 F L Temperature Source Oral Pulse Rate 89 Respiratory Rate Respiratory Effort Normal Respiratory Pattern Normal Blood Pressure 85/68 L Blood Pressure Mean 73 Pulse Ox
--- NOTE | 2025-08-10 14:15 | EX.ED.DYSGE1 ---
HPI History of Present Illness Chief Complaint: Fall Informant: patient and family Onset/Context/Timing Onset: Today Timing: Continuous Quality: Aching Location: Neck and head Worsened by: Nothing Relieved by: Tylenol Narrative Narrative: Patient presents with fall x 2 this week. Patient fell out of bed today. Patient states she was trying to stand up from the bed when she slipped off the edge of the bed. Daughter states patient has been confused over the past few days. Daughter states she does not remember the first fall. Patient complains of pain in her right arm that improved with Tylenol. Patient denies any fevers or chills. Patient admits to occasional pain in her substernal area. Patient also admits to some upper abdominal pain. Patient does not think she hit her head. Patient does admit to some pain in her neck and back. Patient is currently being treated for urinary tract infection and pneumonia. [facility] Medical History LV dysfunction History of breast cancer Acute hypotension Hypertension Anxiety Hypothyroidism GERD (gastroesophageal reflux disease) Interstitial lung disease Hypertension Breast cancer metastasized to bone Home Medications ?Medication ?Instructions ?Recorded ?Last Taken ?Type omeprazole 20 mg capsule,delayed 20 mg PO DAILY HEARTBURN 01/19/14 Unknown History release cetirizine 10 mg tablet 10 mg PO DAILY ALLERGIES 04/14/21 Unknown History ergocalciferol (vitamin D2) 1,250 50,000 unit PO .tue SUPPLEMENT 04/14/21 03/25/25 History mcg (50,000 unit) capsule levothyroxine 50 mcg tablet 75 mcg PO DAILY THYROID 11/01/22 Unknown History acetaminophen 500 mg tablet 1,000 mg PO Q6H PRN pain 04/01/25 Unknown History albuterol sulfate 90 mcg/actuation 2 inh inhalation Q6H PRN shortness 04/01/25 Unknown History aerosol inhaler (Ventolin HFA) of breath or wheezing exemestane 25 mg tablet 25 mg PO DAILY HORMONE 04/01/25 Unknown History gabapentin 100 mg capsule 100 mg PO Q12H NERVE PAIN 04/01/25 Unknown History ondansetron 4 mg disintegrating 4 mg PO Q6H PRN nausea and vomiting 04/01/25 Unknown History tablet potassium chloride 10 mEq 20 meq PO DAILY SUPPLEMENT 04/01/25 Unknown History tablet,extended release torsemide 20 mg tablet 20 mg PO DAILY WATER PILL 04/01/25 Unknown History aspirin 81 mg chewable tablet 81 mg PO BREAKFAST heart health 04/05/25 Unknown Rx #30 tabs atorvastatin 40 mg tablet (Lipitor) 40 mg PO DAILY cholesterol #30 tabs 04/05/25 Unknown Rx metoprolol tartrate 25 mg tablet 25 mg PO BID blood pressure #60 04/05/25 Unknown Rx tabs midodrine 5 mg tablet 10 mg (2 x 5 mg) PO TIDCM blood 04/05/25 Unknown Rx pressure #90 tabs ciprofloxacin HCl 500 mg tablet 500 mg PO Q12H #10 tabs 04/22/25 Unknown Rx sacubitril 24 mg-valsartan 26 mg 1 tab PO BID #60 tabs 04/22/25 Unknown Rx tablet (Entresto) ascorbic acid (vitamin C) 500 mg 500 mg PO DAILY 08/10/25 Unknown History tablet (C-500) azithromycin 500 mg tablet 500 mg PO DAILY 08/10/25 Unknown History cefdinir 300 mg capsule 300 mg PO BID 08/10/25 Unknown History ceftriaxone 1 gram solution for 1 g IM DAILY 08/10/25 Unknown History injection loratadine 10 mg tablet 10 mg PO DAILY 08/10/25 Unknown History (Allerclear) magnesium 200 mg tablet 400 mg PO DAILY 08/10/25 Unknown History melatonin 5 mg capsule 5 mg PO 08/10/25 Unknown History multivitamin (Daily Multi-Vitamin 1 tab PO DAILY 08/10/25 Unknown History tablet) pantoprazole 20 mg tablet,delayed 20 mg PO DAILY 08/10/25 Unknown History release sacubitril 24 mg-valsartan 26 mg 1 tab PO BID 08/10/25 Unknown History tablet (Entresto) venlafaxine 150 mg 150 mg PO DAILY 08/10/25 Unknown History capsule,extended release 24 hr Allergy/AdvReac Type Severity Reaction Status Date / Time tramadol Allergy Other Verified 08/10/25 17:09 tuberculin, purified protein AdvReac Severe Other Verified 08/10/25 17:09 deriva Surgical History History of appendectomy H/O right mastectomy Social History household members: none Smoking Status: Never smoker substance use type: does not use ROS ROS ED Constitutional Constitutional ED: Denies chills or fever(s) Eyes Eyes: Reports diplopia; Denies blurry vision ENT ENT ED: Denies rhinorrhea or sore throat Cardiovascular Cardiovascular: Reports chest pain; Denies palpitations Respiratory/Chest Respiratory/Chest: Denies cough or dyspnea Gastrointestinal Gastrointestinal: Reports abdominal pain; Denies nausea or vomiting Genitourinary Genitourinary ED: Denies dysuria or hematuria Musculoskeletal Musculoskeletal: Reports back pain and neck pain Integumentary Denies abscess or rash Neurologic Neurologic: Denies headache(s) or weakness Allergic/Immunologic Allergic/Immunologic ED: Denies mouth swelling or urticaria EXAM Physical Exam Const Vital Signs: 08/10/25 13:19 08/10/25 13:28 08/10/25 13:28 Temperature 97.6 F L Temperature Source Oral Pulse Rate 89 Respiratory Rate Respiratory Effort Normal Respiratory Pattern Normal Blood Pressure 85/68 L Blood Pressure Mean 73 Pulse Ox Oxygen Delivery Method Nasal Cannula Oxygen Flow Rate (L/min) 3 08/10/25 13:49 08/10/25 14:37 08/10/25 15:00 Temperature Temperature Source Pulse Rate 85 70 Respiratory Rate 14 18 14 Respiratory Effort Respiratory Pattern Blood Pressure 62/41 L 104/91 H 114/71 Blood Pressure Mean 48 95 85 Pulse Ox 98 95 95 Oxygen Delivery Method Oxygen Flow Rate (L/min) 08/10/25 16:00 08/10/25 17:00 08/10/25 18:13 Temperature Temperature Source Pulse Rate 84 75 65 Respiratory Rate 14 20 H Respiratory Effort Respiratory Pattern Blood Pressure 76/63 L 65/51 L 77/50 L Blood Pressure Mean 67 55 59 Pulse Ox 92 Oxygen Delivery Method Room Air Oxygen Flow Rate (L/min) 08/10/25 19:27 08/10/25 20:00 08/10/25 20:39 Temperature 98.4 F Temperature Source Pulse Rate 71 73 76 Respiratory Rate 14 13 14 Respiratory Effort Respiratory Pattern Blood Pressure 86/37 L 87/41 L 81/45 L Blood Pressure Mean 53 56 57 Pulse Ox 100 100 95 Oxygen Delivery Method Room Air Room Air Oxygen Flow Rate (L/min) 08/10/25 20:45 08/10/25 21:00 08/10/25 22:00 Temperature Temperature Source Pulse Rate 77 74 Respiratory Rate 14 14 Respiratory Effort Respiratory Pattern Blood Pressure 93/45 L 102/45 L 98/41 L Blood Pressure Mean 61 64 60 Pulse Ox 93 98 Oxygen Delivery Method Room Air Room Air Oxygen Flow Rate (L/min) 08/10/25 22:48 Temperature Temperature Source Pulse Rate 76 Respiratory Rate 17 Respiratory Effort Respiratory Pattern Blood Pressure 115/50 L Blood Pressure Mean 71 Pulse Ox 98 Oxygen Delivery Method Room Air Oxygen Flow Rate (L/min) Positive well nourished and well developed General Appearance ED: well developed and NAD HEENT Reports dry mucous membranes HEENT Narrative: There are aphthous ulcers noted on the buccal mucosa on the left. There is no bleeding noted. There is no discharge or drainage noted. Oropharynx is clear. Airway is patent. Mouth ED: Yes dry mucous membranes Mouth: dry mucous membranes Neck supple and no JVD Resp normal respiratory effort Auscultation: diminished lung sounds diffuse Cardio regular rate and regular rhythm GI non-distended Palpation: soft and tender epigastric, LUQ and RUQ; Negative for guarding or rebound tenderness present Neuro oriented x3, CN's II-XII intact bilaterally and no sensory deficits noted Sensorium / Orientation: alert Motor Exam: strength 5/5 throughout Psych mental status grossly normal MDM MDM MDM Narrative Medical decision making narrative: Differential diagnosis includes pneumonia, sepsis, urinary tract infection, dehydration, electrolyte abnormality, cardiac dysrhythmia, cardiac ischemia, pancreatitis, bowel obstruction, perforation, intracranial bleeding, cervical spine fracture, and general weakness. EKG will be obtained to assess for cardiac dysrhythmia and cardiac ischemia. CT scan of the brain will be obtained to assess for intracranial bleeding and closed head injury. CT scan of the cervical spine will be obtained to assess for cervical fracture and spondylolisthesis. CT scan of the abdomen pelvis will be obtained to assess for bowel obstruction, perforation, pancreatitis, and colitis. Chest x-ray will be obtained to assess for pneumonia and bronchitis. CBC will be obtained to assess for leukocytosis and anemia. Basic metabolic profile will be obtained to assess for electrolyte abnormality and renal function. Hepatic profile will be obtained to assess for hepatic function. Lipase will be obtained to assess for pancreatitis. Serum lactate will be obtained to assess for sepsis. PT with INR and PTT will be obtained to assess for coagulopathy. Total CPK will be obtained to assess for rhabdomyolysis. Urinalysis will be obtained to assess for urinary tract infection and hematuria. Blood cultures will be obtained to assess for sepsis. Urine culture will be obtained to assess for urinary tract infection and hematuria. Type and screen will be obtained to assess for anemia. Lab Data Attestation: I reviewed the patient's lab results. Lab results narrative: CBC was reviewed. There is a leukocytosis of 24.9. Hemoglobin was stable at 13.1 and hematocrit was 41.5. Platelets were normal at 369. PT with INR and PTT were reviewed. Pro time was 16.9 and INR was 1.3. PTT was normal at 28.4. Comprehensive metabolic profile was reviewed. BUN was elevated at 76 and creatinine was elevated at 2.36. These are increased from previous results. Potassium was elevated at 6.4. The remainder was essentially within normal limits. Lipase was reviewed and was normal at 22. Serum lactate was reviewed and was normal at 1.7. Urinalysis was reviewed. Leukocyte esterase was 500 with greater than 100 white blood cells. Labs: Laboratory Results - last 24 hr 08/10/25 08/10/25 08/10/25 13:45 14:26 15:05 WBC 24.9 H RBC 4.31 Hgb 13.1 Hct 41.5 MCV 96.3 MCH 30.4 MCHC 31.6 L RDW Std Deviation 54.7 H RDW Coeff of Tiffany 15.4 H Plt Count 369 MPV 11.5 Immature Gran % (Auto) 0.900 Neut % (Auto) 87.9 H Lymph % (Auto) 8.2 L [place] % (Auto) 2.2 Eos % (Auto) 0.3 Baso % (Auto) 0.5 Absolute Neuts (auto) 21.9 H Absolute Lymphs (auto) 2.04 Nucleated RBC % 0 Differential Comment SCANNED Platelet Estimate ADEQUATE PT 16.9 H INR 1.3 APTT 28.4 Sodium 131 L Potassium 6.4 H* Chloride 94 L Carbon Dioxide 23.8 Anion Gap 13 BUN 76 H Creatinine 2.36 H Estim Creat Clear Calc 16.02 L Est GFR (MDRD) Non-Af 20 L BUN/Creatinine Ratio 32.2 H Glucose 109 H Lactic Acid Calcium 9.1 Total Bilirubin 0.25 Direct Bilirubin 0.14 AST 31 ALT 19 Alkaline Phosphatase 108 H Total Creatine Kinase 96 Total Protein 7.2 Albumin 2.8 L Globulin 4.4 H Lipase 22 Urine Color Yellow Urine Clarity Turbid Urine pH 6.0 Ur Specific [place] 1.020 Urine Protein 100 H Urine Glucose (UA) Normal Urine Ketones Negative Urine Occult Blood 150 H Urine Nitrite Negative Urine Bilirubin Negative Urine Urobilinogen Normal Ur Leukocyte Esterase 500 H Urine RBC 0 SEEN Urine WBC >100 SEEN Ur Squamous Epith Cells 0 SEEN Urine Bacteria 0 SEEN Urine Mucus 0 SEEN POC Glucose Blood Type A POSITIVE Antibody Screen NEGATIVE 08/10/25 08/10/25 15:20 17:47 WBC RBC Hgb Hct MCV MCH MCHC RDW Std Deviation RDW Coeff of Tiffany Plt Count MPV Immature Gran % (Auto) Neut % (Auto) Lymph % (Auto) [place] % (Auto) Eos % (Auto) Baso % (Auto) Absolute Neuts (auto) Absolute Lymphs (auto) Nucleated RBC % Differential Comment Platelet Estimate PT INR APTT Sodium Potassium Chloride Carbon Dioxide Anion Gap BUN Creatinine Estim Creat Clear Calc Est GFR (MDRD) Non-Af BUN/Creatinine Ratio Glucose Lactic Acid 1.7 Calcium Total Bilirubin Direct Bilirubin AST ALT Alkaline Phosphatase Total Creatine Kinase Total Protein Albumin Globulin Lipase Urine Color Urine Clarity Urine pH Ur Specific [place] Urine Protein Urine Glucose (UA) Urine Ketones Urine Occult Blood Urine Nitrite Urine Bilirubin Urine Urobilinogen Ur Leukocyte Esterase Urine RBC Urine WBC Ur Squamous Epith Cells Urine Bacteria Urine Mucus POC Glucose 146 H Blood Type Antibody Screen ABG Data ABG results: ABG 08/10/25 14:16 Specimen Type GERALDINE Sample Site Not entered VBG pH 7.48 H VBG pO2 65 H VBG HCO3 25 VBG Total CO2 26 VBG O2 Sat (Calc) 94 H VBG Base Excess 1 POC Mix VBG pCO2 Pt Tmp 33.7 L O2 Delivery Device Not entered Radiography Diagnostic Testing: Clinical Impression(s) from Imaging Studies Chest X-Ray 08/10/25 13:50 IMPRESSION: Stable abnormal imaging findings compared to priors. [facility] Abdomen/Pelvis CT 08/10/25 14:48 IMPRESSION: Partially visualized pneumopericardium. Bilateral pleural thickening and bronchiectasis of the lung bases, suspicious for chronic changes. Hepatic steatosis. Distended gallbladder without surrounding inflammatory change. Right renal simple cyst. Colonic diverticulosis without evidence of acute diverticulitis. Reading Location: [id number] Brain CT 08/10/25 14:48 IMPRESSION: 1. No acute intracranial abnormality. 2. Age-related senescent changes. Reading Location: [facility] Cervical Spine CT 08/10/25 14:48 IMPRESSION: No evidence of fracture. Diffuse spondylosis with multilevel bilateral facet arthrosis, overall more severe on the left than the right, with disc/osseous bulges and grade 1 anterolisthesis C3-4. Foraminal stenoses at least at C3-7. Discs and spinal canal would be more definitively assessed by MRI. Severe degenerative changes at the atlanto-dens articulation with prominent calcified and posteriorly bowed posterior longitudinal ligament overlying nonspecific soft tissue fullness along the posterior odontoid process, causing noncompressive spinal canal narrowing. This appearance can be seen with rheumatoid arthritis. Bilateral calcific carotid atherosclerosis. Mild left mastoid air cell disease. Reading [facility] Chest CT 08/10/25 19:10 IMPRESSION: Mild pneumomediastinum. Severe chronic interstitial changes within both lungs. Questionable airspace consolidations in the lung bases could represent infiltrates or be the sequela of chronic changes. Mild cardiomegaly with moderate atherosclerosis. Reading Location: [id number] Portable 1 view chest x-ray was obtained. On my independent interpretation, lung dunaway show a left lower lobe infiltrate. There is normal cardiac silhouette. Bony thorax is normal. Radiologist also interpreted the x-ray and agrees. CT scan of the brain was obtained. There is no acute intracranial abnormality. This was interpreted by the radiologist and was also independently reviewed by myself. CT scan of the cervical spine was obtained. There is no acute fracture. There are diffuse degenerative changes and a grade 1 anterolisthesis on C3-C4. There is foraminal stenosis at C3-C7. This was interpreted by the radiologist and was also independently reviewed by myself. CT scan of the abdomen and pelvis was obtained. There is a partially visualized pneumopericardium. There are chronic changes in the lung bases. There is a distended gallbladder without surrounding inflammatory changes. There are renal cysts. There is diverticulosis but no evidence of diverticulitis. There is no free air or free fluid. This was interpreted by the radiologist and was also independently reviewed by myself. Because of the finding of pneumopericardium on CT of the abdomen and pelvis, CT scan of the chest was obtained. There is mild pneumomediastinum. There is mild cardiomegaly noted. This was interpreted by the radiologist and was also independently reviewed by myself. EKG Initial EKG: Attestation: I personally reviewed and interpreted this EKG as follows: Interpretation: Sinus Rhythm (86) and Non-Specific ST Changes Comments: EKG was obtained. On my independent interpretation, it showed a normal sinus rhythm with a rate of 86. [place] interval, QRS interval, and QTc intervals were all normal. There is left axis deviation at -30. There are nonspecific ST-T wave changes. Prior EKG tracings: available for review Prior: Unchanged (04/21/2025) Management Discussion w/another healthcare provider: Hospitalist (Dr. Padilla, Dr. Harrell) Treatment and Re-Evaluation :: Patient was given IV fluids. Patient's blood pressure improved after 1 L normal saline. Patient's blood pressure started to decline again. Patient was given a repeat bolus of normal saline. Patient's blood pressure improved again. Patient's blood pressure started to decline again. Patient was given a dose of her midodrine. Patient's blood pressure improved after this. Patient was started on Rocephin and Zithromax to cover for pneumonia and urinary tract infection. Patient was given calcium, insulin, and glucose for the hyperkalemia. Patient was given Zofran for nausea. Patient and family were advised of her findings. Patient and daughter were advised of the need for transfer because of the pneumomediastinum. Daughter states the patient has been seen at [facility] in the past and would prefer to be transferred there. Case was discussed with the hospitalist at [facility]. He requested that I discussed the case with cardiothoracic surgery. Case was discussed with Dr. Estrada from cardiothoracic surgery. He stated that the patient could be admitted to the hospitalist service and he will see the patient in consultation. Case was discussed with medical ICU, Dr. Peace at the [facility]. He did not feel the patient needed ICU care. He recommended changing the antibiotic to Zosyn and repeat lactate. These were ordered. Patient will be admitted to the hospitalist service, Dr. Caballero. Patient will be transferred to [facility] when a bed becomes available. Patient and family understand and are agreeable with the plan. All questions were answered. Critical Care Time Critical Care Time: Yes Critical care time (excluding procedures): 30-74 minutes (38), Including time spent:, Discussing w/Patient &/or Family/Motor Brakeman, Discussing w/Consultants, Arranging Admission or Transfer and Performing Direct Patient Care at Bedside Discharge Plan Triage Chief Complaint: Fall Other Complaint: General Illness ED Provider: Justo Harry Dx/Rx/DC Orders Clinical Impression: Pneumomediastinum, Pneumonia, Urinary tract infection, Hypotension, Fall Prescriptions: No Action omeprazole 20 MG capsule 20 mg PO DAILY cetirizine 10 mg Tablet 10 mg PO DAILY ergocalciferol (vitamin D2) 1,250 mcg (50,000 unit) capsule 50,000 unit PO .tue levothyroxine 50 mcg tablet 75 mcg PO DAILY Patient Comments: TAKE 75 MCGS WEDNESDAY TO WEDNESDAY ON AN EMPTY STOMACH AND 50 MCGS WEDNESDAY TO WEDNESDAY FOR FOR THYROID acetaminophen 500 mg tablet 1,000 mg PO Q6H PRN (Reason: pain) albuterol sulfate [Ventolin HFA] 90 mcg/actuation HFA aerosol inhaler 2 inh inhalation Q6H PRN (Reason: shortness of breath or wheezing) gabapentin 100 mg capsule 100 mg PO Q12H ondansetron 4 mg tablet,disintegrating 4 mg PO Q6H PRN (Reason: nausea and vomiting) exemestane 25 mg tablet 25 mg PO DAILY potassium chloride 10 mEq tablet extended release 20 meq PO DAILY torsemide 20 mg tablet 20 mg PO DAILY midodrine 5 mg Tablet 10 mg PO TIDCM Qty: 90 2RF aspirin 81 mg Tablet,Chewable 81 mg PO BREAKFAST Qty: 30 2RF metoprolol tartrate 25 mg tablet 25 mg PO BID Qty: 60 2RF atorvastatin [Lipitor] 40 mg tablet 40 mg PO DAILY Qty: 30 2RF Entresto 24-26 mg Tablet 1 tab PO BID Qty: 60 0RF ciprofloxacin HCl 500 mg tablet 500 mg PO Q12H Qty: 10 0RF azithromycin 500 mg tablet 500 mg PO DAILY cefdinir 300 mg capsule 300 mg PO BID ceftriaxone 1 gram recon soln 1 g IM DAILY sacubitril-valsartan [Entresto] 24-26 mg tablet 1 tab PO BID loratadine [Allerclear] 10 mg tablet 10 mg PO DAILY magnesium 200 mg tablet 400 mg PO DAILY melatonin 5 mg capsule 5 mg PO pantoprazole 20 mg tablet,delayed release (DR/EC) 20 mg PO DAILY multivitamin [Daily Multi-Vitamin] Tablet 1 tab PO DAILY venlafaxine 150 mg capsule,extended release 24hr 150 mg PO DAILY ascorbic acid (vitamin C) [C-500] 500 mg tablet 500 mg PO DAILY Primary Care Provider: Jonn Gallagher Referrals: Jonn Gallagher MD [Primary Care Provider, Internal Medicine] Print Language: Latvian Disposition Disposition: Acute Care Hospital Discharge Location: [facility]
[2025-08-10 14:19] LABS: SITE Not entered; VBG BASE EXCESS 1 mmol/L (-1.0-3.5); VBG PO2 65 mmHg (25-40); VBG SO2 94 % (50-70); VBG TCO2 26 mmol/L (23-33)
[2025-08-10 14:30] LABS: Partial Thromboplast Time 28.4 Seconds (24.1-36.2); Prothrombin Time (Protime)PT. 16.9 SECONDS (11.7-14.9)
[2025-08-10 14:32] LABS: Differential Indicated SCAN CRITERIA MET
[2025-08-10 14:44] LABS: CPK Total, Creatine Kinase 96 U/L (24-195)
[2025-08-10 14:46] LABS: Anion Gap 13 (5-15); BUN 76 mg/dL (4-19); BUN/Creat Ratio 32.2 RATIO (10-20); Calcium,Total 9.1 mg/dL (7.6-11.0); Carbon Dioxide 23.8 mmol/L (21.0-32.0); Chloride 94 mmol/L (98-108); Estimated Creatinine Clearance 16.02 ml/min (50-250); Glucose 109 mg/dL (70-99); Potassium 6.4 mmol/L (3.3-5.1)
--- NOTE | 2025-08-10 14:48 | CT_ITS ---
PROCEDURE: BRAIN/HEAD WITHOUT CONTRAST 08/10/2025 REASON FOR EXAM: TRAUMA. Fall. Increased confusion. Has UTI and metastatic breast cancer. TECHNIQUE: Procedure Code: CTBR Modality: CT Procedure: BRAIN/HEAD WITHOUT CONTRAST Coronal and Sagittal reconstruction series were provided. One or more dose reduction techniques were used (e.g., Automated exposure control, adjustment of the mA and/or kV according to patient size, use of iterative reconstruction technique. RADIATION DOSE SUMMARY: CTDlvol: 44.99, 12.28, 12.34 mGy DLP: 1634.63 mGycm COMPARISON: 04/01/2025 FINDINGS: BRAIN: No acute intraparenchymal hemorrhage. No mass lesion. No CT evidence for acute territorial infarct. No midline shift or extra-axial collection. Stable left cerebellar calcification. Diffuse cerebral volume loss with corresponding ventricular prominence. Mild periventricular white matter low attenuation, likely microvascular ischemic changes. VENTRICLES: No hydrocephalus. ORBITS: Intraocular lens implants bilaterally. The orbits are otherwise unremarkable. SINUSES AND MASTOIDS: The paranasal sinuses and right mastoid air cells are clear. Few opacified left mastoid air cells. SOFT TISSUES: No acute abnormality seen. No radiodense foreign body. BONES: The calvarium is intact. No acute osseous abnormality seen. OTHER: Calcified carotid siphons and vertebral arteries. CT/Brain/Head without Contrast IMPRESSION: 1. No acute intracranial abnormality. 2. Age-related senescent changes. Reading Location: [id number]
--- NOTE | 2025-08-10 14:48 | CT_ITS ---
PROCEDURE: SPINE CERVICAL WITHOUT CONTRAS 08/10/2025 REASON FOR EXAM: TRAUMA TECHNIQUE: Procedure Code: CTSPC Modality: CT Procedure: SPINE CERVICAL WITHOUT CONTRAS Coronal and Sagittal reconstruction series were provided. One or more dose reduction techniques were used (e.g., Automated exposure control, adjustment of the mA and/or kV according to patient size, use of iterative reconstruction technique. RADIATION DOSE SUMMARY: CTDlvol: 70 mGy DLP: 1635 mGycm FINDINGS: Normal lordosis. Diffuse spondylosis and multilevel bilateral facet arthrosis overall more severe on the left. Severe degenerative changes at the atlanto-dens articulation, with prominent calcified and posteriorly bowed posterior longitudinal ligament, overlying nonspecific soft tissue fullness along the posterior odontoid process causing noncompressive narrowing of the spinal canal. No prevertebral soft tissue swelling. Facets appear well aligned. C2-3: No definite stenosis. C3-4: Grade 1 anterolisthesis and mild disc bulge. Moderate left foraminal stenosis. C4-5: Disc/osseous bulge with possible mild spinal stenosis. Mild left foraminal stenosis. C5-6: Disc/osseous bulge. Mild left and moderate right foraminal stenosis. C6-7: Disc/osseous bulge. Mild bilateral foraminal stenosis. C7-T1: Smaller disc/osseous bulge. Fibrotic changes and scarring in the lung apices. Calcific carotid atherosclerosis bilaterally. No definite soft tissue neck abnormality. No skull base fracture. Mild left mastoid air cell disease. Right mastoid air cells are only partially visualized. No cervical spine fracture. CT/Spine Cervical without Contras IMPRESSION: No evidence of fracture. Diffuse spondylosis with multilevel bilateral facet arthrosis, overall more sev ere on the left than the right, with disc/osseous bulges and grade 1 anterolisthesis C3-4. Foraminal stenoses at least at C3-7. Discs and spinal canal would be more definitively assessed by MRI. Severe degenerative changes at the atlanto-dens articulation with prominent evi cified and posteriorly bowed posterior longitudinal ligament overlying nonspecific soft tissue fullness along the post erior odontoid process, causing noncompressive spinal canal narrowing. This appearance can be seen with rheumatoid arthritis. Bilateral calcific carotid atherosclerosis. Mild left mastoid air cell disease. Reading Location: [facility]
--- NOTE | 2025-08-10 14:48 | CT_ITS ---
PROCEDURE: ABDOMEN/PELVIS WITHOUT CONT 08/10/2025 REASON FOR EXAM: ABDOMINAL PAIN TECHNIQUE: Procedure Code: CTABDPEL Modality: CT Procedure: ABDOMEN/PELVIS WITHOUT CONT Noncontrast technique limits evaluation of the abdominal and pelvic viscera. Coronal and Sagittal reconstruction series were provided. One or more dose reduction techniques were used (e.g., Automated exposure control, adjustment of the mA and/or kV according to patient size, use of iterative reconstruction technique). COMPARISON: 04/01/2025. FINDINGS: Bilateral pleural thickening of the lung bases and bronchiectasis suspicious for a chronic process. Partially visualized pneumopericardium thinly encapsulated fat within the bilateral flanks which may represent injection granulomas or scarring. Chronic healing right lower rib fractures. Degenerative changes of the sacroiliac joints. Left femoral internal fixation. Degenerative changes of the spine. Grade 1 anterolisthesis of L4 on L5. Moderate atherosclerosis. Normal caliber abdominal aorta. No suspicious lymphadenopathy. Hypodense liver indicating steatosis. Distended gallbladder. No surrounding inflammatory changes. The pancreas, spleen, and adrenals are unremarkable. Right kidney simple cyst. Urinary bladder is collapsed around a Mcbride catheter. Colonic diverticulosis without surrounding inflammatory changes. No intraperitoneal free air. CT/Abdomen/Pelvis without Cont IMPRESSION: Partially visualized pneumopericardium. Bilateral pleural thickening and bronchiectasis of the lung bases, suspicious f or chronic changes. Hepatic steatosis. Distended gallbladder without surrounding inflammatory change. Right renal simple cyst. Colonic diverticulosis without evidence of acute diverticulitis. Reading Location: [id number]
[2025-08-10 15:18] LABS: Mucous, Urine 0 SEEN /hpf (<or=2+); Red Blood Cells-Urine 0 SEEN /hpf (0-5); Squamous Epithelial Cells - UA 0 SEEN /hpf (5-10)
[2025-08-10 15:20] LABS: AST(SGOT) 31 U/L (<=31); Alanine Aminotransfer ALT/SGPT 19 U/L (<=34); Albumin, Serum 2.8 g/dL (3.4-4.8); Alkaline Phosphatase 108 U/L (35-104); Bilirubin, Direct 0.14 mg/dL (0.00-0.30); Globulin 4.4 g/dL (2.2-4.2); Lipase 22 U/L (13-75)
[2025-08-10 15:23] LABS: Color, Urine Yellow (Yellow); Glucose, Dipstick Normal (Normal); Ketone-Dipstick Negative (Negative); Leukocyte Esterase-Dipstick 500 /ul (Negative); Nitrite-Dipstick Negative (Negative); Occult Blood-Urine 150 /ul (Negative); Protein-Dipstick 100 mg/dl (Negative); Specific Gravity, Urine 1.020 (1.002-1.030); Urine Bilirubin Dipstick Negative (Negative)
[2025-08-10] MEDS: Calcium Gluconate IV 3 GM in Syringe 1 EACH IV (15:42)
[2025-08-10] MEDS: Insulin Lispro 10 UNIT in Syringe 0 ML 6 UNIT IV (15:42)
[2025-08-10] MEDS: Ceftriaxone 2 GM in 0.9% Normal Saline (50mL MB+) 50 ML IV (16:16)
[2025-08-10] MEDS: Azithromycin 500 MG in 0.9% Normal Saline (250mL Bag) 250 ML 255 MG IV (16:50)
[2025-08-10] MEDS: 0.9% Normal Saline (1000mL) 1,000 ML 1000 ML IV ×2 (16:55→19:22)
--- NOTE | 2025-08-10 16:59 | NURSING ---
pt noted to have bp of 55/46. pt placed in trend. Dr. Harry notified and new order obtained for another 1L bolus saline
--- NOTE | 2025-08-10 17:11 | ED.RN ---
this rn calls down to lab questioning the UA that has not been fully resulted at this time. when this rn asks Elizabeth in lab about the test that was completed and sent down at 1503, Elizabeth states i'm working on some difficulty urine samples. i will get it out when i can. provider notified of the delay of test results.
[2025-08-10 18:18] LABS: Differential Comment SCANNED
--- NOTE | 2025-08-10 19:10 | CT_ITS ---
PROCEDURE: CHEST WITHOUT CONTRAST 08/10/2025 REASON FOR EXAM: PNEUMOPERICARDIUM TECHNIQUE: Chest CT without contrast. Coronal and Sagittal reconstruction series were provided. One or more dose reduction techniques were used (e.g., Automated exposure control, adjustment of the mA and/or kV according to patient size, use of iterative reconstruction technique COMPARISON: Chest radiograph dated earlier on the same day. FINDINGS: Severe chronic interstitial changes are noted throughout both lungs including coarse interstitial markings predominantly along the lateral periphery of the lungs. Questionable airspace consolidations in the lung bases could represent infiltrates or be the sequela of chronic changes. Mild pneumomediastinum. The heart is mildly enlarged. Moderate atherosclerotic calcifications. No thoracic lymphadenopathy. Surgical clips are noted in the right axilla. Moderate thoracic spondylosis. No acute fracture is identified. CT/Chest without Contrast IMPRESSION: Mild pneumomediastinum. Severe chronic interstitial changes within both lungs. Questionable airspace c onsolidations in the lung bases could represent infiltrates or be the sequela of chronic changes. Mild cardiomegaly with moderate atherosclerosis. Reading Location: [id number]
--- NOTE | 2025-08-10 20:45 | ED.RN ---
pt remains in [place],is awake and talking.
--- NOTE | 2025-08-10 22:10 | ED.RN ---
Pt's daughter verbalized that the pt appears to be confused.Pt educated that urinary infection can cause that and but she was not satisfied with that answer.Md happen to walk in and updated her that the pt was accepted by the [facility] and now waiting on a bed. Pt's daughter states she was concerned about her mother because she is confused. MD educted her on UTI. Pt's daughter verbalized, Is this it,my mother is going to lay here with no food or drink and looking around. The MD said yes. Daughter verbalized that there has been times where she was not impressed with the doctor or nurses.Anderson listened to her.
[2025-08-11] VITALS (19 sets, daily range): BP systolic 79–115; BP diastolic 44–81; PULSE 68–106; RESP 14–22; TEMP 36.6–36.8; O2SAT 95–100
[2025-08-11] MEDS: Piperacil/Tazobactam 4.5 GM in 0.9% Normal Saline (100mL MB+) 100 ML IV (00:02)
[2025-08-11 06:05] LABS: Anion Gap 11 (5-15); BUN 60 mg/dL (4-19); BUN/Creat Ratio 33.7 RATIO (10-20); Calcium,Total 8.6 mg/dL (7.6-11.0); Carbon Dioxide 22.7 mmol/L (21.0-32.0); Chloride 102 mmol/L (98-108); Estimated Creatinine Clearance 21.13 ml/min (50-250); Glucose 74 mg/dL (70-99); Potassium 5.0 mmol/L (3.3-5.1)
[2025-08-11] MEDS: Piperacil/Tazobactam 3.375 GM in 0.9% Normal Saline (50mL MB+) 50 ML IV (09:17)
[2025-08-11] MEDS: SACUBITRIL/VALSARTAN 24/26 MG TABLET 1 EACH PO (09:17)
--- NOTE | 2025-08-11 09:33 | ED.RN ---
INFORMED PT DAUGHTER THAT [facility] NOT ABLE TO ACCEPT PT D/T EXTENDED WAIT TIME. ALTERNATIVE OPTIONS GIVEN. DAUGHTER REQUESTING PT GO TO [facility] OR [facility] . DR APPIAH INFORMED.
--- NOTE | 2025-08-11 09:41 | PCA ---
CALLED [facility] @ 787 FAXED OVER A FACE SHEET
[2025-08-11 10:32] LABS: Anion Gap 17 (5-15); BUN 59 mg/dL (4-19); BUN/Creat Ratio 34.9 RATIO (10-20); Calcium,Total 8.3 mg/dL (7.6-11.0); Carbon Dioxide 17.1 mmol/L (21.0-32.0); Chloride 104 mmol/L (98-108); Estimated Creatinine Clearance 22.24 ml/min (50-250); Glucose 112 mg/dL (70-99); Potassium 4.3 mmol/L (3.3-5.1)
[2025-08-11 10:46] LABS: Hematocrit 39.8 % (37-47); Hemoglobin 12.6 g/dL (12.0-15.0); Immature Granulocytes Count 0.120 X10^3/uL (0.0-0.0); Mean Corp Hgb Conc 31.7 g/dL (32-36); Mean Corpuscular Volume 95.9 fL (81-99); Mean Platelet Vol. 9.5 fl (6.2-12.0); NRBC Flagged by Analyzer 0 % (0-5); Platelet Count 400 K/mm3 (150-450); RBC Distribution Width CV 15.4 % (11.6-14.6); RBC Distribution Width SD 54.6 fl (35.1-43.9); Red Blood Count 4.15 M/mm3 (4.2-5.4); White Blood Count 18.8 K/mm3 (4.4-11.0)
--- NOTE | 2025-08-11 12:05 | PCA ---
CALLED [facility] @ 1200 THEY SAID NO FAXED WAS RECEIVED. THE FAX CONFORMATION SAID IT WENT THROUGH @ [phone]. I REFAXED IT
--- NOTE | 2025-08-11 12:13 | ED.RN ---
pharmacy called for pts meds
--- NOTE | 2025-08-11 13:31 | PCA ---
CALLED [facility] A@ [phone] AND THEE WILL KEEP HER EYE OUT FOR AN ICU BED AND SEE IF THEY CAN TAKE HER BEFORE MAIN CAMPUS AND CALL BACK AND LET US KNOW.
--- NOTE | 2025-08-11 14:13 | PCA ---
[facility] CALLED WITH ACCEPTING INFO @ 1403 BED ASSIGNMENT [id number] BED 8
--- NOTE | 2025-08-11 17:05 | ED.RN ---
THIS RN CALLED REPORT AT [phone]
== END 2025-08-11 17:05 | disposition short-term general hospital (02) ==
PROVIDERS: Emergency Medicine; Student in an Organized Health Care Education/Training Program; Emergency Provider Emergency Medicine; PCP Internal Medicine; Visit Provider Emergency Medicine
DX: J98.2 Interstitial emphysema (principal); I10 Essential (primary) hypertension; I95.9 Hypotension, unspecified; R10.10 Upper abdominal pain, unspecified; N39.0 Urinary tract infection, site not specified; W06.XXXA Fall from bed, initial encounter; J18.9 Pneumonia, unspecified organism; Z85.3 Personal history of malignant neoplasm of breast; Z90.11 Acquired absence of right breast and nipple; E03.9 Hypothyroidism, unspecified; K21.9 Gastro-esophageal reflux disease without esophagitis
CPT/HCPCS: 36415; 70450; 71045; 71250; 72125; 74176; 80048; 80076; 81001; 82550; 82803; 82962; 83605; 83690; 85025; 85610; 85730; 86850; 86900; 86901; 87040; 87077; 87086; 87088; 87186; 93005; 96361; 96365; 96366; 96367; 96375; 99285; A4216; J0612; J0696; J2405